=== PATIENT | female | born 1935 ===

== ENCOUNTER 2016-06-21 11:05 | Inpatient (IN) | payer OTHER ==
[2016-06-21 11:06] VITALS: BMI 23.0
--- NOTE | 2016-06-21 11:58 | RAD ---
HISTORY: SOB COMPARISON: Chest x-ray performed 05/11/16 TECHNIQUE: Chest, one view. FINDINGS: LUNGS: Mild left basilar atelectasis or infiltrate. Please note that chest x-ray has limited sensitivity for the detection of pulmonary masses. PLEURA: No significant pleural effusion identified. No definite pneumothorax . CARDIOVASCULAR: Cardiomegaly. OSSEOUS STRUCTURES: Degenerative changes. Acromioclavicular arthropathy. VISUALIZED UPPER ABDOMEN: Unremarkable. OTHER FINDINGS: Right vascular stent. IMPRESSION: Mild left basilar atelectasis or infiltrate. Cardiomegaly.
[2016-06-21 11:59] LABS: BASO % 1.2 % (0.0-2.0); EOS # 0.1 K/uL (0.0-0.7); EOS % 3.7 % (0.0-4.0); HEMATOCRIT 33.5 % (34.0-47.0); LYMPH # 0.6 K/uL (1.0-4.3); LYMPH % 20.5 % (20.0-40.0); MEAN CELL VOLUME 94.6 fL (81.0-99.0); MEAN CORPUSCULAR HEMOGLOBIN 30.7 pg (27.0-31.0); MEAN CORPUSCULAR HGB CONC 32.5 g/dL (33.0-37.0); MEAN PLATELET VOLUME 8.5 fL (7.2-11.7); MONO # 0.4 K/uL (0.0-0.8); MONO % 14.6 % (0.0-10.0); RED CELL DISTRIBUTION WIDTH 15.7 % (11.5-14.5)
[2016-06-21 12:05] LABS: WHITE BLOOD COUNT 2.9 K/uL (4.8-10.8)
[2016-06-21 12:08] LABS: POTASSIUM 4.8 mmol/L (3.6-5.2)
[2016-06-21 12:10] LABS: VENOUS BLOOD GAS BASE EXCESS 14.3 mmol/L (0.0-2.0); VENOUS BLOOD GAS PCO2 61 mmHg (40-60); VENOUS BLOOD PH 7.44 (7.32-7.43)
[2016-06-21 12:10] LABS: ALB/GLOB RATIO 1.1 (1.0-2.1); CALCIUM 9.2 mg/dl (8.6-10.4); TOTAL PROTEIN 7.5 g/dL (6.3-8.3)
[2016-06-21 12:22] LABS: TROPONIN I 0.033 ng/mL (0.00-0.120)
--- NOTE | 2016-06-21 12:27 | C.PDOC ---
Time Seen by Provider: 06/21/16 11:22 Chief Complaint (Nursing): Shortness Of Breath Past Medical History Vital Signs: Last Vital Signs Temp 99.6 F 06/21/16 11:15 Pulse 92 H 06/21/16 11:46 Resp 19 06/21/16 11:46 BP 146/52 L 06/21/16 11:46 Pulse Ox 96 06/21/16 11:46 - Medical History PMH: Anemia, CHF, COPD, HTN, Hypercholesterolemia, Hypothyroidism, End Stage Renal Disease, Chronic Kidney Disease (ESRF, HD T, TH, SA) Denies: HIV, Kidney Stones, Pulmonary Embolism, Sleep Apnea Surgical History: (x3) - [facility] Procedures ASSISTANCE WITH RESPIRATORY VENTILATION, 24-96 HRS, CPAP (03/19/15) ASSISTANCE WITH RESPIRATORY VENTILATION, <24 HRS, CPAP (05/31/15) CONTINUOUS INVASIVE MECHANICAL VENTILATION <96 CONSEC HRS (07/13/13) HEMODIALYSIS (08/25/14) INJECT/INFUSE NEC (04/03/14) NON-INVASIVE MECHANICAL VENTILATION (08/25/14) PERFORMANCE OF URINARY FILTRATION, MULTIPLE (05/31/15) VACCINATION NEC (01/01/14) VENOUS CATHETERIZATION NEC (07/13/13) Family History: States: Unknown Family Hx - Social History Hx Alcohol Use: No Hx Substance Use: No - Immunization History Hx Tetanus Toxoid Vaccination: No Hx Influenza Vaccination: No Hx Pneumococcal Vaccination: Yes ED Course And Treatment - Laboratory Results Result Diagrams: 06/21/16 11:49 06/21/16 11:49 O2 Sat by Pulse Oximetry: 96 - Other Rad cxr X-Ray: Viewed By Me, Read By Radiologist Interpretation: Accession No. : [id number]. Patient Name / ID : SONIA ROSS / [id number]. Exam Date : 06/21/2016 11:28:13 ( Approved ). Study Comment : Sex / Age : F / 80Y. Creator : Yaima Morgan MD. Dictator : Yaima Morgan MD. Expansion Joint Builder : Sheet Metal Shop Foreman : Yaima Morgan MD. Approver2 : Report Date : 06/21/2016 11:57:24. My Comment : . HISTORY: SOB. COMPARISON: Chest x-ray performed 05/11/16. TECHNIQUE: Chest, one view. FINDINGS: LUNGS: Mild left basilar atelectasis or infiltrate. Please note that chest x-ray has limited sensitivity for the detection of pulmonary masses. PLEURA: No significant pleural effusion identified. No definite pneumothorax . CARDIOVASCULAR: Cardiomegaly. OSSEOUS STRUCTURES: Degenerative changes. Acromioclavicular arthropathy. VISUALIZED UPPER ABDOMEN: Unremarkable. OTHER FINDINGS: Right vascular stent. IMPRESSION: Mild left basilar atelectasis or infiltrate. Cardiomegaly.
--- NOTE | 2016-06-21 12:29 | C.PDOC ---
History Of Present Illness 80 y/o female whose PMHx includes ESRD on HD, presents to the ED for evaluation of shortness of breath, cough productive of clear sputum, fatigue, and generalized weakness which began around 3 days ago. Patient states her last hemodialysis was yesterday, and reports it did not improve her symptoms. She denies fever/chills, chest pain, abdominal pain, nausea/vomiting, worsening lower extremity swelling. Time Seen by Provider: 06/21/16 11:22 Chief Complaint (Nursing): Shortness Of Breath History Per: Patient History/Exam Limitations: no limitations Onset/Duration Of Symptoms: Days (3) Current Symptoms Are (Timing): Still Present Quality: denies: "Pain" Exacerbating Factor(s): Coughing Current Respiratory Medications: See Home Med List Severity: Moderate Associated Symptoms: Productive Cough (clear sputum ). denies: Fever, Chills, Chest Pain, Ankle/Leg Swelling Additional History Per: Patient Past Medical History Reviewed: Historical Data, Nursing Documentation, Vital Signs Vital Signs: Last Vital Signs Temp 98 F 06/26/16 16:00 Pulse 87 06/26/16 16:00 Resp 20 06/26/16 16:00 BP 119/65 06/26/16 16:00 Pulse Ox 100 06/26/16 16:00 - Medical History PMH: Anemia, CHF, COPD, HTN, Hypercholesterolemia, Hypothyroidism, End Stage Renal Disease, Chronic Kidney Disease (ESRF, HD T, , SA) Surgical History: (x3) - [facility] Procedures ASSISTANCE WITH RESPIRATORY VENTILATION, 24-96 HRS, CPAP (03/19/15) ASSISTANCE WITH RESPIRATORY VENTILATION, <24 HRS, CPAP (05/31/15) CONTINUOUS INVASIVE MECHANICAL VENTILATION <96 CONSEC HRS (07/13/13) HEMODIALYSIS (08/25/14) INJECT/INFUSE NEC (04/03/14) NON-INVASIVE MECHANICAL VENTILATION (08/25/14) PERFORMANCE OF URINARY FILTRATION, MULTIPLE (05/31/15) VACCINATION NEC (01/01/14) VENOUS CATHETERIZATION NEC (07/13/13) Family History: States: No Known Family Hx - Social History Hx Alcohol Use: No Hx Substance Use: No - Immunization History Hx Tetanus Toxoid Vaccination: No Hx Influenza Vaccination: No Hx Pneumococcal Vaccination: Yes Review Of Systems Except As Marked, All Systems Reviewed And Found Negative. Constitutional: Positive for: Weakness (generalized ), Other (+fatigue ) Cardiovascular: Negative for: Chest Pain, Palpitations Respiratory: Positive for: Cough, Shortness of Breath, Sputum (clear ) Gastrointestinal: Negative for: Nausea, Vomiting, Abdominal Pain, Diarrhea Physical Exam - Physical Exam Appears: Non-toxic, No Acute Distress, Other (comfortable) Skin: Normal Color, Warm, Dry Head: Normacephalic Eye(s): bilateral: Normal Inspection Nose: Normal, No Discharge Oral Mucosa: Moist Throat: Normal, No Erythema, No Exudate Neck: Supple Cardiovascular: Rhythm Regular, Murmur (5/6 holosystolic murmur ) Respiratory: Normal Breath Sounds, No Rales, No Rhonchi, No Wheezing, Other ( patient speaking in full sentences ) Gastrointestinal/Abdominal: Normal Exam, Bowel Sounds, Soft, No Tenderness, No Guarding, No Rebound Extremity: Normal ROM, No Calf Tenderness, Capillary Refill (< 2 seconds), No Swelling (b/l lower extremities ), Other (Right Upper Extremity: AV Fistula present with palpable thrill ) Pulses: Left Dorsalis Pedis: Normal, Right Dorsalis Pedis: Normal Neurological/Psych: Oriented x3 Gait: Steady ED Course And Treatment - Laboratory Results Result Diagrams: 06/25/16 07:03 06/25/16 07:03 O2 Sat by Pulse Oximetry: 96 (RA) Pulse Ox Interpretation: Normal - Other Rad CXR X-Ray: Interpreted by Me, Viewed By Me, Read By Radiologist Interpretation: Accession No. : [id number]. Patient Name / ID : SONIA ROSS / [id number]. Exam Date : 06/21/2016 11:28:13 ( Approved ). Study Comment : Sex / Age : F / 80Y. Creator : Yaima Morgan MD. Dictator : Yaima Morgan MD. Criminal Justice Department Chair : [employer]fuels Plant Construction Worker : Yaima Morgan MD. Approver2 : Report Date : 06/21/2016 11:57:24. My Comment : . HISTORY: SOB. COMPARISON: Chest x-ray performed 05/11/16. TECHNIQUE: Chest, one view. FINDINGS: LUNGS: Mild left basilar atelectasis or infiltrate. Please note that chest x-ray has limited sensitivity for the detection of pulmonary masses. PLEURA: No significant pleural effusion identified. No definite pneumothorax . CARDIOVASCULAR: Cardiomegaly. OSSEOUS STRUCTURES: Degenerative changes. Acromioclavicular arthropathy. VISUALIZED UPPER ABDOMEN: Unremarkable. OTHER FINDINGS: Right vascular stent. IMPRESSION: Mild left basilar atelectasis or infiltrate. Cardiomegaly. Progress Note: Blood work, EKG, CXR ordered and reviewed. Patient given IV solumedrol, duoneb treatments. IV rocephin and IV azithromycin ordered due to infiltrate on CXR. Reevaluation Time: 13:50 Reassessment Condition: Unchanged (Patient reassessed, still c/o SOB. On exam, she now has more wheezing, no accessory muscle use. Will order nebulizer treatments, solumedrol. BNP also very elevated, patient still making UA - IV Lasix ordered. Patient will need admission for pneumonia, dyspnea, asthma, CHF. ) - Physician Consult Information Physician Contacted: Laith Falk Outcome Of Conversation: Discussed patient with Dr. Falk, he agrees with admission for asthma/copd, fluid overload, dyspnea, pneumonia. Disposition - Disposition Disposition: HOSPITALIZED Disposition Time: 14:21 Condition: STABLE - Clinical Impression Clinical Impression: Pneumonia, Dyspnea, Asthma exacerbation, ESRD (end stage renal disease) on dialysis - Scribe Statement The provider has reviewed the documentation as recorded by the Scribe (Vianney Ch) Provider Attestation: All medical record entries made by the Scribe were at my direction and personally dictated by me. I have reviewed the chart and agree that the record accurately reflects my personal performance of the history, physical exam, medical decision making, and the department course for this patient. I have also personally directed, reviewed, and agree with the discharge instructions and disposition. Decision To Admit - Pt Status Changed To: Hospital Disposition Of: Inpatient - Admit Certification Admit to Inpatient:: After my assessment, the patient will require hospitalization for at least two midnights. This is because of the severity of symptoms shown, intensity of services needed, and/or the medical risk in this patient being treated as an outpatient. - InPatient: Physician Admission Certification: I certify that this patient requires 2 or more midnights of care for the following reason:: see notes - . Bed Request Type: Telemetry Admitting Physician: Laith Falk Patient Diagnosis: Pneumonia, Dyspnea, Asthma exacerbation, ESRD (end stage renal disease) on dialysis
[2016-06-21] MEDS ORDERED: Albuterol-Ipratrop 3 mg / 0.5 (3 ml) UD INH STA ×2 (13:49)
[2016-06-21] MEDS ORDERED: Albuterol-Ipratrop 3 mg / 0.5 (3 ml) UD ONE (14:06)
[2016-06-21] MEDS ORDERED: cefTRIAXone IV 1 gm in Dextros 50 ML IV ONE (14:20)
[2016-06-21] MEDS ORDERED: Azithromycin 500 MG in Sodium Chloride 0.9% 250 ML IVPB STA (14:21)
[2016-06-21] MEDS ORDERED: cefTRIAXone IV 1 gm in Dextros 50 ML IVPB ONE (14:36)
[2016-06-21] MEDS ORDERED: Azithromycin 500mg/250ML NS 250 ML IVPB ONE (14:53)
--- NOTE | 2016-06-21 14:59 | CP.PCM.HP ---
Past Patient History - Infectious Disease Hx of Infectious Diseases: None - Tetanus Immunizations Tetanus Immunization: Unknown - Past Medical History & Family History Past Medical History?: Yes - Past Social History Smoking Status: Never Smoked - CARDIAC Hx Congestive Heart Failure: Yes Hx Hypercholesterolemia: Yes Hx Hypertension: Yes - PULMONARY Hx Chronic Obstructive Pulmonary Disease (COPD): Yes - NEUROLOGICAL Hx Neurological Disorder: No - HEENT Hx HEENT Problems: No - RENAL Hx Chronic Kidney Disease: Yes (ESRF, HD T, TH, SA) - ENDOCRINE/METABOLIC Hx Hypothyroidism: Yes - HEMATOLOGICAL/ONCOLOGICAL Hx Anemia: Yes - INTEGUMENTARY Hx Dermatological Problems: No - MUSCULOSKELETAL/RHEUMATOLOGICAL Hx Falls: No - GASTROINTESTINAL Hx Gastrointestinal Disorders: No - GENITOURINARY/GYNECOLOGICAL Hx Genitourinary Disorders: No - PSYCHIATRIC Hx Substance Use: No - SURGICAL HISTORY Hx Surgeries: Yes Hx Arteriovenous Shunt: Yes Hx Vascular Access Device: Yes (Right arm Av fistula) - ANESTHESIA Hx Anesthesia: Yes Hx Anesthesia Reactions: No Meds Allergies/Adverse Reactions: Allergies Allergy/AdvReac Type Severity Reaction Status Date / Time No Known Allergies Allergy Verified 06/21/16 11:37 Results - Vital Signs Recent Vital Signs: Last Vital Signs Temp 99.6 F 06/21/16 11:15 Pulse 74 06/21/16 13:47 Resp 19 06/21/16 13:47 BP 202/70 H 06/21/16 13:47 Pulse Ox 96 06/21/16 13:58 - Labs Result Diagrams: 06/21/16 11:49 06/21/16 11:49
--- NOTE | 2016-06-21 17:49 | CP.PCM.HP ---
<Syeda Yarbrough I - Last Filed: 06/21/16 19:02> History of Present Illness - History of Present Illness History of Present Illness: PGY3 on Medicine Service Patient is a 80 year old female with pmhx of HTN, ESRD on HD and Hypothyroidism who presents to the ED for productive cough with green phlegm since Wednesday. Patient's last HD was on Wednesday and she is usually compliant with dialysis Her daughter noticed that today she fatigued easily nad became dyspneic when she walked 3 blocks. Denies fevers, chills, chest pain, palpitations, dizziness , SOB, headache, nausea, vomiting or abdominal pain. Pmhx: as above Surg hx: Denies Fam hx: Cancer- both parents (unknown types) Social hx: denies smoking, drinking or drugs Allergies: NKDA PMD: Delicia Present on Admission - Present on Admission Any Indicators Present on Admission: No Review of Systems - Constitutional Constitutional: absent: Chills, Fever - EENT Eyes: absent: Change in Vision Nose/Mouth/Throat: absent: Sore Throat - Cardiovascular Cardiovascular: absent: Chest Pain, Palpitations - Respiratory Respiratory: Cough, Dyspnea, Change in Mucous Color. absent: Pain on Inspiration, Chest Congestion - Gastrointestinal Gastrointestinal: absent: Abdominal Pain, Diarrhea, Nausea, Vomiting - Genitourinary Genitourinary: absent: Dysuria - Musculoskeletal Musculoskeletal: absent: Numbness, Tingling - Integumentary Integumentary: absent: Rash - Neurological Neurological: absent: Dizziness, Headaches, Weakness - Psychiatric Psychiatric: absent: Confusion - Endocrine Endocrine: absent: Palpitations - Hematologic/Lymphatic Hematologic: absent: Easy Bleeding Past Patient History - Infectious Disease Hx of Infectious Diseases: None - Tetanus Immunizations Tetanus Immunization: Unknown - Past Medical History & Family History Past Medical History?: Yes - Past Social History Smoking Status: Never Smoked - CARDIAC Hx Congestive Heart Failure: Yes Hx Hypercholesterolemia: Yes Hx Hypertension: Yes - PULMONARY Hx Chronic Obstructive Pulmonary Disease (COPD): Yes - NEUROLOGICAL Hx Neurological Disorder: No - HEENT Hx HEENT Problems: No - RENAL Hx Chronic Kidney Disease: Yes (ESRF, HD T, , SA) - ENDOCRINE/METABOLIC Hx Hypothyroidism: Yes - HEMATOLOGICAL/ONCOLOGICAL Hx Anemia: Yes - INTEGUMENTARY Hx Dermatological Problems: No - MUSCULOSKELETAL/RHEUMATOLOGICAL Hx Falls: No - GASTROINTESTINAL Hx Gastrointestinal Disorders: No - GENITOURINARY/GYNECOLOGICAL Hx Genitourinary Disorders: No - PSYCHIATRIC Hx Substance Use: No - SURGICAL HISTORY Hx Surgeries: Yes Hx Arteriovenous Shunt: Yes Hx Vascular Access Device: Yes (Right arm Av fistula) - ANESTHESIA Hx Anesthesia: Yes Hx Anesthesia Reactions: No Meds Allergies/Adverse Reactions: Allergies Allergy/AdvReac Type Severity Reaction Status Date / Time No Known Allergies Allergy Verified 06/21/16 11:37 Physical Exam - Constitutional Appears: Non-toxic, No Acute Distress - Head Exam Head Exam: ATRAUMATIC, NORMAL INSPECTION, NORMOCEPHALIC - Eye Exam Eye Exam: Normal appearance - ENT Exam ENT Exam: Mucous Membranes Moist - Respiratory Exam Respiratory Exam: Decreased Breath Sounds (in LLL), Prolonged Expiratory Phase, Rhonchi - Cardiovascular Exam Cardiovascular Exam: REGULAR RHYTHM, RRR, +S1, +S2, Systolic Murmur (2/6 systolic murmur) - GI/Abdominal Exam GI & Abdominal Exam: Normal Bowel Sounds, Soft. absent: Tenderness - Extremities Exam Extremities exam: Positive for: normal inspection. Negative for: pedal edema - Neurological Exam Neurological exam: Alert, Oriented x3 - Psychiatric Exam Psychiatric exam: Normal Affect, Normal Mood - Skin Skin Exam: Dry, Normal Color, Warm Results - Vital Signs Recent Vital Signs: Last Vital Signs Temp 98.8 F 06/21/16 17:22 Pulse 96 H 06/21/16 17:22 Resp 20 06/21/16 17:22 BP 135/75 06/21/16 17:22 Pulse Ox 92 L 06/21/16 17:22 - Labs Result Diagrams: 06/21/16 11:49 06/21/16 11:49 Labs: Laboratory Results - last 24 hr 06/21/16 16:28 Lactic Acid 2.0 Assessment & Plan - Assessment and Plan (Free Text) Assessment: 1. Sepsis from Pneumonia Afebrile WBC count 2.9, HR >95 Infiltrate seen on CXR Lactic acid 1.7 Received Zithromax IVPB and Rocephin IVPB Gave 1 dose of Vancomyin 500 mg IVPB Follow up blood and urine cx Monitor CBC and vitals 2. Leukopenia 2.9 Check HIV Could be from sepsis, HIV or malignancy 3. Anemia Hgb 10.9 Order iron studies Monitor CBC 4. Pro BNP elevation 22,000 Order 2D echo 5. ESRD on HD Consent for HD obtained Continue HD on TTS Consult Nephro Dr. Culp 6. HTN Resume home med of Norvasc 5 mg po daily 7. Hypothyroidism Continue Levothyroxine 25 mcg po daily check TSH 8. Prophylaxis SCD's Protonix <Krysta Rojas V - Last Filed: 06/22/16 03:26> Results - Vital Signs Recent Vital Signs: Last Vital Signs Temp 97.9 F 06/21/16 23:45 Pulse 76 06/22/16 00:56 Resp 20 06/21/16 23:45 BP 136/70 06/21/16 23:45 Pulse Ox 98 06/21/16 23:45 - Labs Result Diagrams: 06/21/16 11:49 06/21/16 11:49 Labs: Laboratory Results - last 24 hr 06/21/16 16:28 Lactic Acid 2.0 Attending/Attestation - Attestation I have personally seen and examined this patient.: Yes I have fully participated in the care of the patient.: Yes I have reviewed all pertinent clinical information: Yes Notes (Text): This is late computer entry for 06/21/16. Patient seen at bedside with daughter and son-in law in [facility] [address] 14 in the Emergency Room. Patient is 80 year old Female comes in cough for about 3 days, productive, nonbloody, and does not take any medications nor antibiotics to treat the cough. Patient's daughter reports she is ESRD, about 9 years now, and reports her days are Wednesday//Wednesday and that patient tolerated her dialysis session on Wednesday without complaints. Patient is normally ambulatory, but has shortness of breathe while walking. Family is unaware if she has had her flu nor pneumonia vaccines this year. Family reports she took her blood pressure medication prior to coming. Patient noted to have uncontrolled blood pressure as high SBP: 200s, but remains asymptomatic except for productive cough. 1. Sepsis * High suspicion * Criteria: leukopenia, tachycardic and source of infection: pneumonia * Chest xray (06/21): mild left basilar atelectasis or infiltrate * Per pneumonia severity index, high risk, indicated for inpatient * VBG: lactic acid 1.7, per lactic acid in plasma; 2.0 * In the ED, Received Zithromax IVPB and Rocephin IVPB; ordered for additional dose of 1 dose of Vancomyin 500 mg IVPB X1 * Azithromycin 500mg IV daily and Rocephin 1 gram IV qdaily * F/u blood cultures and urine cultures * Monitor temperature and white count 2. Community Acquired pneumonia * High suspicion * Criteria: leukopenia, tachycardic and source of infection: pneumonia * Chest xray (06/21): mild left basilar atelectasis or infiltrate * Per pneumonia severity index, high risk, indicated for inpatient * VBG: lactic acid 1.7, per lactic acid in plasma; 2.0 * In the ED, Received Zithromax IVPB and Rocephin IVPB; ordered for additional dose of 1 dose of Vancomyin 500 mg IVPB X1 * Azithromycin 500mg IV daily and Rocephin 1 gram IV qdaily * F/u blood cultures and urine cultures * Monitor temperature and white count 3. Leukopenia * WBC 2.9; N: 1.7; in review of EMR, patient has not be leukopenic nor been on antibiotic recently * Check HIV * Note: patient's family hx strong for cancer * Possible related to sepsis * Continue to monitor 4. Anemia * Hgb 10.9 * Order iron studies, b12, ret count, folate, occult blood * Monitor CBC * strong suspicion for anemia of chronic disease 5. Pro BNP elevation * proBNP 22,000 * Patient is ESRD; likely requires dialysis * patient ordered for 2d echo, last echo was about one year per EMR 6. ESRD on HD * Consent for HD obtained by the resident * Continue HD on TTS * Consult Nephro (Dr. Culp) on board 6. Hypertensive urgency * Resume home med of Norvasc 5 mg po daily and given additional dose of Lasix ( patient makes urine) 7. Hypothyroidism * Continue Levothyroxine 25 mcg po daily * check TSH in AM 8. Prophylaxis * SCD's b/l * Protonix 40mg IV daily for GI ppx * Heparin 5000units subq 8hours * PT eval * Florastor 250mg PO bid
[2016-06-22] MEDS: Levothyroxine 25 MCG TAB PO SCH (06:08)
[2016-06-22 07:31] LABS: HEMATOCRIT 30.7 % (34.0-47.0); LYMPH # 0.5 K/uL (1.0-4.3); MEAN CORPUSCULAR HGB CONC 32.5 g/dL (33.0-37.0); MONO # 0.2 K/uL (0.0-0.8); RETIC% 0.4 % (0.5-1.5)
[2016-06-22 07:41] LABS: IRON 65 ug/dL (37-170)
[2016-06-22 07:45] LABS: BASO % 0.3 % (0.0-2.0); LYMPH % 15.2 % (20.0-40.0); MEAN CELL VOLUME 93.9 fL (81.0-99.0); MEAN CORPUSCULAR HEMOGLOBIN 30.5 pg (27.0-31.0); MEAN PLATELET VOLUME 8.7 fL (7.2-11.7); MONO % 6.7 % (0.0-10.0); NRBC % 0.3 % (0.0-2.0); RED CELL DISTRIBUTION WIDTH 15.6 % (11.5-14.5)
[2016-06-22 08:11] LABS: CHLORIDE 95 mmol/L (98-107)
[2016-06-22 08:12] LABS: POTASSIUM 5.3 mmol/L (3.6-5.2); SODIUM 141 mmol/L (132-148)
[2016-06-22 08:14] LABS: AST/SGOT 43 U/L (14-36); BILIRUBIN,TOTAL 0.7 mg/dL (0.2-1.3); CARBON DIOXIDE 32 mmol/L (22-30); GFR AFRICAN-AMERICAN 7
[2016-06-22 08:15] LABS: ALB/GLOB RATIO 1.2 (1.0-2.1); ALKALINE PHOSPHATASE 69 U/L (38-126); ALT/SGPT 45 U/L (9-52); BLOOD UREA NITROGEN 47 mg/dL (7-17); CALCIUM 9.1 mg/dl (8.6-10.4); GLUCOSE,RANDOM 137 mg/dL (65-105); TOTAL PROTEIN 7.3 g/dL (6.3-8.3)
[2016-06-22 08:23] LABS: THYROID STIMULATING HORMONE 0.77 mIU/L (0.46-4.68)
[2016-06-22 08:57] LABS: FOLATE > 20.0 ng/mL
[2016-06-22] MEDS: Saccharomyces Boulardi 250 mg Cap PO SCH ×2 (09:41→18:01)
[2016-06-22] MEDS: Multivitamin Vitamin B Complex (Nephro-Vite) Tab PO SCH (09:41)
[2016-06-22] MEDS: Pantoprazole 40 mg EC Tab PO SCH (09:41)
[2016-06-22] MEDS ORDERED: Azithromycin 500 MG in Sodium Chloride 0.9% 250 ML IVPB SCH (10:00)
--- NOTE | 2016-06-22 12:37 | CP.PCM.CON ---
History of Present Illness - History of Present Illness History of Present Illness: 80 y/o female with Hx/o ESRD on maintenance HD TTS, Paroxismal SVT, CHF, hypothyroidism. presented to ER yesterday for C/o SOB & generalized weakness Pts last dialysis was on Wednesday Past Patient History - Infectious Disease Hx of Infectious Diseases: None - Tetanus Immunizations Tetanus Immunization: Unknown - Past Medical History & Family History Past Medical History?: Yes - Past Social History Smoking Status: Never Smoked - CARDIAC Hx Congestive Heart Failure: Yes Hx Hypercholesterolemia: Yes Hx Hypertension: Yes - PULMONARY Hx Chronic Obstructive Pulmonary Disease (COPD): Yes - NEUROLOGICAL Hx Neurological Disorder: No - HEENT Hx HEENT Problems: No - RENAL Hx Chronic Kidney Disease: Yes Hx Dialysis: Yes (HD TT) Type of Dialysis Access: Right Arm AV fistula Date of Last Dialysis Treatment: 06/20/16 - ENDOCRINE/METABOLIC Hx Hypothyroidism: Yes - HEMATOLOGICAL/ONCOLOGICAL Hx Anemia: Yes - INTEGUMENTARY Hx Dermatological Problems: No - MUSCULOSKELETAL/RHEUMATOLOGICAL Hx Falls: No - GASTROINTESTINAL Hx Gastrointestinal Disorders: No - GENITOURINARY/GYNECOLOGICAL Hx Genitourinary Disorders: No - PSYCHIATRIC Hx Substance Use: No - SURGICAL HISTORY Hx Surgeries: Yes Hx Arteriovenous Shunt: Yes Hx Vascular Access Device: Yes (Right arm Av fistula) - ANESTHESIA Hx Anesthesia: Yes Hx Anesthesia Reactions: No Meds Allergies/Adverse Reactions: Allergies Allergy/AdvReac Type Severity Reaction Status Date / Time No Known Allergies Allergy Verified 06/21/16 11:37 - Medications Medications: Current Medications Amlodipine Besylate (Norvasc) 5 mg PO DAILY [facility] Last Admin: 06/22/16 09:41 Dose: 5 mg Epoetin Len (Procrit) 3,000 unit IV MWF [facility] Heparin Sodium (Porcine) (Heparin) 5,000 units SC Q12 [facility] Last Admin: 06/22/16 09:41 Dose: 5,000 units Azithromycin 500 mg/ Sodium (Chloride) 250 mls @ 250 mls/hr IVPB DAILY [facility] Last Admin: 06/22/16 11:24 Dose: 250 mls/hr Ceftriaxone Sodium 1 gm/ (Sodium Chloride) 100 mls @ 100 mls/hr IVPB DAILY [facility] Last Admin: 06/22/16 09:45 Dose: 100 mls/hr Levothyroxine Sodium (Synthroid) 25 mcg PO DAILY@0630 [facility] Last Admin: 06/22/16 06:08 Dose: 25 mcg Pantoprazole Sodium (Protonix Ec Tab) 40 mg PO DAILY [facility] Last Admin: 06/22/16 09:41 Dose: 40 mg Saccharomyces Boulardii (Florastor) 250 mg PO BID [facility] Last Admin: 06/22/16 09:41 Dose: 250 mg Sevelamer Carbonate (Renvela) 1,600 mg PO TIDCC [facility] Last Admin: 06/22/16 12:32 Dose: 1,600 mg Vitamin B Complex/Vit C/Folic Acid (Nephro-Dana) 1 tab PO DAILY [facility] Last Admin: 06/22/16 09:41 Dose: 1 tab Physical Exam - Constitutional Additional comments: Appears in moderate respiratory distress .Sitting up in bed - Head Exam Head Exam: ATRAUMATIC - Eye Exam Additional comments: No icterus - ENT Exam ENT Exam: Mucous Membranes Moist - Neck Exam Additional comments: JVD + @ 45 degrees - Respiratory Exam Additional comments: B/L generalized wheezes & cracles at bases - Cardiovascular Exam Cardiovascular Exam: REGULAR RHYTHM - GI/Abdominal Exam GI & Abdominal Exam: Soft Additional comments: Nontender - Extremities Exam Additional comments: No pedal edema Results - Vital Signs Recent Vital Signs: Last Vital Signs Temp 98.1 F 06/22/16 07:05 Pulse 83 06/22/16 07:05 Resp 18 06/22/16 07:05 BP 158/82 H 06/22/16 07:05 Pulse Ox 100 06/22/16 07:05 - Labs Result Diagrams: 06/22/16 07:08 06/22/16 07:08 Labs: Laboratory Results - last 24 hr 06/21/16 06/22/16 06/22/16 16:28 07:08 07:35 WBC 3.0 L RBC 3.27 L Hgb 10.0 L Hct 30.7 L MCV 93.9 MCH 30.5 MCHC 32.5 L RDW 15.6 H Plt Count 132 MPV 8.7 Neut % (Auto) 77.8 H Lymph % (Auto) 15.2 L [place] % (Auto) 6.7 Eos % (Auto) 0.0 Baso % (Auto) 0.3 Neut # 2.4 Lymph # 0.5 L [place] # 0.2 Eos # 0.0 Baso # 0.0 Retic Count 0.4 L Sodium 141 Potassium 5.3 H Chloride 95 L Carbon Dioxide 32 H Anion Gap 19 BUN 47 H Creatinine 6.9 H Est GFR ( Amer) 7 Est GFR (Non-Af Amer) 6 POC Glucose (mg/dL) 131 H Random Glucose 137 H Lactic Acid 2.0 Calcium 9.1 Iron 65 TIBC 195 L % Saturation 31 Ferritin 1680.0 Total Bilirubin 0.7 AST 43 H D ALT 45 Alkaline Phosphatase 69 Total Protein 7.3 Albumin 4.0 Globulin 3.3 Albumin/Globulin Ratio 1.2 Vitamin B12 662 Folate > 20.0 TSH 3rd Generation 0.77 HIV 1&2 Antibody Screen Negative Assessment & Plan - Assessment and Plan (Free Text) Assessment: ESRD Volume overload HTN CAD Hypothyroidism Plan: Stat dialysis is ordered. Labs reviewed Monitor BP Will revaluate for extra dialysis tomorrow
--- NOTE | 2016-06-22 14:08 | CARD ---
APPROVED REPORT EXAM: Two-dimensional and M-mode echocardiogram with Doppler and color Doppler. Other Information Quality : GoodRhythm : INDICATION Dyspnea Atrial Fibrillation Congestive Heart Failure RISK FACTORS Hypertension Hyperlipidemia Diabetes M-Mode DIMENSIONS RVDd1.39 (2.1-3.2cm)Left Atrium (MM)4.51 (2.5-4.0cm) IVSd0.97 (0.7-1.1cm)Aortic Root2.29 (2.2-3.7cm) LVDd4.93 (4.0-5.6cm)Aortic Cusp Exc.1.46 (1.5-2.0cm) PWd1.11 (0.7-1.1cm)FS (%) 20 % LVDs3.92 (2.0-3.8cm)LVEF (%)42 (>50%) Aortic Valve AoV Peak Tjbbtmti096.7cm/Janell Peak GR.9mmHgAI P 1/2 Alyf080ho Mitral Valve MV E Hojbeexl532.5cm/sMV A Vraicaiw35.6cm/sE/A ratio1.7 TDI E/Lateral E'0.0E/Medial E'0.0 Tricuspid Valve TR Peak Bzlgskzw543eo/sTR Peak Gr.67pvXkRDEU83wiDe LEFT VENTRICLE The left ventricle is normal size. There is normal left ventricular wall thickness. The Ejection Fraction is 40-45%. No regional wall motion abnormalities noted. The left ventricular diastolic function is normal. No left ventricle thrombus noted on this study. There is no ventricular septal defect visualized. There is no left ventricular aneurysm. There is no mass noted in the left ventricle. RIGHT VENTRICLE The right ventricle is normal size. There is normal right ventricular wall thickness. The right ventricular systolic function is normal. ATRIA The left atrium is moderately dilated. The right atrium size is normal. The interatrial septum is intact with no evidence for an atrial septal defect. AORTIC VALVE The aortic valve is normal in structure and function. There is moderate aortic regurgitation. There is no aortic valvular stenosis. There is no aortic valvular vegetation. MITRAL VALVE The mitral valve is normal in structure and function. There is no evidence of mitral valve prolapse. There is no mitral valve stenosis. Mitral regurgitation is moderate. TRICUSPID VALVE The tricuspid valve is normal in structure and function. There is moderate to severe tricuspid regurgitation. Right ventricular systolic pressure is estimated at 50-60 mmHg. There is moderate-severe pulmonary hypertension. There is no tricuspid valve prolapse or vegetation. There is no tricuspid valve stenosis. PULMONIC VALVE The pulmonary valve is normal in structure and function. There is no pulmonic valvular regurgitation. There is no pulmonic valvular stenosis. GREAT VESSELS The aortic root is normal in size. The ascending aorta is normal in size. The pulmonary artery is normal. The IVC is normal in size and collapses >50% with inspiration. PERICARDIAL EFFUSION There is a small loculated posterior pericardial effusion. There is no pleural effusion. <Conclusion> The Ejection Fraction is 40-45%. The left atrium is moderately dilated. There is moderate aortic regurgitation. Mitral regurgitation is moderate. There is moderate to severe tricuspid regurgitation. Right ventricular systolic pressure is estimated at 50-60 mmHg. There is moderate-severe pulmonary hypertension. There is a small loculated posterior pericardial effusion.
--- NOTE | 2016-06-22 14:49 | CP.PCM.PN ---
<Altagracia Loredo - Last Filed: 06/22/16 14:46> Subjective - Date & Time of Evaluation Date of Evaluation: 06/22/16 Time of Evaluation: 14:46 - Subjective Subjective: Patient seen and examined at bedside. Patient complaining of constant cough and shortness of breath. She is currently on 2L nasal cannula. She states she otherwise feels "regular." Patient denies fever, chills, chest pain, palpitations, abdominal pain, nausea, vomiting, diarrhea and constipation. She notes she produces a small amount of urine. Objective - Vital Signs/Intake and Output Vital Signs (last 24 hours): Temp Pulse Resp BP Pulse Ox 98.1 F 83 18 158/82 H 100 06/22/16 07:05 06/22/16 07:05 06/22/16 07:05 06/22/16 07:05 06/22/16 07:05 - Medications Medications: Current Medications Albuterol/Ipratropium (Duoneb 3 Mg/0.5 Mg (3 Ml) Ud) 3 ml INH RQ6 [facility] Amlodipine Besylate (Norvasc) 10 mg PO DAILY [facility] Epoetin Len (Procrit) 3,000 unit IV MWF [facility] Guaifenesin/Dextromethorphan (Robitussin Dm) 5 ml PO Q4H PRN PRN Reason: Cough Heparin Sodium (Porcine) (Heparin) 5,000 units SC Q12 [facility] Last Admin: 06/22/16 09:41 Dose: 5,000 units Moxifloxacin HCl (Avelox Iv 400mg/250ml Ns) 250 mls @ 167 mls/hr IVPB Q24H [facility] Levothyroxine Sodium (Synthroid) 25 mcg PO DAILY@0630 [facility] Last Admin: 06/22/16 06:08 Dose: 25 mcg Pantoprazole Sodium (Protonix Ec Tab) 40 mg PO DAILY [facility] Last Admin: 06/22/16 09:41 Dose: 40 mg Saccharomyces Boulardii (Florastor) 250 mg PO BID [facility] Last Admin: 06/22/16 09:41 Dose: 250 mg Sevelamer Carbonate (Renvela) 1,600 mg PO TIDCC [facility] Last Admin: 06/22/16 12:32 Dose: 1,600 mg Vitamin B Complex/Vit C/Folic Acid (Nephro-Dana) 1 tab PO DAILY [facility] Last Admin: 06/22/16 09:41 Dose: 1 tab - Labs Labs: 06/22/16 07:08 06/22/16 07:08 PT 11.0 SECONDS (9.7-12.2) 06/21/16 11:49 INR 1.0 06/21/16 11:49 APTT 31 SECONDS (21-34) 06/21/16 11:49 - Constitutional Appears: Non-toxic, No Acute Distress - Head Exam Head Exam: ATRAUMATIC, NORMAL INSPECTION, NORMOCEPHALIC - Eye Exam Eye Exam: EOMI, Normal appearance, PERRL - ENT Exam ENT Exam: Mucous Membranes Moist - Neck Exam Neck Exam: Full ROM, Normal Inspection - Respiratory Exam Respiratory Exam: Clear to Ausculation Bilateral, Wheezes, NORMAL BREATHING PATTERN. absent: Rales - Cardiovascular Exam Cardiovascular Exam: +S1, +S2, Murmur. absent: Tachycardia - GI/Abdominal Exam GI & Abdominal Exam: Soft, Normal Bowel Sounds. absent: Guarding, Tenderness - Extremities Exam Extremities Exam: Normal Inspection. absent: Pedal Edema, Tenderness - Neurological Exam Neurological Exam: Alert, Awake - Psychiatric Exam Psychiatric exam: Normal Affect, Normal Mood - Skin Skin Exam: Intact, Normal Color, Warm Assessment and Plan - Assessment and Plan (Free Text) Assessment: 1. Healthcare Acquired Pneumonia Afebrile WBC count 3.0, HR 83 CXR: Mild L basilar atelectasis or infiltrate. Discontinued Zithromax IVPB and Rocephin IVPB. Start Moxifloxacin 400 mg IVPB q24h. Start Vancomycin pending sputum culture result Start Robitussin DM and Duoneb RQ6H [facility] Follow-up Influenza A/B Follow up blood and urine cx Monitor CBC and vitals 2. Leukopenia likely secondary to ESRD on hemodialysis - immunocompromised WBC 3.0 HIV - negative 3. Anemia of Chronic Disease Hgb 10.0 Iron 65, TIBC 195, % Saturation 33, Ferritin 1680 Started on Procrit 3,000 U IV MWF Nephro-Dana po daily Monitor 4. ESRD on HD Hemodialysis today per measurement technician, Dr. Castro. Will be re-evaluated for extra dialysis tomorrow. Consent for HD obtained HD schedule on TTS Renvela 1600 mg po TIDCC Pro-BNP [id number]. Follow-up Echocardiogram Nephrology, Dr. Culp, consulted. 5. Hypertension Blood pressure 158/82 Increased Norvasc to 10 mg po daily Monitor pressure 6. Hypothyroidism Continue Levothyroxine 25 mcg po daily TSH 0.77 7. Prophylaxis Florastor 250 mg po BID Heparin 5000 U SC Q12 [facility] Protonix <Vimal Parsons - Last Filed: 07/27/16 12:03> Objective - Vital Signs/Intake and Output Vital Signs (last 24 hours): Temp Pulse Resp BP Pulse Ox 98 F 87 20 119/65 96 06/26/16 16:00 06/26/16 16:00 06/26/16 16:00 06/26/16 16:00 06/28/16 09:40 - Labs Labs: 06/25/16 07:03 06/25/16 07:03 PT 11.0 SECONDS (9.7-12.2) 06/21/16 11:49 INR 1.0 06/21/16 11:49 APTT 31 SECONDS (21-34) 06/21/16 11:49 Attending/Attestation - Attestation I have personally seen and examined this patient.: Yes I have fully participated in the care of the patient.: Yes I have reviewed all pertinent clinical information, including history, physical exam and plan: Yes Notes (Text): Patient seen and examined with the resident. Agree with the resident's evaluation, assessment and plan. Healthcare Acquired Pneumonia
[2016-06-22] MEDS: Epoetin Alfa Dialysis 3000 UNIT/ML Inj IV SCH (16:41)
[2016-06-22] MEDS: Moxifloxacin IV 400mg/250ml NS 250 ML IVPB SCH (18:01)
[2016-06-22] MEDS: Albuterol-Ipratrop 3 mg / 0.5 (3 ml) UD INH SCH (19:36)
[2016-06-23] MEDS: Albuterol-Ipratrop 3 mg / 0.5 (3 ml) UD INH SCH ×4 (01:10→21:02)
[2016-06-23] MEDS: Levothyroxine 25 MCG TAB PO SCH (05:58)
[2016-06-23 06:18] LABS: BASO % 0.6 % (0.0-2.0); EOS # 0.1 K/uL (0.0-0.7); EOS % 2.4 % (0.0-4.0); HEMATOCRIT 31.8 % (34.0-47.0); LYMPH # 1.3 K/uL (1.0-4.3); LYMPH % 23.3 % (20.0-40.0); MEAN CELL VOLUME 94.6 fL (81.0-99.0); MEAN CORPUSCULAR HEMOGLOBIN 30.4 pg (27.0-31.0); MEAN CORPUSCULAR HGB CONC 32.2 g/dL (33.0-37.0); MEAN PLATELET VOLUME 9.3 fL (7.2-11.7); MONO # 0.5 K/uL (0.0-0.8); MONO % 9.7 % (0.0-10.0); RED CELL DISTRIBUTION WIDTH 15.7 % (11.5-14.5); WHITE BLOOD COUNT 5.4 K/uL (4.8-10.8)
[2016-06-23 06:30] LABS: BILIRUBIN,TOTAL 0.8 mg/dL (0.2-1.3)
[2016-06-23 06:31] LABS: ALB/GLOB RATIO 1.2 (1.0-2.1); CALCIUM 8.3 mg/dl (8.6-10.4); MAGNESIUM 2.1 mg/dL (1.6-2.3); TOTAL PROTEIN 7.2 g/dL (6.3-8.3)
[2016-06-23] MEDS ORDERED: Pneumococcal 23-Valent Vaccine IM ONE (10:00)
[2016-06-23] MEDS: Multivitamin Vitamin B Complex (Nephro-Vite) Tab PO SCH (10:59)
[2016-06-23] MEDS: Pantoprazole 40 mg EC Tab PO SCH (10:59)
[2016-06-23] MEDS: Saccharomyces Boulardi 250 mg Cap PO SCH ×2 (10:59→18:14)
--- NOTE | 2016-06-23 11:21 | CP.PCM.CON ---
History of Present Illness - History of Present Illness History of Present Illness: 80 y/o female whose PMHx includes ESRD, presents to the ED for evaluation of shortness of breath, cough productive of clear sputum, fatigue, and generalized weakness which began around 3 days ago. Patient states her last hemodialysis was yesterday, and reports it did not improve her symptoms. Otherwise, she denies fever, chills, chest pain, and lower extremity swelling. - Medical History PMH: Anemia, CHF, COPD, HTN, Hypercholesterolemia, Hypothyroidism, End Stage Renal Disease, Chronic Kidney Disease (ESRF, HD T, TH, SA) Surgical History: (x3) - [facility] Procedures ASSISTANCE WITH RESPIRATORY VENTILATION, 24-96 HRS, CPAP (03/19/15) ASSISTANCE WITH RESPIRATORY VENTILATION, <24 HRS, CPAP (05/31/15) CONTINUOUS INVASIVE MECHANICAL VENTILATION <96 CONSEC HRS (07/13/13) HEMODIALYSIS (08/25/14) INJECT/INFUSE NEC (04/03/14) NON-INVASIVE MECHANICAL VENTILATION (08/25/14) PERFORMANCE OF URINARY FILTRATION, MULTIPLE (05/31/15) VACCINATION NEC (01/01/14) VENOUS CATHETERIZATION NEC (07/13/13) Past Patient History - Infectious Disease Hx of Infectious Diseases: None - Tetanus Immunizations Tetanus Immunization: Unknown - Past Medical History & Family History Past Medical History?: Yes - Past Social History Smoking Status: Never Smoked - CARDIAC Hx Congestive Heart Failure: Yes Hx Hypercholesterolemia: Yes Hx Hypertension: Yes - PULMONARY Hx Chronic Obstructive Pulmonary Disease (COPD): Yes - NEUROLOGICAL Hx Neurological Disorder: No - HEENT Hx HEENT Problems: No - RENAL Hx Chronic Kidney Disease: Yes Hx Dialysis: Yes (HD TT) Type of Dialysis Access: Right Arm AV fistula Date of Last Dialysis Treatment: 06/20/16 - ENDOCRINE/METABOLIC Hx Hypothyroidism: Yes - HEMATOLOGICAL/ONCOLOGICAL Hx Anemia: Yes - INTEGUMENTARY Hx Dermatological Problems: No - MUSCULOSKELETAL/RHEUMATOLOGICAL Hx Falls: No - GASTROINTESTINAL Hx Gastrointestinal Disorders: No - GENITOURINARY/GYNECOLOGICAL Hx Genitourinary Disorders: No - PSYCHIATRIC Hx Substance Use: No - SURGICAL HISTORY Hx Surgeries: Yes Hx Arteriovenous Shunt: Yes Hx Vascular Access Device: Yes (Right arm Av fistula) - ANESTHESIA Hx Anesthesia: Yes Hx Anesthesia Reactions: No Meds Allergies/Adverse Reactions: Allergies Allergy/AdvReac Type Severity Reaction Status Date / Time No Known Allergies Allergy Verified 06/21/16 11:37 - Medications Medications: Current Medications Albuterol/Ipratropium (Duoneb 3 Mg/0.5 Mg (3 Ml) Ud) 3 ml INH RQ6 [facility] Last Admin: 06/23/16 08:43 Dose: Not Given Amlodipine Besylate (Norvasc) 10 mg PO DAILY [facility] Last Admin: 06/23/16 10:59 Dose: 10 mg Epoetin Len (Procrit) 3,000 unit IV MWF [facility] Last Admin: 06/22/16 16:41 Dose: 3,000 unit Guaifenesin/Dextromethorphan (Robitussin Dm) 5 ml PO Q4H PRN PRN Reason: Cough Heparin Sodium (Porcine) (Heparin) 5,000 units SC Q12 [facility] Last Admin: 06/23/16 10:58 Dose: 5,000 units Moxifloxacin HCl (Avelox Iv 400mg/250ml Ns) 250 mls @ 167 mls/hr IVPB Q24H [facility] Last Admin: 06/22/16 18:01 Dose: 167 mls/hr Levothyroxine Sodium (Synthroid) 25 mcg PO DAILY@0630 [facility] Last Admin: 06/23/16 05:58 Dose: 25 mcg Pantoprazole Sodium (Protonix Ec Tab) 40 mg PO DAILY [facility] Last Admin: 06/23/16 10:59 Dose: 40 mg Saccharomyces Boulardii (Florastor) 250 mg PO BID [facility] Last Admin: 06/23/16 10:59 Dose: 250 mg Sevelamer Carbonate (Renvela) 1,600 mg PO TIDCC [facility] Last Admin: 06/23/16 08:54 Dose: 1,600 mg Vitamin B Complex/Vit C/Folic Acid (Nephro-Dana) 1 tab PO DAILY [facility] Last Admin: 06/23/16 10:59 Dose: 1 tab Results - Vital Signs Recent Vital Signs: Last Vital Signs Temp 98.7 F 06/23/16 08:49 Pulse 93 H 06/23/16 10:57 Resp 18 06/23/16 08:49 BP 167/53 H 06/23/16 10:57 Pulse Ox 97 06/23/16 08:49 - Labs Result Diagrams: 06/23/16 06:11 06/23/16 06:11 Labs: Laboratory Results - last 24 hr 06/22/16 06/22/16 06/22/16 07:35 17:17 21:16 WBC RBC Hgb Hct MCV MCH MCHC RDW Plt Count MPV Neut % (Auto) Lymph % (Auto) Gaston % (Auto) Eos % (Auto) Baso % (Auto) Neut # Lymph # Gaston # Eos # Baso # Sodium Potassium Chloride Carbon Dioxide Anion Gap BUN Creatinine Est GFR ( Amer) Est GFR (Non-Af Amer) POC Glucose (mg/dL) 131 H 93 148 H Random Glucose Calcium Magnesium Total Bilirubin AST ALT Alkaline Phosphatase Total Protein Albumin Globulin Albumin/Globulin Ratio 06/23/16 06/23/16 06:11 06:51 WBC 5.4 D RBC 3.37 L Hgb 10.2 L Hct 31.8 L MCV 94.6 MCH 30.4 MCHC 32.2 L RDW 15.7 H Plt Count 126 L MPV 9.3 Neut % (Auto) 64.0 Lymph % (Auto) 23.3 Gaston % (Auto) 9.7 Eos % (Auto) 2.4 Baso % (Auto) 0.6 Neut # 3.4 Lymph # 1.3 Gaston # 0.5 Eos # 0.1 Baso # 0.0 Sodium 139 Potassium 4.0 Chloride 96 L Carbon Dioxide 33 H Anion Gap 14 BUN 30 H Creatinine 4.7 H Est GFR ( Amer) 11 Est GFR (Non-Af Amer) 9 POC Glucose (mg/dL) 102 Random Glucose 108 H Calcium 8.3 L Magnesium 2.1 Total Bilirubin 0.8 AST 60 H D ALT 74 H D Alkaline Phosphatase 75 Total Protein 7.2 Albumin 4.0 Globulin 3.3 Albumin/Globulin Ratio 1.2
--- NOTE | 2016-06-23 11:52 | CP.PCM.PN ---
Subjective - Date & Time of Evaluation Date of Evaluation: 06/23/16 Time of Evaluation: 10:15 - Subjective Subjective: Pt states that she still feels SOB + orthopnea noted Objective - Vital Signs/Intake and Output Vital Signs (last 24 hours): Temp Pulse Resp BP Pulse Ox 98.7 F 93 H 18 167/53 H 97 06/23/16 08:49 06/23/16 10:57 06/23/16 08:49 06/23/16 10:57 06/23/16 08:49 - Medications Medications: Current Medications Albuterol/Ipratropium (Duoneb 3 Mg/0.5 Mg (3 Ml) Ud) 3 ml INH RQ6 [facility] Last Admin: 06/23/16 08:43 Dose: Not Given Amlodipine Besylate (Norvasc) 10 mg PO DAILY [facility] Last Admin: 06/23/16 10:59 Dose: 10 mg Epoetin Len (Procrit) 3,000 unit IV MWF [facility] Last Admin: 06/22/16 16:41 Dose: 3,000 unit Guaifenesin/Dextromethorphan (Robitussin Dm) 5 ml PO Q4H PRN PRN Reason: Cough Heparin Sodium (Porcine) (Heparin) 5,000 units SC Q12 [facility] Last Admin: 06/23/16 10:58 Dose: 5,000 units Moxifloxacin HCl (Avelox Iv 400mg/250ml Ns) 250 mls @ 167 mls/hr IVPB Q24H [facility] Last Admin: 06/22/16 18:01 Dose: 167 mls/hr Levothyroxine Sodium (Synthroid) 25 mcg PO DAILY@0630 [facility] Last Admin: 06/23/16 05:58 Dose: 25 mcg Pantoprazole Sodium (Protonix Ec Tab) 40 mg PO DAILY [facility] Last Admin: 06/23/16 10:59 Dose: 40 mg Saccharomyces Boulardii (Florastor) 250 mg PO BID [facility] Last Admin: 06/23/16 10:59 Dose: 250 mg Sevelamer Carbonate (Renvela) 1,600 mg PO TIDCC [facility] Last Admin: 06/23/16 08:54 Dose: 1,600 mg Vitamin B Complex/Vit C/Folic Acid (Nephro-Dana) 1 tab PO DAILY [facility] Last Admin: 06/23/16 10:59 Dose: 1 tab - Labs Labs: 06/23/16 06:11 06/23/16 06:11 PT 11.0 SECONDS (9.7-12.2) 06/21/16 11:49 INR 1.0 06/21/16 11:49 APTT 31 SECONDS (21-34) 06/21/16 11:49 - Respiratory Exam Additional comments: B/L rhonchi - Cardiovascular Exam Cardiovascular Exam: REGULAR RHYTHM - Extremities Exam Additional comments: No edema or cyanosis Assessment and Plan - Assessment and Plan (Free Text) Assessment: ESRD Volume overload improving HTN Plan: Pt is scheduled for extra dialysis today Willl continue dialysis TTS BP is improving
[2016-06-23] MEDS: Moxifloxacin IV 400mg/250ml NS 250 ML IVPB SCH (14:13)
--- NOTE | 2016-06-23 17:38 | CP.PCM.PN ---
<Altagracia Loredo - Last Filed: 06/23/16 17:44> Subjective - Date & Time of Evaluation Date of Evaluation: 06/23/16 Time of Evaluation: 17:36 - Subjective Subjective: Patient seen and examined at bedside. Patient is resting comfortably. She states she feels significantly improved. Patient denies chest pain, shortness of breath, wheezing, abdominal pain, nausea, vomiting, constipation, diarrhea, and dysuria. Per nursing, patient had positive fecal occult blood test of stool. Objective - Vital Signs/Intake and Output Vital Signs (last 24 hours): Temp Pulse Resp BP Pulse Ox 98.7 F 82 20 123/72 100 06/23/16 15:52 06/23/16 15:52 06/23/16 15:52 06/23/16 15:52 06/23/16 15:52 Intake and Output: 06/23/16 06/23/16 06:59 18:59 Intake Total 550 Balance 550 - Medications Medications: Current Medications Albuterol/Ipratropium (Duoneb 3 Mg/0.5 Mg (3 Ml) Ud) 3 ml INH RQ6 [facility] Last Admin: 06/23/16 14:03 Dose: 3 ml Amlodipine Besylate (Norvasc) 10 mg PO DAILY [facility] Last Admin: 06/23/16 10:59 Dose: 10 mg Epoetin Len (Procrit) 3,000 unit IV MWF [facility] Last Admin: 06/22/16 16:41 Dose: 3,000 unit Guaifenesin/Dextromethorphan (Robitussin Dm) 5 ml PO Q4H PRN PRN Reason: Cough Heparin Sodium (Porcine) (Heparin) 5,000 units SC Q12 [facility] Last Admin: 06/23/16 10:58 Dose: 5,000 units Moxifloxacin HCl (Avelox Iv 400mg/250ml Ns) 250 mls @ 167 mls/hr IVPB Q24H [facility] Last Admin: 06/23/16 14:13 Dose: 167 mls/hr Levothyroxine Sodium (Synthroid) 25 mcg PO DAILY@0630 [facility] Last Admin: 06/23/16 05:58 Dose: 25 mcg Pantoprazole Sodium (Protonix Ec Tab) 40 mg PO DAILY [facility] Last Admin: 06/23/16 10:59 Dose: 40 mg Saccharomyces Boulardii (Florastor) 250 mg PO BID [facility] Last Admin: 06/23/16 10:59 Dose: 250 mg Sevelamer Carbonate (Renvela) 1,600 mg PO TIDCC [facility] Last Admin: 06/23/16 12:58 Dose: 1,600 mg Vitamin B Complex/Vit C/Folic Acid (Nephro-Dana) 1 tab PO DAILY [facility] Last Admin: 06/23/16 10:59 Dose: 1 tab - Labs Labs: 06/23/16 06:11 06/23/16 06:11 PT 11.0 SECONDS (9.7-12.2) 06/21/16 11:49 INR 1.0 06/21/16 11:49 APTT 31 SECONDS (21-34) 06/21/16 11:49 - Constitutional Appears: Non-toxic, No Acute Distress - Head Exam Head Exam: ATRAUMATIC, NORMAL INSPECTION, NORMOCEPHALIC - Eye Exam Eye Exam: EOMI, Normal appearance, PERRL - ENT Exam ENT Exam: Mucous Membranes Moist, Normal Exam - Neck Exam Neck Exam: Full ROM, Normal Inspection - Respiratory Exam Respiratory Exam: Wheezes, NORMAL BREATHING PATTERN - Cardiovascular Exam Cardiovascular Exam: +S1, +S2, Murmur. absent: Tachycardia - GI/Abdominal Exam GI & Abdominal Exam: Soft, Normal Bowel Sounds. absent: Guarding, Rigid, Tenderness - Extremities Exam Extremities Exam: Normal Inspection. absent: Pedal Edema, Tenderness - Back Exam Back Exam: NORMAL INSPECTION - Neurological Exam Neurological Exam: Alert, Awake, Oriented x3 - Psychiatric Exam Psychiatric exam: Normal Affect, Normal Mood - Skin Skin Exam: Intact, Normal Color, Warm Assessment and Plan - Assessment and Plan (Free Text) Assessment: 1. Healthcare Acquired Pneumonia Afebrile WBC 5.4 Clinically improved CXR: Mild L basilar atelectasis or infiltrate. Discontinued Zithromax IVPB and Rocephin IVPB. Continue Moxifloxacin 400 mg IVPB q24h. Continue Robitussin DM and Duoneb RQ6H [facility] Influenza A/B - negative Blood culture - no growth (preliminary) Monitor CBC and vitals 2. Leukopenia likely secondary to ESRD on hemodialysis - immunocompromised WBC 5.4 HIV - negative 3. Anemia of Chronic Disease Hgb 10.2 Iron 65, TIBC 195, % Saturation 33, Ferritin 1680 Started on Procrit 3,000 U IV MWF Nephro-Dana po daily Fecal Occult Blood positive. Will refer patient to [facility] clinic once discharged. Monitor 4. ESRD on HD Extra Hemodialysis today per biodiesel technology manager, Dr. Castro. HD schedule on TTS Renvela 1600 mg po TIDCC Pro-BNP [id number]. Follow-up Echocardiogram Nephrology, Dr. Culp, consulted. 5. Hypertension Blood pressure 123/72 Increased Norvasc to 10 mg po daily Monitor pressure 6. Hypothyroidism Continue Levothyroxine 25 mcg po daily TSH 0.77 7. Prophylaxis Florastor 250 mg po BID Heparin 5000 U SC Q12 [facility] Protonix Dispo Patient likely to be discharged tomorrow. <Vimal Parsons - Last Filed: 07/27/16 12:42> Objective - Vital Signs/Intake and Output Vital Signs (last 24 hours): Temp Pulse Resp BP Pulse Ox 98 F 87 20 119/65 96 06/26/16 16:00 06/26/16 16:00 06/26/16 16:00 06/26/16 16:00 06/28/16 09:40 - Labs Labs: 06/25/16 07:03 06/25/16 07:03 PT 11.0 SECONDS (9.7-12.2) 06/21/16 11:49 INR 1.0 06/21/16 11:49 APTT 31 SECONDS (21-34) 06/21/16 11:49 Attending/Attestation - Attestation I have personally seen and examined this patient.: Yes I have fully participated in the care of the patient.: Yes I have reviewed all pertinent clinical information, including history, physical exam and plan: Yes Notes (Text): Patient seen and examined with the resident. Agree with the resident's evaluation, assessment and plan. 1. Healthcare Acquired Pneumonia Afebrile WBC 5.4 Clinically improved CXR: Mild L basilar atelectasis or infiltrate. Discontinued Zithromax IVPB and Rocephin IVPB. Continue Moxifloxacin 400 mg IVPB q24h. Continue Robitussin DM and Duoneb RQ6H [facility] Influenza A/B - negative Blood culture - no growth (preliminary) Monitor CBC and vitals 2. Leukopenia likely secondary to ESRD on hemodialysis - immunocompromised WBC 5.4 HIV - negative 3. Anemia of Chronic Disease Hgb 10.2 Iron 65, TIBC 195, % Saturation 33, Ferritin 1680 Started on Procrit 3,000 U IV MWF Nephro-Dana po daily Fecal Occult Blood positive. Will refer patient to [facility] once discharged. Monitor 4. ESRD on HD Extra Hemodialysis today per biodiesel technology manager, Dr. Castro. HD schedule on TTS Renvela 1600 mg po TIDCC Pro-BNP [id number]. Follow-up Echocardiogram Nephrology, Dr. Culp, consulted.
--- NOTE | 2016-06-23 17:44 | CP.PCM.PN ---
Objective - Vital Signs/Intake and Output Vital Signs (last 24 hours): Temp Pulse Resp BP Pulse Ox 98.7 F 82 20 123/72 100 06/23/16 15:52 06/23/16 15:52 06/23/16 15:52 06/23/16 15:52 06/23/16 15:52 Intake and Output: 06/23/16 06/23/16 06:59 18:59 Intake Total 550 Balance 550 - Medications Medications: Current Medications Albuterol/Ipratropium (Duoneb 3 Mg/0.5 Mg (3 Ml) Ud) 3 ml INH RQ6 [facility] Last Admin: 06/23/16 14:03 Dose: 3 ml Amlodipine Besylate (Norvasc) 10 mg PO DAILY [facility] Last Admin: 06/23/16 10:59 Dose: 10 mg Epoetin Len (Procrit) 3,000 unit IV MWF [facility] Last Admin: 06/22/16 16:41 Dose: 3,000 unit Guaifenesin/Dextromethorphan (Robitussin Dm) 5 ml PO Q4H PRN PRN Reason: Cough Heparin Sodium (Porcine) (Heparin) 5,000 units SC Q12 [facility] Last Admin: 06/23/16 10:58 Dose: 5,000 units Moxifloxacin HCl (Avelox Iv 400mg/250ml Ns) 250 mls @ 167 mls/hr IVPB Q24H [facility] Last Admin: 06/23/16 14:13 Dose: 167 mls/hr Levothyroxine Sodium (Synthroid) 25 mcg PO DAILY@0630 [facility] Last Admin: 06/23/16 05:58 Dose: 25 mcg Pantoprazole Sodium (Protonix Ec Tab) 40 mg PO DAILY [facility] Last Admin: 06/23/16 10:59 Dose: 40 mg Saccharomyces Boulardii (Florastor) 250 mg PO BID [facility] Last Admin: 06/23/16 10:59 Dose: 250 mg Sevelamer Carbonate (Renvela) 1,600 mg PO TIDCC [facility] Last Admin: 06/23/16 12:58 Dose: 1,600 mg Vitamin B Complex/Vit C/Folic Acid (Nephro-Dana) 1 tab PO DAILY [facility] Last Admin: 06/23/16 10:59 Dose: 1 tab - Labs Labs: 06/23/16 06:11 06/23/16 06:11 PT 11.0 SECONDS (9.7-12.2) 06/21/16 11:49 INR 1.0 06/21/16 11:49 APTT 31 SECONDS (21-34) 06/21/16 11:49
[2016-06-24] MEDS: guaiFENesin DM 100 mg-10 mg/5 ml UD PO PRN ×2 (00:49→23:31)
[2016-06-24] MEDS: Albuterol-Ipratrop 3 mg / 0.5 (3 ml) UD INH SCH ×4 (02:00→20:19)
--- NOTE | 2016-06-24 05:22 | CON ---
DATE: 06/23/2016 REASON FOR CONSULTATION: This is a 80-year-old female referred for infectious disease evaluation for antibiotic management. HISTORY OF PRESENT ILLNESS: The patient is a 80-year-old female with a complex medical history, who was admitted to [facility] with a chief complaint of fever, chills, cough, mike rtness of breath, weakness. In the Emergency Room, she was found to have elevated systolic blood pre ssure of . She was treated successfully and eventually stabilized and transferred [facility]. Septic workup was done. She did not meet sepsis criteria, and chest x-ray found in filtrates on chest x-ray, consistent with community-acquired pneumonia; however, this is a special ci rcumstance since the patient is on hemodialysis. 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 SOCIAL HISTORY: Does not drink, smoke, or use intravenous drugs. No recent travel. No pets. No ex posure to toxins or chemicals. FAMILY HISTORY: Noncontributory. Positive high blood pressure. ALLERGIES: No known allergies to medications. CURRENT MEDICATIONS: Reviewed and include: Levofloxacin 500 mg IV every 48 hours. She also given s tat doses of vancomycin. PHYSICAL EXAMINATION: GENERAL: Reveals a well-nourished, well-developed female, appears to be her stated age, awake, alert , oriented. VITAL SIGNS: T-max 101, blood pressure 110/70, heart rate 106, respiratory rate is 16. HEENT: Normocephalic, atraumatic. Eyes: Pupils reactive to light. Extraocular motions intact. Sc lerae nonicteric. Conjunctivae are pink. Ears: Cerumen bilaterally. Nose: Septum midline. Mouth : Pharynx not injected. Tongue midline. No thrush. NECK: No rigidity. No thyromegaly. No bruits. No tracheal deviation. CHEST: Symmetrical bilaterally. Few scattered rhonchi, and rales right base. HEART: S1, S2. LUNGS: Distant and regular. No murmurs, rubs, or gallops. ABDOMEN: Soft, nontender. No masses. No guarding. No rebound. EXTREMITIES: Osteoarthritic changes. Pulses palpable. Joints: Decreased range of motion, but no g ross deformities. No ankle edema present. NEUROLOGIC: Cranial nerves II-XII intact. Motor strength is fairly well preserved. SENSORY: Appears to be within normal limits. Chest x-ray reviewed. Labs reviewed. Mild leukocytosis noted. BUN and creatinine elevated. IMPRESSION: 1. Community-acquired pneumonia in a 80-year-old female from the community. However, the patient do es attend dialysis clinic and the possibility of methicillin-resistant Staphylococcus aureus is consi dered. Her rapid influenza test was negative and possibilities include pneumococcus, Haemophilus, an d strep as well as staph including methicillin-resistant Staphylococcus aureus. A stat dose of vanco mycin was given after the blood cultures were sent. Sputum cultures have been ordered, but are not r esulted yet. The patient has been started on a quinolone for broad-spectrum coverage of pneumococcus , Haemophilus, Gram negatives. The patient will be reevaluated on a regular basis and if necessary, can be expanded to include pseudomonas should the patient fail to respond; however, the patient has no underlying or preexisting lung disease, and has not been hospitalized within the last 30 days , making the likelihood of Gram negatives much less. Will need careful, close monitoring and observa tion. We will follow along with you and add further recommendations. Thank you very much for allowing me to participate in the care of your patients. Justice Zambrano MD cc: [id number] TT: 06/24/2016 05:22:03 Confirmation # [id number] Dictation # [id number] tn
[2016-06-24] MEDS: Levothyroxine 25 MCG TAB PO SCH (06:30)
[2016-06-24] MEDS: Epoetin Alfa Dialysis 3000 UNIT/ML Inj IV SCH (09:30)
[2016-06-24] MEDS: Saccharomyces Boulardi 250 mg Cap PO SCH ×2 (10:15→17:29)
[2016-06-24] MEDS: Multivitamin Vitamin B Complex (Nephro-Vite) Tab PO SCH (10:15)
[2016-06-24] MEDS: Pantoprazole 40 mg EC Tab PO SCH (10:15)
--- NOTE | 2016-06-24 11:11 | CP.PCM.PN ---
<Altagracia Loredo - Last Filed: 06/24/16 14:09> Subjective - Date & Time of Evaluation Date of Evaluation: 06/24/16 Time of Evaluation: 11:10 - Subjective Subjective: Patient seen and examined at bedside. Patient states she feels worse. She received extra hemodialysis yesterday. She continues to have cough. Patient denies chest pain, shortness of breath, abdominal pain, nausea, vomiting, constipation, diarrhea, and dysuria. Objective - Vital Signs/Intake and Output Vital Signs (last 24 hours): Temp Pulse Resp BP Pulse Ox 98.0 F 89 18 140/58 L 100 06/24/16 09:13 06/24/16 09:13 06/24/16 09:13 06/24/16 09:13 06/24/16 09:13 Intake and Output: 06/24/16 06/24/16 06:59 18:59 Intake Total 300 Balance 300 - Medications Medications: Current Medications Albuterol/Ipratropium (Duoneb 3 Mg/0.5 Mg (3 Ml) Ud) 3 ml INH RQ6 [facility] Last Admin: 06/24/16 07:40 Dose: 3 ml Amlodipine Besylate (Norvasc) 10 mg PO DAILY [facility] Last Admin: 06/24/16 10:16 Dose: 10 mg Epoetin Len (Procrit) 3,000 unit IV MWF [facility] Last Admin: 06/22/16 16:41 Dose: 3,000 unit Guaifenesin/Dextromethorphan (Robitussin Dm) 5 ml PO Q4H PRN PRN Reason: Cough Last Admin: 06/24/16 00:49 Dose: 5 ml Heparin Sodium (Porcine) (Heparin) 5,000 units SC Q12 [facility] Last Admin: 06/24/16 10:16 Dose: 5,000 units Moxifloxacin HCl (Avelox Iv 400mg/250ml Ns) 250 mls @ 167 mls/hr IVPB Q24H [facility] Last Admin: 06/23/16 14:13 Dose: 167 mls/hr Levothyroxine Sodium (Synthroid) 25 mcg PO DAILY@0630 [facility] Last Admin: 06/24/16 06:30 Dose: 25 mcg Pantoprazole Sodium (Protonix Ec Tab) 40 mg PO DAILY [facility] Last Admin: 06/24/16 10:15 Dose: 40 mg Saccharomyces Boulardii (Florastor) 250 mg PO BID [facility] Last Admin: 06/24/16 10:15 Dose: 250 mg Sevelamer Carbonate (Renvela) 1,600 mg PO TIDCC [facility] Last Admin: 06/24/16 08:16 Dose: 1,600 mg Vitamin B Complex/Vit C/Folic Acid (Nephro-Dana) 1 tab PO DAILY [facility] Last Admin: 06/24/16 10:15 Dose: 1 tab - Labs Labs: 06/23/16 06:11 06/23/16 06:11 PT 11.0 SECONDS (9.7-12.2) 06/21/16 11:49 INR 1.0 06/21/16 11:49 APTT 31 SECONDS (21-34) 06/21/16 11:49 - Constitutional Appears: Non-toxic, No Acute Distress - Head Exam Head Exam: ATRAUMATIC, NORMAL INSPECTION, NORMOCEPHALIC - Eye Exam Eye Exam: EOMI, Normal appearance, PERRL - ENT Exam ENT Exam: Mucous Membranes Moist - Neck Exam Neck Exam: Full ROM, Normal Inspection - Respiratory Exam Respiratory Exam: Wheezes - Cardiovascular Exam Cardiovascular Exam: +S1, +S2, Murmur Additional comments: blowing murmur - GI/Abdominal Exam GI & Abdominal Exam: Soft, Normal Bowel Sounds. absent: Firm, Tenderness - Extremities Exam Extremities Exam: Normal Inspection. absent: Pedal Edema, Tenderness - Neurological Exam Neurological Exam: Alert, Awake, Oriented x3 - Psychiatric Exam Psychiatric exam: Normal Affect, Normal Mood - Skin Skin Exam: Intact, Normal Color, Warm Assessment and Plan - Assessment and Plan (Free Text) Assessment: 1. Healthcare Acquired Pneumonia Afebrile WBC 4.4 Clinically improved CXR: Mild L basilar atelectasis or infiltrate. Discontinued Zithromax IVPB and Rocephin IVPB. Continue Moxifloxacin 400 mg IVPB q24h. Continue Robitussin DM and Duoneb RQ6H [facility] Influenza A/B - negative Blood culture - no growth (preliminary) Monitor CBC and vitals 2. Leukopenia likely secondary to ESRD on hemodialysis - immunocompromised WBC 4.4 HIV - negative 3. Anemia of Chronic Disease Hgb 11.1 Iron 65, TIBC 195, % Saturation 33, Ferritin 1680 Started on Procrit 3,000 U IV MWF Nephro-Dana po daily Fecal Occult Blood positive. Will refer patient to [facility] clinic once discharged. Monitor 4. 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 HD schedule on TTS Renvela 1600 mg po TIDCC Pro-BNP 57341. Follow-up Echocardiogram Nephrology, Dr. Culp, consulted. 5. Hypertension Blood pressure 140/58 Increased Norvasc to 10 mg po daily Monitor pressure 6. Hypothyroidism Continue Levothyroxine 25 mcg po daily TSH 0.77 7. Prophylaxis Florastor 250 mg po BID Heparin 5000 U SC Q12 [facility] Protonix Dispo Patient had increased wheezing today. Possibly will discharge tomorrow. <Vimal Parsons - Last Filed: 07/27/16 12:51> Objective - Vital Signs/Intake and Output Vital Signs (last 24 hours): Temp Pulse Resp BP Pulse Ox 98 F 87 20 119/65 96 06/26/16 16:00 06/26/16 16:00 06/26/16 16:00 06/26/16 16:00 06/28/16 09:40 - Labs Labs: 06/25/16 07:03 06/25/16 07:03 PT 11.0 SECONDS (9.7-12.2) 06/21/16 11:49 INR 1.0 06/21/16 11:49 APTT 31 SECONDS (21-34) 06/21/16 11:49 Attending/Attestation - Attestation I have personally seen and examined this patient.: Yes I have fully participated in the care of the patient.: Yes I have reviewed all pertinent clinical information, including history, physical exam and plan: Yes Notes (Text): Patient seen and examined with the resident. Agree with the resident's evaluation, assessment and plan. 1. Healthcare Acquired Pneumonia Afebrile WBC 4.4 Clinically improved CXR: Mild L basilar atelectasis or infiltrate. Discontinued Zithromax IVPB and Rocephin IVPB. Continue Moxifloxacin 400 mg IVPB q24h. Continue Robitussin DM and Duoneb RQ6H [facility] Influenza A/B - negative Blood culture - no growth (preliminary) Monitor CBC and vitals 2. Leukopenia likely secondary to ESRD on hemodialysis - immunocompromised WBC 4.4 HIV - negative 3. Anemia of Chronic Disease Hgb 11.1 Iron 65, TIBC 195, % Saturation 33, Ferritin 1680 Started on Procrit 3,000 U IV MWF Nephro-Dana po daily Fecal Occult Blood positive. Will refer patient to [facility] once discharged. Monitor
[2016-06-24 11:22] LABS: EOS # 0.2 K/uL (0.0-0.7); EOS % 3.8 % (0.0-4.0); HEMATOCRIT 34.7 % (34.0-47.0); LYMPH % 22.3 % (20.0-40.0); MEAN CELL VOLUME 94.4 fL (81.0-99.0); MEAN CORPUSCULAR HEMOGLOBIN 30.1 pg (27.0-31.0); MEAN CORPUSCULAR HGB CONC 31.9 g/dL (33.0-37.0); MEAN PLATELET VOLUME 9.3 fL (7.2-11.7); MONO # 0.5 K/uL (0.0-0.8); MONO % 10.6 % (0.0-10.0); RED CELL DISTRIBUTION WIDTH 15.7 % (11.5-14.5); WHITE BLOOD COUNT 4.4 K/uL (4.8-10.8)
[2016-06-24 11:33] LABS: POTASSIUM 3.8 mmol/L (3.6-5.2)
[2016-06-24 11:35] LABS: ALB/GLOB RATIO 1.1 (1.0-2.1); BILIRUBIN,TOTAL 0.7 mg/dL (0.2-1.3); TOTAL PROTEIN 7.9 g/dL (6.3-8.3)
[2016-06-24 11:36] LABS: CALCIUM 8.7 mg/dl (8.6-10.4); MAGNESIUM 1.9 mg/dL (1.6-2.3)
[2016-06-24] MEDS: Moxifloxacin IV 400mg/250ml NS 250 ML IVPB SCH (14:05)
--- NOTE | 2016-06-24 16:18 | CP.PCM.PN ---
Subjective - Date & Time of Evaluation Date of Evaluation: 06/24/16 Time of Evaluation: 03:20 - Subjective Subjective: Pt feels better today Appears more comfortable.Less facial swelling Objective - Vital Signs/Intake and Output Vital Signs (last 24 hours): Temp Pulse Resp BP Pulse Ox 98.0 F 89 18 140/58 L 100 06/24/16 09:13 06/24/16 09:13 06/24/16 09:13 06/24/16 09:13 06/24/16 09:13 Intake and Output: 06/24/16 06/24/16 06:59 18:59 Intake Total 300 400 Balance 300 400 - Medications Medications: Current Medications Albuterol/Ipratropium (Duoneb 3 Mg/0.5 Mg (3 Ml) Ud) 3 ml INH RQ6 [facility] Last Admin: 06/24/16 13:25 Dose: 3 ml Amlodipine Besylate (Norvasc) 10 mg PO DAILY [facility] Last Admin: 06/24/16 10:16 Dose: 10 mg Epoetin Len (Procrit) 3,000 unit IV MWF [facility] Last Admin: 06/24/16 09:30 Dose: Not Given Guaifenesin/Dextromethorphan (Robitussin Dm) 5 ml PO Q4H PRN PRN Reason: Cough Last Admin: 06/24/16 00:49 Dose: 5 ml Heparin Sodium (Porcine) (Heparin) 5,000 units SC Q12 [facility] Last Admin: 06/24/16 10:16 Dose: 5,000 units Moxifloxacin HCl (Avelox Iv 400mg/250ml Ns) 250 mls @ 167 mls/hr IVPB Q24H [facility] Last Admin: 06/24/16 14:05 Dose: 167 mls/hr Levothyroxine Sodium (Synthroid) 25 mcg PO DAILY@0630 [facility] Last Admin: 06/24/16 06:30 Dose: 25 mcg Pantoprazole Sodium (Protonix Ec Tab) 40 mg PO DAILY [facility] Last Admin: 06/24/16 10:15 Dose: 40 mg Saccharomyces Boulardii (Florastor) 250 mg PO BID [facility] Last Admin: 06/24/16 10:15 Dose: 250 mg Sevelamer Carbonate (Renvela) 1,600 mg PO TIDCC [facility] Last Admin: 06/24/16 12:59 Dose: 1,600 mg Vitamin B Complex/Vit C/Folic Acid (Nephro-Dana) 1 tab PO DAILY [facility] Last Admin: 06/24/16 10:15 Dose: 1 tab - Labs Labs: 06/24/16 11:16 06/24/16 11:16 PT 11.0 SECONDS (9.7-12.2) 06/21/16 11:49 INR 1.0 06/21/16 11:49 APTT 31 SECONDS (21-34) 06/21/16 11:49 - Respiratory Exam Additional comments: Bibasilar crackles. No wheezes - Cardiovascular Exam Cardiovascular Exam: REGULAR RHYTHM - GI/Abdominal Exam GI & Abdominal Exam: Soft - Extremities Exam Additional comments: No pedal edema Assessment and Plan - Assessment and Plan (Free Text) Assessment: ESRD Volume overload Pneumonia Plan: Volume overload is improving HD per scedule Abx per ID
--- NOTE | 2016-06-24 17:44 | CP.PCM.PN ---
Subjective - Date & Time of Evaluation Date of Evaluation: 06/24/16 Time of Evaluation: 07:00 - Subjective Subjective: improved extra HD appears to be helping Objective - Vital Signs/Intake and Output Vital Signs (last 24 hours): Temp Pulse Resp BP Pulse Ox 98 F 78 20 127/61 100 06/24/16 16:00 06/24/16 16:00 06/24/16 16:00 06/24/16 16:00 06/24/16 16:00 Intake and Output: 06/24/16 06/24/16 06:59 18:59 Intake Total 300 400 Balance 300 400 - Medications Medications: Current Medications Albuterol/Ipratropium (Duoneb 3 Mg/0.5 Mg (3 Ml) Ud) 3 ml INH RQ6 [facility] Last Admin: 06/24/16 13:25 Dose: 3 ml Amlodipine Besylate (Norvasc) 10 mg PO DAILY [facility] Last Admin: 06/24/16 10:16 Dose: 10 mg Epoetin Len (Procrit) 3,000 unit IV MWF [facility] Last Admin: 06/24/16 09:30 Dose: Not Given Guaifenesin/Dextromethorphan (Robitussin Dm) 5 ml PO Q4H PRN PRN Reason: Cough Last Admin: 06/24/16 00:49 Dose: 5 ml Heparin Sodium (Porcine) (Heparin) 5,000 units SC Q12 [facility] Last Admin: 06/24/16 10:16 Dose: 5,000 units Moxifloxacin HCl (Avelox Iv 400mg/250ml Ns) 250 mls @ 167 mls/hr IVPB Q24H [facility] Last Admin: 06/24/16 14:05 Dose: 167 mls/hr Levothyroxine Sodium (Synthroid) 25 mcg PO DAILY@0630 [facility] Last Admin: 06/24/16 06:30 Dose: 25 mcg Pantoprazole Sodium (Protonix Ec Tab) 40 mg PO DAILY [facility] Last Admin: 06/24/16 10:15 Dose: 40 mg Saccharomyces Boulardii (Florastor) 250 mg PO BID [facility] Last Admin: 06/24/16 17:29 Dose: 250 mg Sevelamer Carbonate (Renvela) 1,600 mg PO TIDCC [facility] Last Admin: 06/24/16 17:29 Dose: 1,600 mg Vitamin B Complex/Vit C/Folic Acid (Nephro-Dana) 1 tab PO DAILY [facility] Last Admin: 06/24/16 10:15 Dose: 1 tab - Labs Labs: 06/24/16 11:16 06/24/16 11:16 PT 11.0 SECONDS (9.7-12.2) 06/21/16 11:49 INR 1.0 06/21/16 11:49 APTT 31 SECONDS (21-34) 06/21/16 11:49 - Constitutional Appears: Non-toxic, Cachectic, Chronically Ill - Head Exam Head Exam: NORMOCEPHALIC - Eye Exam Eye Exam: PERRL. absent: Scleral icterus - ENT Exam ENT Exam: Mucous Membranes Dry - Neck Exam Neck Exam: absent: Lymphadenopathy - Respiratory Exam Respiratory Exam: Decreased Breath Sounds, Rhonchi - Cardiovascular Exam Cardiovascular Exam: REGULAR RHYTHM, +S1, +S2 - GI/Abdominal Exam GI & Abdominal Exam: Distended, Soft. absent: Tenderness - Rectal Exam Rectal Exam: Deferred Assessment and Plan (1) Atrial fibrillation Status: Acute (2) Fever Status: Acute (3) Pneumonia Status: Acute (4) Productive cough Status: Acute (5) End stage kidney disease Status: Chronic - Assessment and Plan (Free Text) Assessment: blood c/s neg- hold vanco cont levofloxacin
[2016-06-25] MEDS: Albuterol-Ipratrop 3 mg / 0.5 (3 ml) UD INH SCH ×4 (01:27→20:09)
[2016-06-25] MEDS: Levothyroxine 25 MCG TAB PO SCH (06:08)
[2016-06-25 07:26] LABS: BASO % 0.7 % (0.0-2.0); EOS # 0.3 K/uL (0.0-0.7); EOS % 5.7 % (0.0-4.0); HEMATOCRIT 35.6 % (34.0-47.0); LYMPH % 38.5 % (20.0-40.0); MEAN CELL VOLUME 95.2 fL (81.0-99.0); MEAN CORPUSCULAR HEMOGLOBIN 30.6 pg (27.0-31.0); MEAN CORPUSCULAR HGB CONC 32.1 g/dL (33.0-37.0); MEAN PLATELET VOLUME 9.4 fL (7.2-11.7); MONO # 0.5 K/uL (0.0-0.8); MONO % 10.4 % (0.0-10.0); RED CELL DISTRIBUTION WIDTH 15.5 % (11.5-14.5); WHITE BLOOD COUNT 5.1 K/uL (4.8-10.8)
[2016-06-25 07:39] LABS: POTASSIUM 3.9 mmol/L (3.6-5.2)
[2016-06-25 07:41] LABS: ALB/GLOB RATIO 1.2 (1.0-2.1); BILIRUBIN,TOTAL 0.9 mg/dL (0.2-1.3); TOTAL PROTEIN 8.1 g/dL (6.3-8.3)
[2016-06-25 08:04] LABS: MAGNESIUM 2.1 mg/dL (1.6-2.3)
[2016-06-25] MEDS: Saccharomyces Boulardi 250 mg Cap PO SCH ×2 (09:19→18:20)
[2016-06-25] MEDS: Multivitamin Vitamin B Complex (Nephro-Vite) Tab PO SCH (09:19)
[2016-06-25] MEDS: Pantoprazole 40 mg EC Tab PO SCH (09:19)
--- NOTE | 2016-06-25 12:21 | CP.PCM.PN ---
Subjective - Date & Time of Evaluation Date of Evaluation: 06/25/16 Time of Evaluation: 11:30 - Subjective Subjective: Feels much better today Objective - Vital Signs/Intake and Output Vital Signs (last 24 hours): Temp Pulse Resp BP Pulse Ox 98.3 F 78 20 134/64 100 06/24/16 23:05 06/25/16 07:30 06/24/16 23:05 06/24/16 23:05 06/24/16 23:05 - Medications Medications: Current Medications Albuterol/Ipratropium (Duoneb 3 Mg/0.5 Mg (3 Ml) Ud) 3 ml INH RQ6 [facility] Last Admin: 06/25/16 07:40 Dose: 3 ml Amlodipine Besylate (Norvasc) 10 mg PO DAILY [facility] Last Admin: 06/25/16 09:19 Dose: 10 mg Epoetin Len (Procrit) 3,000 unit IV MWF [facility] Last Admin: 06/24/16 09:30 Dose: Not Given Guaifenesin/Dextromethorphan (Robitussin Dm) 5 ml PO Q4H PRN PRN Reason: Cough Last Admin: 06/24/16 23:31 Dose: 5 ml Moxifloxacin HCl (Avelox Iv 400mg/250ml Ns) 250 mls @ 167 mls/hr IVPB Q24H [facility] Last Admin: 06/24/16 14:05 Dose: 167 mls/hr Levothyroxine Sodium (Synthroid) 25 mcg PO DAILY@0630 [facility] Last Admin: 06/25/16 06:08 Dose: 25 mcg Pantoprazole Sodium (Protonix Ec Tab) 40 mg PO DAILY [facility] Last Admin: 06/25/16 09:19 Dose: 40 mg Saccharomyces Boulardii (Florastor) 250 mg PO BID [facility] Last Admin: 06/25/16 09:19 Dose: 250 mg Sevelamer Carbonate (Renvela) 1,600 mg PO TIDCC [facility] Last Admin: 06/25/16 09:19 Dose: 1,600 mg Vitamin B Complex/Vit C/Folic Acid (Nephro-Dana) 1 tab PO DAILY [facility] Last Admin: 06/25/16 09:19 Dose: 1 tab - Labs Labs: 06/25/16 07:03 06/25/16 07:03 PT 11.0 SECONDS (9.7-12.2) 06/21/16 11:49 INR 1.0 06/21/16 11:49 APTT 31 SECONDS (21-34) 06/21/16 11:49 - Respiratory Exam Additional comments: Lungs clear - Cardiovascular Exam Cardiovascular Exam: REGULAR RHYTHM - Extremities Exam Additional comments: No edema Assessment and Plan - Assessment and Plan (Free Text) Assessment: ESRD, volume overload is improving Bronchitis/Pneumonia Plan: Continue HD per schedule Labs stable
[2016-06-25] MEDS ORDERED: Epoetin Alfa Dialysis 3000 UNIT/ML Inj IV SCH (16:00)
[2016-06-25] MEDS: Moxifloxacin IV 400mg/250ml NS 250 ML IVPB SCH (18:25)
--- NOTE | 2016-06-25 19:51 | CP.PCM.DIS ---
Addendum entered and electronically signed by Altagracia Loredo DO 06/26/16 10: 58: Patient was not discharged to [facility] due to confusion regarding length of antibiotics prescribed. Patient will require 6 more days of Avelox IVPB. Waiting for pre-authorization. Original Note: <Altagracia Loredo - Last Filed: 06/25/16 19:49> Provider - Provider Date of Admission: 06/21/16 14:21 Attending physician: Vimal Parsons MD Primary care physician: Dr. Nesbitt - primary care physician Consults: Pathology Technician: Dr. Culp Infectious Disease: Dr. Zambrano Time Spent in preparation of Discharge (in minutes): 31 Hospital Course - Lab Results Lab Results: Most Recent Lab Values WBC 5.1 K/uL (4.8-10.8) 06/25/16 07:03 RBC 3.74 Mil/uL (3.80-5.20) L 06/25/16 07:03 Hgb 11.4 g/dL (11.0-16.0) 06/25/16 07:03 Hct 35.6 % (34.0-47.0) 06/25/16 07:03 MCV 95.2 fL (81.0-99.0) 06/25/16 07:03 MCH 30.6 pg (27.0-31.0) 06/25/16 07:03 MCHC 32.1 g/dL (33.0-37.0) L 06/25/16 07:03 RDW 15.5 % (11.5-14.5) H 06/25/16 07:03 Plt Count 144 K/uL (130-400) 06/25/16 07:03 MPV 9.4 fL (7.2-11.7) 06/25/16 07:03 Neut % (Auto) 44.7 % (50.0-75.0) L 06/25/16 07:03 Lymph % (Auto) 38.5 % (20.0-40.0) 06/25/16 07:03 Haskell % (Auto) 10.4 % (0.0-10.0) H 06/25/16 07:03 Eos % (Auto) 5.7 % (0.0-4.0) H 06/25/16 07:03 Baso % (Auto) 0.7 % (0.0-2.0) 06/25/16 07:03 Neut # 2.3 K/uL (1.8-7.0) 06/25/16 07:03 Lymph # 2.0 K/uL (1.0-4.3) 06/25/16 07:03 Haskell # 0.5 K/uL (0.0-0.8) 06/25/16 07:03 Eos # 0.3 K/uL (0.0-0.7) 06/25/16 07:03 Baso # 0.0 K/uL (0.0-0.2) 06/25/16 07:03 Retic Count 0.4 % (0.5-1.5) L 06/22/16 07:08 PT 11.0 SECONDS (9.7-12.2) 06/21/16 11:49 INR 1.0 06/21/16 11:49 APTT 31 SECONDS (21-34) 06/21/16 11:49 VBG pH 7.44 (7.32-7.43) H 06/21/16 12:00 VBG pCO2 61 mmHg (40-60) H 06/21/16 12:00 VBG Total CO2 43.3 mmol/L (22-28) H 06/21/16 12:00 VBG O2 Sat (Calc) 57.3 % (40-65) 06/21/16 12:00 VBG Base Excess 14.3 mmol/L (0.0-2.0) H 06/21/16 12:00 VBG Potassium 4.8 mmol/L (3.6-5.2) 06/21/16 12:00 Sodium 143.0 mmol/l (132-148) 06/21/16 12:00 Chloride 104.0 mmol/L (98-107) 06/21/16 12:00 Glucose 158 mg/dl (65-105) H 06/21/16 12:00 Lactate 1.7 mmol/L (0.7-2.1) 06/21/16 12:00 Sodium 140 mmol/L (132-148) 06/25/16 07:03 Potassium 3.9 mmol/L (3.6-5.2) 06/25/16 07:03 Chloride 93 mmol/L (98-107) L 06/25/16 07:03 Carbon Dioxide 30 mmol/L (22-30) 06/25/16 07:03 Anion Gap 21 (10-20) H 06/25/16 07:03 BUN 26 mg/dL (7-17) H 06/25/16 07:03 Creatinine 5.8 MG/DL (0.7-1.2) H 06/25/16 07:03 Est GFR ( Amer) 9 06/25/16 07:03 Est GFR (Non-Af Amer) 7 06/25/16 07:03 POC Glucose (mg/dL) 146 mg/dL (65-110) H 06/25/16 12:02 Random Glucose 120 mg/dL (65-105) H 06/25/16 07:03 Lactic Acid 2.0 mmol/L (0.7-2.1) 06/21/16 16:28 Calcium 9.0 mg/dl (8.6-10.4) 06/25/16 07:03 Magnesium 2.1 mg/dL (1.6-2.3) 06/25/16 07:03 Iron 65 ug/dL (37-170) 06/22/16 07:08 TIBC 195 ug/dL (250-450) L 06/22/16 07:08 % Saturation 31 (20-55) 06/22/16 07:08 Ferritin 1680.0 ng/mL 06/22/16 07:08 Total Bilirubin 0.9 mg/dL (0.2-1.3) 06/25/16 07:03 AST 44 U/L (14-36) H 06/25/16 07:03 ALT 56 U/L (9-52) H 06/25/16 07:03 Alkaline Phosphatase 76 U/L (38-126) 06/25/16 07:03 Total Creatine Kinase 29 U/L (30-135) L 06/21/16 11:49 CK-MB (Mass) 0.33 ng/mL (0.0-3.38) 06/21/16 11:49 Troponin I 0.0330 ng/mL (0.00-0.120) 06/21/16 11:49 NT-Pro-B Natriuret Pep 72346 pg/mL (0-900) H 06/21/16 11:49 Total Protein 8.1 g/dL (6.3-8.3) 06/25/16 07:03 Albumin 4.5 g/dL (3.5-5.0) 06/25/16 07:03 Globulin 3.7 gm/dL (2.2-3.9) 06/25/16 07:03 Albumin/Globulin Ratio 1.2 (1.0-2.1) 06/25/16 07:03 Vitamin B12 662 pg/mL (239-931) 06/22/16 07:08 Folate > 20.0 ng/mL 06/22/16 07:08 Procalcitonin 0.97 NG/ML (0.19-0.49) H 06/22/16 11:22 TSH 3rd Generation 0.77 mIU/L (0.46-4.68) 06/22/16 07:08 Venous Blood Potassium 4.8 mmol/L (3.6-5.2) 06/21/16 12:00 Stool Occult Blood Positive (NEGATIVE) H 06/22/16 14:02 Hepatitis C Antibody Negative (NEGATIVE) 06/25/16 07:03 HIV 1&2 Antibody Screen Negative (NEGATIVE) 06/22/16 07:08 Influenza Typ A,B (EIA) Negative for flu a/b (NEGATIVE) 06/22/16 Unknown - Hospital Course Hospital Course: On hospital admission: HPI: Patient is a 80 year old female with PMHx of HTN, ESRD on HD, and hypothyroidsm who presents to the ED for productive cough with green phlegm since Wednesday. Patient's last HD was on Wednesday and she is usually compliant with dialysis. Her daughter noticed that today she fatigued easily and became dyspneic when she walked 3 blocks. Denies fever, chills, chest pain, palpitations, dizziness, SOB, headache, nausea, vomiting, or abdominal pain. PMHx: as above Surg hx: denies Fam hx: Cancer - both parents (unknown types) Social hx: denies smoking, drinking, or drugs Allergies: NKDA PMD: Delicia On hospital course: During hospital course, the following procedures/imaging were done:Chest X-ray ( 06/21/16): Mild left basilar atelectasis or infiltrate. CardiomegalyEchocardiogram (06/21/16): Ejection fraction 40-45%. Left atrium moderately dilated. Moderate aortic regurgitation. Moderate mitral regurgitation. Moderate to severe tricuspid regurgitation. Right ventricular systolic pressure estimated 50-60 mmHg. Moderate-severe pulmonary hypertension. Small loculated posterior pericardial effusion. (1) Healthcare acquired pneumonia Mild left basilar atelectasis or infiltrate was seen on xray. Lactate was 1.7, likely ruling out sepsis. Patient was given one dose of Vancomycin 500mg IVPB and was put on Zithromax IVPB and Rocephin IVPB. Patient complained her cough and sputum production was worsening after one day. Duonebs and Robitussin were prescribed to relieve her wheezing and cough. Zithromax and Rocephin were discontinued, and Moxifloxacin 400mg IVPB was started. Blood cultures showed no growth after 4 days. Patient significantly improved by 06/25/16. (2) Leukopenia Patient's initial white blood cell count was 2.9 and likely secondary to ESRD on HD. HIV test was negative. (3) Anemia of chronic disease On arrival, hemoglobin was 10.0, iron 65, TIBC 195. % saturation 33, ferritin 1680. Patient was started on Procrit 3,000 U IV MWF, and given nephro-vipul po daily. Patient was found to have fecal occult blood test on 06/23/16 and was referred to [facility] clinic as outpatient. Hemoglobin increased to 11.4 by 06/25/16. (4) ESRD on HD Hemodialysis scheduled for Wednesday, , Wednesday, however it was determined that patient needed extra dialysis on Thursday 06/22, as potassium was 5.3 and BUN/creatinine was 47/6.9. Patient also given Renvela 1600mg [place] [address] was noted on first day of admission. Echocardiogram showed ejection fraction of 40-45% (5) Hypertension Patient resumed home medication Norvasc 5mg po daily. Blood pressure was found to still be elevated so dose was increased to 10mg. (6) Hypothyroidism Patient resumed home medicatoin Levothyroxine 25mcg po daily. TSH was stable at 0.77. (7) Prophylactic measures Florastor 250mg po BID, Heparin 500 U SC Q12H, SCDs, ProtonixDuring the hospital course, the following specialists were consulted: Dr. Castro, Nephrology (06/22/16): Start dialysis, monitor BP, reevaluate labs for extra dialysisDr. [place], Infectious Disease (06/23/16): Suspect community- acquired pneumonia. Started Avelox. Will monitor. Discharge instructions were given as follows: Patient medically stable for transfer to subacute rehab. Patient to continue receiving hemodialysis TTS Patient to continue taking Avelox IV 100mg/250ml NS IVPB Q24H for 6 more days. Patient to continue Florastor 250 mg po BID for 6 days. Patient instructed to return to emergency room if symptoms recur. Patient understands and agrees. - Date & Time of H&P Date of H&P: 06/21/16 Time of H&P: 14:59 Discharge Exam - Head Exam Head Exam: ATRAUMATIC, NORMAL INSPECTION, NORMOCEPHALIC - Eye Exam Eye Exam: EOMI, Normal appearance Pupil Exam: PERRL - Respiratory Exam Respiratory Exam: Clear to PA & Lateral, NORMAL BREATHING PATTERN, UNREMARKABLE - Cardiovascular Exam Cardiovascular Exam: +S1, +S2. absent: Tachycardia - GI/Abdominal Exam GI & Abdominal Exam: Normal Bowel Sounds, Unremarkable. absent: Distended, Firm - Extremities Exam Extremities exam: full ROM - Neurological Exam Neurological exam: Alert, Oriented x3 - Psychiatric Exam Psychiatric exam: Normal Affect, Normal Mood - Skin Skin Exam: Dry, Intact, Warm Discharge Plan - Discharge Medications Prescriptions: amLODIPine [Norvasc] 10 mg PO DAILY #30 tab Pantoprazole [Protonix EC Tab] 40 mg PO DAILY #30 ect Sevelamer Carbonate [Renvela] 1,600 mg PO TIDCC #1 tab - Follow Up Plan Condition: GOOD Disposition: REHAB FACILITY/REHAB UNIT Instructions: Heart Failure (DC), Renal Failure Diet (DC), Dialysis Diet (DC), Sepsis (GEN), Hypertension (DC), Pneumonia (DC), End Stage Kidney Disease (DC) Additional Instructions: Patient medically stable for transfer to subacute rehab. Patient to continue receiving hemodialysis TTS Patient to continue taking Avelox IV 100mg/250ml NS IVPB Q24H for 6 more days. Patient to continue Florastor 250 mg po BID for 6 days. Patient instructed to return to emergency room if symptoms recur. Patient understands and agrees. Referrals: Flavio Nesbitt MD [Staff Provider] - <Laith Falk - Last Filed: 06/27/16 12:14> Provider - Provider Date of Admission: 06/21/16 14:21 Attending physician: Vimal Parsons MD Hospital Course - Lab Results Lab Results: Micro Results 06/25/16 16:06 Sputum Gram Stain - Final Most Recent Lab Values WBC 5.1 K/uL (4.8-10.8) 06/25/16 07:03 RBC 3.74 Mil/uL (3.80-5.20) L 06/25/16 07:03 Hgb 11.4 g/dL (11.0-16.0) 06/25/16 07:03 Hct 35.6 % (34.0-47.0) 06/25/16 07:03 MCV 95.2 fL (81.0-99.0) 06/25/16 07:03 MCH 30.6 pg (27.0-31.0) 06/25/16 07:03 MCHC 32.1 g/dL (33.0-37.0) L 06/25/16 07:03 RDW 15.5 % (11.5-14.5) H 06/25/16 07:03 Plt Count 144 K/uL (130-400) 06/25/16 07:03 MPV 9.4 fL (7.2-11.7) 06/25/16 07:03 Neut % (Auto) 44.7 % (50.0-75.0) L 06/25/16 07:03 Lymph % (Auto) 38.5 % (20.0-40.0) 06/25/16 07:03 Haskell % (Auto) 10.4 % (0.0-10.0) H 06/25/16 07:03 Eos % (Auto) 5.7 % (0.0-4.0) H 06/25/16 07:03 Baso % (Auto) 0.7 % (0.0-2.0) 06/25/16 07:03 Neut # 2.3 K/uL (1.8-7.0) 06/25/16 07:03 Lymph # 2.0 K/uL (1.0-4.3) 06/25/16 07:03 Haskell # 0.5 K/uL (0.0-0.8) 06/25/16 07:03 Eos # 0.3 K/uL (0.0-0.7) 06/25/16 07:03 Baso # 0.0 K/uL (0.0-0.2) 06/25/16 07:03 Retic Count 0.4 % (0.5-1.5) L 06/22/16 07:08 PT 11.0 SECONDS (9.7-12.2) 06/21/16 11:49 INR 1.0 06/21/16 11:49 APTT 31 SECONDS (21-34) 06/21/16 11:49 VBG pH 7.44 (7.32-7.43) H 06/21/16 12:00 VBG pCO2 61 mmHg (40-60) H 06/21/16 12:00 VBG Total CO2 43.3 mmol/L (22-28) H 06/21/16 12:00 VBG O2 Sat (Calc) 57.3 % (40-65) 06/21/16 12:00 VBG Base Excess 14.3 mmol/L (0.0-2.0) H 06/21/16 12:00 VBG Potassium 4.8 mmol/L (3.6-5.2) 06/21/16 12:00 Sodium 143.0 mmol/l (132-148) 06/21/16 12:00 Chloride 104.0 mmol/L (98-107) 06/21/16 12:00 Glucose 158 mg/dl (65-105) H 06/21/16 12:00 Lactate 1.7 mmol/L (0.7-2.1) 06/21/16 12:00 Sodium 140 mmol/L (132-148) 06/25/16 07:03 Potassium 3.9 mmol/L (3.6-5.2) 06/25/16 07:03 Chloride 93 mmol/L (98-107) L 06/25/16 07:03 Carbon Dioxide 30 mmol/L (22-30) 06/25/16 07:03 Anion Gap 21 (10-20) H 06/25/16 07:03 BUN 26 mg/dL (7-17) H 06/25/16 07:03 Creatinine 5.8 MG/DL (0.7-1.2) H 06/25/16 07:03 Est GFR ( Amer) 9 06/25/16 07:03 Est GFR (Non-Af Amer) 7 06/25/16 07:03 POC Glucose (mg/dL) 180 mg/dL (65-110) H 06/26/16 11:18 Random Glucose 120 mg/dL (65-105) H 06/25/16 07:03 Lactic Acid 2.0 mmol/L (0.7-2.1) 06/21/16 16:28 Calcium 9.0 mg/dl (8.6-10.4) 06/25/16 07:03 Magnesium 2.1 mg/dL (1.6-2.3) 06/25/16 07:03 Iron 65 ug/dL (37-170) 06/22/16 07:08 TIBC 195 ug/dL (250-450) L 06/22/16 07:08 % Saturation 31 (20-55) 06/22/16 07:08 Ferritin 1680.0 ng/mL 06/22/16 07:08 Total Bilirubin 0.9 mg/dL (0.2-1.3) 06/25/16 07:03 AST 44 U/L (14-36) H 06/25/16 07:03 ALT 56 U/L (9-52) H 06/25/16 07:03 Alkaline Phosphatase 76 U/L (38-126) 06/25/16 07:03 Total Creatine Kinase 29 U/L (30-135) L 06/21/16 11:49 CK-MB (Mass) 0.33 ng/mL (0.0-3.38) 06/21/16 11:49 Troponin I 0.0330 ng/mL (0.00-0.120) 06/21/16 11:49 NT-Pro-B Natriuret Pep 43024 pg/mL (0-900) H 06/21/16 11:49 Total Protein 8.1 g/dL (6.3-8.3) 06/25/16 07:03 Albumin 4.5 g/dL (3.5-5.0) 06/25/16 07:03 Globulin 3.7 gm/dL (2.2-3.9) 06/25/16 07:03 Albumin/Globulin Ratio 1.2 (1.0-2.1) 06/25/16 07:03 Vitamin B12 662 pg/mL (239-931) 06/22/16 07:08 Folate > 20.0 ng/mL 06/22/16 07:08 Procalcitonin 0.97 NG/ML (0.19-0.49) H 06/22/16 11:22 TSH 3rd Generation 0.77 mIU/L (0.46-4.68) 06/22/16 07:08 Venous Blood Potassium 4.8 mmol/L (3.6-5.2) 06/21/16 12:00 Stool Occult Blood Positive (NEGATIVE) H 06/22/16 14:02 Hepatitis C Antibody Negative (NEGATIVE) 06/25/16 07:03 HIV 1&2 Antibody Screen Negative (NEGATIVE) 06/22/16 07:08 Influenza Typ A,B (EIA) Negative for flu a/b (NEGATIVE) 06/22/16 Unknown Attending/Attestation - Attestation I have personally seen and examined this patient.: Yes I have fully participated in the care of the patient.: Yes I have reviewed all pertinent clinical information, including history, physical exam and plan: Yes Notes (Text): 06/27/16 12:14 patient was seen and examined at bedside with the resident Patient appears comfortable. The cough is improving. Patient is cleared for discharge to subacute rehabilitation center. I agree with the above discharge note by the resident <Vimal Parsons - Last Filed: 07/29/16 15:04> Provider - Provider Date of Admission: 06/21/16 14:21 Attending physician: Vimal Parsons MD Hospital Course - Lab Results Lab Results: Micro Results 06/25/16 16:06 Sputum Gram Stain - Final 06/25/16 16:06 Sputum Sputum Culture - Final Staphylococcus Aureus 06/25/16 15:49 Urine Urine Culture - Final No Growth (<1,000 CFU/ML) Most Recent Lab Values WBC 5.1 K/uL (4.8-10.8) 06/25/16 07:03 RBC 3.74 Mil/uL (3.80-5.20) L 06/25/16 07:03 Hgb 11.4 g/dL (11.0-16.0) 06/25/16 07:03 Hct 35.6 % (34.0-47.0) 06/25/16 07:03 MCV 95.2 fL (81.0-99.0) 06/25/16 07:03 MCH 30.6 pg (27.0-31.0) 06/25/16 07:03 MCHC 32.1 g/dL (33.0-37.0) L 06/25/16 07:03 RDW 15.5 % (11.5-14.5) H 06/25/16 07:03 Plt Count 144 K/uL (130-400) 06/25/16 07:03 MPV 9.4 fL (7.2-11.7) 06/25/16 07:03 Neut % (Auto) 44.7 % (50.0-75.0) L 06/25/16 07:03 Lymph % (Auto) 38.5 % (20.0-40.0) 06/25/16 07:03 Haskell % (Auto) 10.4 % (0.0-10.0) H 06/25/16 07:03 Eos % (Auto) 5.7 % (0.0-4.0) H 06/25/16 07:03 Baso % (Auto) 0.7 % (0.0-2.0) 06/25/16 07:03 Neut # 2.3 K/uL (1.8-7.0) 06/25/16 07:03 Lymph # 2.0 K/uL (1.0-4.3) 06/25/16 07:03 Haskell # 0.5 K/uL (0.0-0.8) 06/25/16 07:03 Eos # 0.3 K/uL (0.0-0.7) 06/25/16 07:03 Baso # 0.0 K/uL (0.0-0.2) 06/25/16 07:03 Retic Count 0.4 % (0.5-1.5) L 06/22/16 07:08 PT 11.0 SECONDS (9.7-12.2) 06/21/16 11:49 INR 1.0 06/21/16 11:49 APTT 31 SECONDS (21-34) 06/21/16 11:49 VBG pH 7.44 (7.32-7.43) H 06/21/16 12:00 VBG pCO2 61 mmHg (40-60) H 06/21/16 12:00 VBG Total CO2 43.3 mmol/L (22-28) H 06/21/16 12:00 VBG O2 Sat (Calc) 57.3 % (40-65) 06/21/16 12:00 VBG Base Excess 14.3 mmol/L (0.0-2.0) H 06/21/16 12:00 VBG Potassium 4.8 mmol/L (3.6-5.2) 06/21/16 12:00 Sodium 143.0 mmol/l (132-148) 06/21/16 12:00 Chloride 104.0 mmol/L (98-107) 06/21/16 12:00 Glucose 158 mg/dl (65-105) H 06/21/16 12:00 Lactate 1.7 mmol/L (0.7-2.1) 06/21/16 12:00 Sodium 140 mmol/L (132-148) 06/25/16 07:03 Potassium 3.9 mmol/L (3.6-5.2) 06/25/16 07:03 Chloride 93 mmol/L (98-107) L 06/25/16 07:03 Carbon Dioxide 30 mmol/L (22-30) 06/25/16 07:03 Anion Gap 21 (10-20) H 06/25/16 07:03 BUN 26 mg/dL (7-17) H 06/25/16 07:03 Creatinine 5.8 MG/DL (0.7-1.2) H 06/25/16 07:03 Est GFR ( Amer) 9 06/25/16 07:03 Est GFR (Non-Af Amer) 7 06/25/16 07:03 POC Glucose (mg/dL) 180 mg/dL (65-110) H 06/26/16 11:18 Random Glucose 120 mg/dL (65-105) H 06/25/16 07:03 Lactic Acid 2.0 mmol/L (0.7-2.1) 06/21/16 16:28 Calcium 9.0 mg/dl (8.6-10.4) 06/25/16 07:03 Magnesium 2.1 mg/dL (1.6-2.3) 06/25/16 07:03 Iron 65 ug/dL (37-170) 06/22/16 07:08 TIBC 195 ug/dL (250-450) L 06/22/16 07:08 % Saturation 31 (20-55) 06/22/16 07:08 Ferritin 1680.0 ng/mL 06/22/16 07:08 Total Bilirubin 0.9 mg/dL (0.2-1.3) 06/25/16 07:03 AST 44 U/L (14-36) H 06/25/16 07:03 ALT 56 U/L (9-52) H 06/25/16 07:03 Alkaline Phosphatase 76 U/L (38-126) 06/25/16 07:03 Total Creatine Kinase 29 U/L (30-135) L 06/21/16 11:49 CK-MB (Mass) 0.33 ng/mL (0.0-3.38) 06/21/16 11:49 Troponin I 0.0330 ng/mL (0.00-0.120) 06/21/16 11:49 NT-Pro-B Natriuret Pep 47183 pg/mL (0-900) H 06/21/16 11:49 Total Protein 8.1 g/dL (6.3-8.3) 06/25/16 07:03 Albumin 4.5 g/dL (3.5-5.0) 06/25/16 07:03 Globulin 3.7 gm/dL (2.2-3.9) 06/25/16 07:03 Albumin/Globulin Ratio 1.2 (1.0-2.1) 06/25/16 07:03 Vitamin B12 662 pg/mL (239-931) 06/22/16 07:08 Folate > 20.0 ng/mL 06/22/16 07:08 Procalcitonin 0.97 NG/ML (0.19-0.49) H 06/22/16 11:22 TSH 3rd Generation 0.77 mIU/L (0.46-4.68) 06/22/16 07:08 Venous Blood Potassium 4.8 mmol/L (3.6-5.2) 06/21/16 12:00 Stool Occult Blood Positive (NEGATIVE) H 06/22/16 14:02 Hepatitis C Antibody Negative (NEGATIVE) 06/25/16 07:03 HIV 1&2 Antibody Screen Negative (NEGATIVE) 06/22/16 07:08 Influenza Typ A,B (EIA) Negative for flu a/b (NEGATIVE) 06/22/16 Unknown Attending/Attestation - Attestation I have personally seen and examined this patient.: Yes I have fully participated in the care of the patient.: Yes I have reviewed all pertinent clinical information, including history, physical exam and plan: Yes Notes (Text): Patient was not discharged to [facility] due to confusion regarding length of antibiotics prescribed. Patient will require 6 more days of Avelox IVPB. Waiting for pre-authorization.
[2016-06-26] MEDS: Albuterol-Ipratrop 3 mg / 0.5 (3 ml) UD INH SCH ×3 (01:12→13:41)
[2016-06-26] MEDS: Levothyroxine 25 MCG TAB PO SCH (06:04)
[2016-06-26] MEDS: Saccharomyces Boulardi 250 mg Cap PO SCH (09:26)
[2016-06-26] MEDS: Multivitamin Vitamin B Complex (Nephro-Vite) Tab PO SCH (09:27)
[2016-06-26] MEDS: Pantoprazole 40 mg EC Tab PO SCH (09:27)
[2016-06-26] MEDS ORDERED: Moxifloxacin IV 400mg/250ml NS 250 ML IVPB SCH (14:00)
--- NOTE | 2016-06-26 14:09 | CP.PCM.PN ---
Subjective - Date & Time of Evaluation Date of Evaluation: 06/26/16 Time of Evaluation: 14:06 - Subjective Subjective: she is OOB feels good no SOB Objective - Vital Signs/Intake and Output Vital Signs (last 24 hours): Temp Pulse Resp BP Pulse Ox 98.2 F 77 18 129/84 100 06/26/16 08:00 06/26/16 08:00 06/26/16 08:00 06/26/16 08:00 06/26/16 08:00 - Medications Medications: Current Medications Albuterol/Ipratropium (Duoneb 3 Mg/0.5 Mg (3 Ml) Ud) 3 ml INH RQ6 [facility] Last Admin: 06/26/16 13:41 Dose: 3 ml Amlodipine Besylate (Norvasc) 10 mg PO DAILY [facility] Last Admin: 06/26/16 09:26 Dose: 10 mg Epoetin Len (Procrit) 3,000 unit IV MWF [facility] Last Admin: 06/25/16 16:15 Dose: 3,000 unit Guaifenesin/Dextromethorphan (Robitussin Dm) 5 ml PO Q4H PRN PRN Reason: Cough Last Admin: 06/24/16 23:31 Dose: 5 ml Moxifloxacin HCl (Avelox Iv 400mg/250ml Ns) 250 mls @ 167 mls/hr IVPB Q24H [facility] Levothyroxine Sodium (Synthroid) 25 mcg PO DAILY@0630 [facility] Last Admin: 06/26/16 06:04 Dose: 25 mcg Pantoprazole Sodium (Protonix Ec Tab) 40 mg PO DAILY [facility] Last Admin: 06/26/16 09:27 Dose: 40 mg Saccharomyces Boulardii (Florastor) 250 mg PO BID [facility] Last Admin: 06/26/16 09:26 Dose: 250 mg Sevelamer Carbonate (Renvela) 1,600 mg PO TIDCC [facility] Last Admin: 06/26/16 12:00 Dose: 1,600 mg Vitamin B Complex/Vit C/Folic Acid (Nephro-Dana) 1 tab PO DAILY [facility] Last Admin: 06/26/16 09:27 Dose: 1 tab - Labs Labs: 06/25/16 07:03 06/25/16 07:03 PT 11.0 SECONDS (9.7-12.2) 04/16/17 11:49 INR 1.0 06/21/16 11:49 APTT 31 SECONDS (21-34) 06/21/16 11:49 - Constitutional Appears: No Acute Distress - ENT Exam ENT Exam: Mucous Membranes Moist - Neck Exam Neck Exam: absent: Lymphadenopathy - Respiratory Exam Respiratory Exam: NORMAL BREATHING PATTERN. absent: Chest Wall Tenderness, Rales - Cardiovascular Exam Cardiovascular Exam: REGULAR RHYTHM. absent: Rubs - GI/Abdominal Exam GI & Abdominal Exam: Normal Bowel Sounds - Extremities Exam Extremities Exam: absent: Calf Tenderness - Back Exam Back Exam: absent: CVA tenderness (L), CVA tenderness (R) - Neurological Exam Neurological Exam: Alert Assessment and Plan - Assessment and Plan (Free Text) Assessment: ESRD leaving today to sub acute unit HD tomorrow at [facility]
--- NOTE | 2016-06-26 16:13 | PCM.HF ---
Heart Failure Core Measure - Heart Failure Ejection Fraction: 40 % or Greater (lvef 42%) PEPE Inhibitor Prescribed: No Contraindication/Reason for not providing: ESRD Beta-Lluvia Prescribed: None Contraindication/Reason for not providing: NOT RX BY MD Angiotensin II Receptor Lluvia Prescribed: No Contraindication/Reason for not providing: ESRD AnticoagulationTherapy for Atrial Fibrillation/Atrialflutter: No Contraindication/Reason for not providing: NO AFIB Aldosterone Antagonist Prescribed: No Contraindication/Reason for not providing: LVEF >40% Hydralazine Nitrate Prescribed: No Contraindication/Reason for not providing: LVEF >40% Implantable Cardioverter Defibrillator Therapy: No Contraindication/Reason for not providing: LVEF >40% Cardiac Resynchronization Therapy Prescribed: No Contraindication/Reason for not providing: LVEF >40% - Follow up Will be discharged to: [facility] Facility Follow Up Date (must be within 7 days from discharge): 06/29/16 Follow Up Time: 09:00
[2016-06-26 16:37] VITALS: BP 119/65; PULSE 87; RESP 20; TEMP 98
[2016-06-28 09:35] VITALS: O2SAT 96
== END 2016-06-26 16:30 | DRG 89 ==
LOC: C.ER 11:05 → C.9E 14:21 → C.6T 16:05
PROVIDERS: ADMIT Internal Medicine; ATTEND Internal Medicine
PROC: 5A1D60Z (ICD-10-PCS; principal; 2016-06-22)
DX: J18.9 Pneumonia, unspecified organism (principal); I13.2 Hypertensive heart and chronic kidney disease with heart failure and with stage 5 chronic kidney disease, or end stage renal disease; N18.6 End stage renal disease; D89.9 Disorder involving the immune mechanism, unspecified; J44.0 Chronic obstructive pulmonary disease with (acute) lower respiratory infection; I27.2 Other secondary pulmonary hypertension; J45.901 Unspecified asthma with (acute) exacerbation; I48.91 Unspecified atrial fibrillation; I50.9 Heart failure, unspecified; D63.1 Anemia in chronic kidney disease; I16.0 Hypertensive urgency; E03.9 Hypothyroidism, unspecified; E78.00 Pure hypercholesterolemia, unspecified; I25.10 Atherosclerotic heart disease of native coronary artery without angina pectoris; Y95 Nosocomial condition; J40 Bronchitis, not specified as acute or chronic; M12.9 Arthropathy, unspecified; Z99.2 Dependence on renal dialysis

== ENCOUNTER 2016-07-18 14:20 | Emergency (ER) | payer OTHER ==
[2016-07-18 14:20] VITALS: BMI 23.0
[2016-07-18 14:26] VITALS: O2SAT 100
--- NOTE | 2016-07-18 15:14 | C.PDOC ---
History Of Present Illness 80-year-old female, presents to the emergency department with complaints of erythema to the left eye for the past two weeks. Patient states she saw her PMD , and was given lubricant eye drops, and advised to f/u with optho. Patient denies trauma. No blurred vision or photophobia. No other complaints at this time. Time Seen by Provider: 07/18/16 14:59 Chief Complaint (Nursing): Eye Problem History Per: Patient History/Exam Limitations: no limitations Onset/Duration Of Symptoms: Days Current Symptoms Are (Timing): Still Present Past Medical History Reviewed: Historical Data, Nursing Documentation, Vital Signs Vital Signs: Last Vital Signs Temp 98.8 F 07/18/16 15:42 Pulse 82 07/18/16 15:42 Resp 16 07/18/16 15:42 BP 172/68 H 07/18/16 15:42 Pulse Ox 100 07/18/16 16:58 - Medical History PMH: Anemia, CHF, COPD, HTN, Hypercholesterolemia, Hypothyroidism, End Stage Renal Disease, Chronic Kidney Disease (ESRF, HD T, TH, SA) Denies: HIV, Kidney Stones, Pulmonary Embolism, Sleep Apnea Surgical History: (x3) - [facility] Procedures ASSISTANCE WITH RESPIRATORY VENTILATION, 24-96 HRS, CPAP (03/19/15) ASSISTANCE WITH RESPIRATORY VENTILATION, <24 HRS, CPAP (05/31/15) CONTINUOUS INVASIVE MECHANICAL VENTILATION <96 CONSEC HRS (07/13/13) HEMODIALYSIS (08/25/14) INJECT/INFUSE NEC (04/03/14) NON-INVASIVE MECHANICAL VENTILATION (08/25/14) PERFORMANCE OF URINARY FILTRATION, MULTIPLE (06/21/16) VACCINATION NEC (01/01/14) VENOUS CATHETERIZATION NEC (07/13/13) Family History: States: Unknown Family Hx - Social History Hx Alcohol Use: No Hx Substance Use: No - Immunization History Hx Tetanus Toxoid Vaccination: No Hx Influenza Vaccination: No Hx Pneumococcal Vaccination: Yes Review Of Systems Except As Marked, All Systems Reviewed And Found Negative. Constitutional: Negative for: Fever Eyes: Positive for: Redness. Negative for: Pain, Vision Change, Conjunctivae Inflammation, Eyelid Inflammation Physical Exam - Physical Exam Appears: Non-toxic, No Acute Distress Head: Atraumatic, Normacephalic Eye(s): left: Other (LEFT EYE: INJECTED, limbic sparing) ED Course And Treatment O2 Sat by Pulse Oximetry: 100 Disposition - Disposition Referrals: Sammy Nieves MD [Staff Provider] - Disposition: HOME/ ROUTINE Disposition Time: 02:00 Condition: GOOD Additional Instructions: please see specialist. return to er with worsening symptoms or concerns. Instructions: Subconjunctival Hemorrhage (ED) Print Language: MALAGASY - Clinical Impression Clinical Impression: Subconjunctival hematoma - Scribe Statement The provider has reviewed the documentation as recorded by the Daibjim Saul All medical record entries made by the Daibjim were at my direction and personally dictated by me. I have reviewed the chart and agree that the record accurately reflects my personal performance of the history, physical exam, medical decision making, and the department course for this patient. I have also personally directed, reviewed, and agree with the discharge instructions and disposition.
[2016-07-18 15:43] VITALS: BP 172/68; PULSE 82; RESP 16; TEMP 98.8
== END 2016-07-18 15:42 | disposition home or self-care (01) ==
LOC: C.ER 14:20
DX: H11.32 Conjunctival hemorrhage, left eye (principal)

== ENCOUNTER 2016-07-22 17:30 | Observation (INO) | payer OTHER ==
[2016-07-22 17:31] VITALS: BMI 23.0
--- NOTE | 2016-07-22 18:10 | C.PDOC ---
History Of Present Illness 80 y/o female, with history of end stage renal failure, dialysis yesterday, presents to emergency department with c/o not feeling well yesterday. Notes she completed dialysis with no issues. Daughter reports that today the patient was c /o chest pain and shortness of breath on exertion, which relieves at rest. Denies fever, chills, URI, nausea, vomiting, or other associated symptoms. Time Seen by Provider: 07/22/16 18:00 Chief Complaint (Nursing): Shortness Of Breath History Per: Patient, Family (daughter) History/Exam Limitations: no limitations Onset/Duration Of Symptoms: Days Current Symptoms Are (Timing): Still Present Exacerbating Factor(s): Exertion Associated Symptoms: denies: Fever, Bloody Cough, Productive Cough, Ankle/Leg Swelling, Dizziness Reports Recently: Seen In ED (4 days ago) Recent travel outside of the [place]: No Past Medical History Reviewed: Historical Data, Nursing Documentation, Vital Signs Vital Signs: Last Vital Signs Temp 98.8 F 07/22/16 17:51 Pulse 90 07/22/16 17:51 Resp 16 07/22/16 18:51 BP 181/69 H 07/22/16 17:51 Pulse Ox 98 07/22/16 20:46 - Medical History PMH: Anemia, CHF, COPD, HTN, Hypercholesterolemia, Hypothyroidism, End Stage Renal Disease, Chronic Kidney Disease (ESRF; HD T, TH, SA) Surgical History: (x3) - [facility] Procedures ASSISTANCE WITH RESPIRATORY VENTILATION, 24-96 HRS, CPAP (03/19/15) ASSISTANCE WITH RESPIRATORY VENTILATION, <24 HRS, CPAP (05/31/15) CONTINUOUS INVASIVE MECHANICAL VENTILATION <96 CONSEC HRS (07/13/13) HEMODIALYSIS (08/25/14) INJECT/INFUSE NEC (04/03/14) NON-INVASIVE MECHANICAL VENTILATION (08/25/14) PERFORMANCE OF URINARY FILTRATION, MULTIPLE (06/21/16) VACCINATION NEC (01/01/14) VENOUS CATHETERIZATION NEC (07/13/13) Family History: States: Unknown Family Hx - Social History Hx Alcohol Use: No Hx Substance Use: No - Immunization History Hx Tetanus Toxoid Vaccination: No Hx Influenza Vaccination: No Hx Pneumococcal Vaccination: Yes Review Of Systems Except As Marked, All Systems Reviewed And Found Negative. Constitutional: Negative for: Fever, Chills Cardiovascular: Positive for: Chest Pain. Negative for: Palpitations Respiratory: Positive for: SOB with Excertion. Negative for: Cough, Wheezing Gastrointestinal: Negative for: Nausea, Vomiting, Abdominal Pain Skin: Negative for: Rash Neurological: Negative for: Dizziness Physical Exam - Physical Exam Appears: Non-toxic, No Acute Distress Skin: Warm, Dry Head: Atraumatic, Normacephalic Eye(s): bilateral: PERRL, EOMI, Other (bilateral conjunctiva) Chest: Symmetrical Cardiovascular: Rhythm Regular, No Murmur Respiratory: No Accessory Muscle Use, Rales (fine, bilateral), No Wheezing Gastrointestinal/Abdominal: Soft, No Tenderness, No Guarding, No Rebound Back: Normal Inspection Extremity: Normal ROM, Capillary Refill (< 2 sec. ) Neurological/Psych: Oriented x3, Normal Speech, Normal Cognition ED Course And Treatment - Laboratory Results Result Diagrams: 07/22/16 18:18 07/22/16 18:18 Lab Interpretation: Abnormal (Mild anemia, Elevated BUN and Cr with K+ 5.2, BNP [id number]) ECG: Interpreted By Me ECG Rhythm: Sinus Rhythm (with occasional supraventricular complexes.) O2 Sat by Pulse Oximetry: 98 (RA) Pulse Ox Interpretation: Normal - Radiology CXR: Interpreted by Me CXR Interpretation: Yes: Cardiomegaly, Other (vascular prominence, CHF) Progress Note: 324mg aspirin PO given. EKG, CxR, bloodwork ordered. Reevaluation Time: 20:42 Reassessment Condition: Unchanged (Patient remains comfortable in ED.) - Physician Consult Information Outcome Of Conversation: Case discussed with Dr Tony covering for Dr Crane. Patient to be admitted for dialysis and cardiac evaluation. Disposition - Disposition Disposition: HOSPITALIZED Disposition Time: 20:43 Condition: STABLE - POA Present On Arrival: None - Clinical Impression Clinical Impression: ESRD (end stage renal disease) on dialysis, CHF (congestive heart failure) - Scribe Statement The provider has reviewed the documentation as recorded by the Scribjim Garcia All medical record entries made by the Scribe were at my direction and personally dictated by me. I have reviewed the chart and agree that the record accurately reflects my personal performance of the history, physical exam, medical decision making, and the department course for this patient. I have also personally directed, reviewed, and agree with the discharge instructions and disposition.
[2016-07-22 18:24] LABS: BASO # 0.1 K/uL (0.0-0.2); BASO % 1.2 % (0.0-2.0); EOS # 0.2 K/uL (0.0-0.7); EOS % 3.3 % (0.0-4.0); HEMATOCRIT 32.1 % (34.0-47.0); LYMPH # 1.2 K/uL (1.0-4.3); LYMPH % 25.1 % (20.0-40.0); MEAN CELL VOLUME 94.3 fL (81.0-99.0); MEAN CORPUSCULAR HEMOGLOBIN 30.8 pg (27.0-31.0); MEAN CORPUSCULAR HGB CONC 32.7 g/dL (33.0-37.0); MEAN PLATELET VOLUME 9.3 fL (7.2-11.7); MONO # 0.4 K/uL (0.0-0.8); MONO % 8.8 % (0.0-10.0); WHITE BLOOD COUNT 4.7 K/uL (4.8-10.8)
[2016-07-22 18:30] LABS: POTASSIUM 5.2 mmol/L (3.6-5.2)
[2016-07-22 18:32] LABS: ALB/GLOB RATIO 1.2 (1.0-2.1); BILIRUBIN,TOTAL 1.4 mg/dL (0.2-1.3); TOTAL PROTEIN 8.2 g/dL (6.3-8.3)
[2016-07-22 18:33] LABS: CALCIUM 9.4 mg/dl (8.6-10.4)
[2016-07-22 18:45] LABS: TROPONIN I 0.016 ng/mL (0.00-0.120)
--- NOTE | 2016-07-22 21:21 | CP.PCM.HP ---
<Nii Lockhart - Last Filed: 07/24/16 07:24> History of Present Illness - History of Present Illness History of Present Illness: CC: "Short of breath" 80 F with PMH HTN, ESRD on HD, Valvular heart disease, Hypothyroidism presents to [facility] ED for complaint of SOB. Patients daughter was bedside during interview. Patient states the SOB started yesterday after dialysis. Patient receives dialysis Wednesday, , and Wednesday. Patient believes that they did not remove enough fluid. Patient has experienced this in the past. She was admitted 3 weeks ago for a similar complaint. She was then sent to [facility] for subacute rehab where she was discharged last Wednesday according to daughter. Patient currently denies any pain. Exertion exacerbates her shortness of breath while nothing alleviates it. Admits to fatigue. Denies fever/chills, cp, abd pain, n/v/d, incontinence, urinary symptoms. PMD: Dr. Nesbitt Nephro: Dr. Culp PMH: HTN, ESRD on HD, Valvular heart disease, Hypothyroidism Meds: As per EMR Allergy: NKDA PSH: FLET[facility]ERE AVF Hosp: 3 weeks ago for ESRD and SOB FH: [place] Social: denies tobacco/etoh/illicit drug use Present on Admission - Present on Admission Any Indicators Present on Admission: No History of DVT/PE: No History of Uncontrolled Diabetes: No Urinary Catheter: No Decubitus Ulcer Present: No Review of Systems - Review of Systems All systems: reviewed and no additional remarkable complaints except (as per HPI ) Past Patient History - Infectious Disease Hx of Infectious Diseases: None - Tetanus Immunizations Tetanus Immunization: Unknown - Past Medical History & Family History Past Medical History?: Yes - Past Social History Smoking Status: Never Smoked - CARDIAC Hx Congestive Heart Failure: Yes Hx Hypercholesterolemia: Yes Hx Hypertension: Yes - PULMONARY Hx Chronic Obstructive Pulmonary Disease (COPD): Yes - NEUROLOGICAL Hx Neurological Disorder: No - HEENT Hx HEENT Problems: No - RENAL Hx Chronic Kidney Disease: Yes (ESRF; HD , , ) - ENDOCRINE/METABOLIC Hx Hypothyroidism: Yes - HEMATOLOGICAL/ONCOLOGICAL Hx Anemia: Yes - INTEGUMENTARY Hx Dermatological Problems: No - MUSCULOSKELETAL/RHEUMATOLOGICAL Hx Falls: No - GASTROINTESTINAL Hx Gastrointestinal Disorders: No - GENITOURINARY/GYNECOLOGICAL Hx Genitourinary Disorders: No - PSYCHIATRIC Hx Substance Use: No - SURGICAL HISTORY Hx Surgeries: Yes Hx Arteriovenous Shunt: Yes Hx Vascular Access Device: Yes (Right arm Av fistula) - ANESTHESIA Hx Anesthesia: Yes Hx Anesthesia Reactions: No Meds Allergies/Adverse Reactions: Allergies Allergy/AdvReac Type Severity Reaction Status Date / Time No Known Allergies Allergy Verified 07/18/16 14:26 Physical Exam - Constitutional Appears: No Acute Distress - Head Exam Head Exam: ATRAUMATIC, NORMOCEPHALIC - Eye Exam Eye Exam: EOMI, Normal appearance Pupil Exam: PERRL - ENT Exam ENT Exam: Mucous Membranes Moist - Neck Exam Neck exam: Positive for: Normal Inspection - Respiratory Exam Respiratory Exam: Rales, Rhonchi, NORMAL BREATHING PATTERN - Cardiovascular Exam Cardiovascular Exam: REGULAR RHYTHM, +S1, +S2 - GI/Abdominal Exam GI & Abdominal Exam: Normal Bowel Sounds, Soft. absent: Distended, Firm, Guarding, Rebound, Tenderness - Extremities Exam Extremities exam: Positive for: normal capillary refill, pedal pulses present. Negative for: calf tenderness, pedal edema - Back Exam Back exam: absent: CVA tenderness (L), CVA tenderness (R), paraspinal tenderness - Neurological Exam Neurological exam: Alert, CN II-XII Intact, Oriented x3 - Psychiatric Exam Psychiatric exam: Normal Affect, Normal Mood - Skin Skin Exam: Dry, Intact, Normal Color, Warm Results - Vital Signs Recent Vital Signs: Last Vital Signs Temp 98.8 F 07/22/16 17:51 Pulse 90 07/22/16 17:51 Resp 16 07/22/16 18:51 BP 181/69 H 07/22/16 17:51 Pulse Ox 98 07/22/16 21:06 - Labs Result Diagrams: 07/24/16 06:19 07/24/16 06:19 Labs: Laboratory Results - last 24 hr 07/22/16 07/22/16 18:18 18:18 WBC 4.7 L RBC 3.40 L Hgb 10.5 L Hct 32.1 L MCV 94.3 MCH 30.8 MCHC 32.7 L RDW 17.0 H Plt Count 175 MPV 9.3 Neut % (Auto) 61.6 Lymph % (Auto) 25.1 [place] % (Auto) 8.8 Eos % (Auto) 3.3 Baso % (Auto) 1.2 Neut # 2.9 Lymph # 1.2 [place] # 0.4 Eos # 0.2 Baso # 0.1 Sodium 137 Potassium 5.2 Chloride 98 Carbon Dioxide 27 Anion Gap 18 BUN 35 H Creatinine 5.1 H Est GFR ( Amer) 10 Est GFR (Non-Af Amer) 8 Random Glucose 117 H Calcium 9.4 Total Bilirubin 1.4 H AST 65 H D ALT 34 Alkaline Phosphatase 79 Troponin I 0.0160 NT-Pro-B Natriuret Pep 51461 H Total Protein 8.2 Albumin 4.5 Globulin 3.7 Albumin/Globulin Ratio 1.2 Assessment & Plan - Assessment and Plan (Free Text) Plan: 1. Dyspnea/ESRD HD Nephro consult, Dr. Culp, help appreciated Renal Caps Renvela Bobby 2. HTN Amlodipine 10 mg PO daily 3. Hypothyroidism Synthroid 25 mcg PO daily 4. Prophylactic Measures Protonix 40 mg PO daily <Keanu Crane P - Last Filed: 07/26/16 19:45> Results - Vital Signs Recent Vital Signs: Last Vital Signs Temp 98.7 F 07/26/16 15:05 Pulse 89 07/26/16 15:05 Resp 20 07/26/16 15:05 BP 130/65 07/26/16 15:05 Pulse Ox 100 07/26/16 15:05 - Labs Result Diagrams: 07/26/16 08:12 07/26/16 08:12 Labs: Laboratory Results - last 24 hr 07/26/16 07/26/16 08:12 08:12 WBC 6.2 RBC 3.79 L Hgb 11.6 Hct 36.3 MCV 95.7 MCH 30.6 MCHC 32.0 L RDW 17.2 H Plt Count 183 MPV 8.6 Neut % (Auto) 62.1 Lymph % (Auto) 23.6 [place] % (Auto) 9.4 Eos % (Auto) 4.0 Baso % (Auto) 0.9 Neut # 3.9 Lymph # 1.5 [place] # 0.6 Eos # 0.2 Baso # 0.1 Sodium 137 Potassium 4.2 Chloride 94 L Carbon Dioxide 32 H Anion Gap 15 BUN 15 Creatinine 3.9 H Est GFR ( Amer) 13 Est GFR (Non-Af Amer) 11 Random Glucose 93 Calcium 9.0 Total Bilirubin 0.8 AST 32 ALT 32 Alkaline Phosphatase 78 Total Protein 7.5 Albumin 4.0 Globulin 3.4 Albumin/Globulin Ratio 1.2 Attending/Attestation - Attestation I have personally seen and examined this patient.: Yes I have fully participated in the care of the patient.: Yes I have reviewed all pertinent clinical information: Yes
[2016-07-22 22:39] LABS: CHOLESTEROL 186 mg/dL (0-199)
[2016-07-22 22:42] LABS: T4 6.33 ug/dL (5.5-11.0)
[2016-07-22 22:56] LABS: THYROID STIMULATING HORMONE 1.52 mIU/L (0.46-4.68)
--- NOTE | 2016-07-23 08:40 | RAD ---
PROCEDURE: CHEST RADIOGRAPH, 1 VIEW HISTORY: chest pain COMPARISON: 06/21/2016 FINDINGS: LUNGS: No consolidation appreciated. Biapical pleural thickening right greater than left with possible upper lobe traction bronchiectatic changes. Some mild cystic emphysematous type changes the central lungs bilaterally are suspect. Probable summation of soft tissues over the left costophrenic angle PLEURA: As above. No pneumothorax CARDIOVASCULAR: Mild cardiomegalyThe bronchovascular markings appear slightly increased possibly chronic . Right subclavian stent in place as before OSSEOUS STRUCTURES: Generalized osteopenia. Bilateral shoulder osteoarthrosis VISUALIZED UPPER ABDOMEN: Normal. OTHER FINDINGS: None. IMPRESSION: Cardiomegaly and mild pulmonary venous congestion -possibly chronic. Right subclavian stent in place as before Stable appearing biapical pleural thickening and possible concomitant mild traction bronchiectasis upper lobes. Possible cystic central emphysematous changes .
[2016-07-23] MEDS ORDERED: Albuterol-Ipratrop 3 mg / 0.5 (3 ml) UD ONE (09:58)
[2016-07-23] MEDS ORDERED: MethylPREDNISolone 40 mg Vial ONE (09:59)
[2016-07-23] MEDS ORDERED: Tears Naturale Forte (15ml) OU SCH (10:00)
[2016-07-23] MEDS ORDERED: Albuterol-Ipratrop 3 mg / 0.5 (3 ml) UD INH PRN (18:55)
[2016-07-23] MEDS: Pantoprazole 40 mg EC Tab PO SCH (19:25)
[2016-07-23] MEDS: Multivitamin Vitamin B Complex (Nephro-Vite) Tab PO SCH (19:25)
[2016-07-23] MEDS: Levothyroxine 25 MCG TAB PO SCH (19:26)
--- NOTE | 2016-07-23 20:03 | CP.PCM.PCO ---
Physician Communication Note - Physician Communication Note Physician Communication Note: written note in chart secondary to [employer] outage
[2016-07-23 20:49] LABS: ALB/GLOB RATIO 1.2 (1.0-2.1); BILIRUBIN,TOTAL 1.1 mg/dL (0.2-1.3); CALCIUM 9.5 mg/dl (8.6-10.4); POTASSIUM 4.7 mmol/L (3.6-5.2); TOTAL PROTEIN 8.2 g/dL (6.3-8.3)
[2016-07-23 22:05] LABS: BASO # 0.1 K/uL (0.0-0.2); BASO % 0.8 % (0.0-2.0); EOS # 0.2 K/uL (0.0-0.7); EOS % 2.7 % (0.0-4.0); HEMATOCRIT 36.7 % (34.0-47.0); LYMPH % 46.1 % (20.0-40.0); MEAN CELL VOLUME 95.6 fL (81.0-99.0); MEAN CORPUSCULAR HEMOGLOBIN 30.6 pg (27.0-31.0); MEAN PLATELET VOLUME 8.9 fL (7.2-11.7); MONO # 0.5 K/uL (0.0-0.8); MONO % 5.8 % (0.0-10.0); RED CELL DISTRIBUTION WIDTH 17.6 % (11.5-14.5); WHITE BLOOD COUNT 8.7 K/uL (4.8-10.8)
[2016-07-24] MEDS: Levothyroxine 25 MCG TAB PO SCH (05:58)
[2016-07-24 06:42] LABS: POTASSIUM 4.3 mmol/L (3.6-5.2)
[2016-07-24 06:45] LABS: ALB/GLOB RATIO 1.3 (1.0-2.1); BILIRUBIN,TOTAL 0.8 mg/dL (0.2-1.3); CALCIUM 8.6 mg/dl (8.6-10.4); TOTAL PROTEIN 6.8 g/dL (6.3-8.3)
[2016-07-24 06:55] LABS: BASO % 0.6 % (0.0-2.0); EOS # 0.1 K/uL (0.0-0.7); EOS % 1.5 % (0.0-4.0); HEMATOCRIT 30.4 % (34.0-47.0); LYMPH # 1.5 K/uL (1.0-4.3); LYMPH % 22.5 % (20.0-40.0); MEAN CELL VOLUME 94.8 fL (81.0-99.0); MEAN CORPUSCULAR HEMOGLOBIN 31.1 pg (27.0-31.0); MEAN CORPUSCULAR HGB CONC 32.8 g/dL (33.0-37.0); MEAN PLATELET VOLUME 8.9 fL (7.2-11.7); MONO # 0.5 K/uL (0.0-0.8); MONO % 7.4 % (0.0-10.0); NRBC % 0.2 % (0.0-2.0); RED CELL DISTRIBUTION WIDTH 16.7 % (11.5-14.5); WHITE BLOOD COUNT 6.6 K/uL (4.8-10.8)
[2016-07-24 08:01] LABS: THYROID STIMULATING HORMONE 0.86 mIU/L (0.46-4.68)
[2016-07-24] MEDS: Pantoprazole 40 mg EC Tab PO SCH (09:21)
[2016-07-24] MEDS: Multivitamin Vitamin B Complex (Nephro-Vite) Tab PO SCH (09:21)
--- NOTE | 2016-07-24 09:56 | RAD ---
HISTORY: sob COMPARISON: 07/22/2016 FINDINGS: LUNGS: No pulmonary infiltrate. PLEURA: Small right pleural effusion. Minimal bilateral apical pleural thickening, unchanged. CARDIOVASCULAR: Normal heart size. Right brachiocephalic venous stent. Grossly unchanged. OSSEOUS STRUCTURES: No significant abnormalities. VISUALIZED UPPER ABDOMEN: Normal. OTHER FINDINGS: None. IMPRESSION: Small right pleural effusion. No acute infiltrate.
--- NOTE | 2016-07-24 11:08 | CP.PCM.PN ---
Subjective - Date & Time of Evaluation Date of Evaluation: 07/24/16 Time of Evaluation: 10:00 - Subjective Subjective: Feels much better today Objective - Vital Signs/Intake and Output Vital Signs (last 24 hours): Temp Pulse Resp BP Pulse Ox 98.9 F 86 20 154/63 H 95 07/24/16 07:00 07/24/16 07:00 07/24/16 07:00 07/24/16 07:00 07/24/16 07:00 - Medications Medications: Current Medications Albuterol/Ipratropium (Duoneb 3 Mg/0.5 Mg (3 Ml) Ud) 3 ml INH RQ6 PRN PRN Reason: SOB Amlodipine Besylate (Norvasc) 10 mg PO DAILY [facility] Last Admin: 07/24/16 09:21 Dose: 10 mg Heparin Sodium (Porcine) (Heparin) 5,000 units SC Q8 [facility] Last Admin: 07/24/16 05:58 Dose: 5,000 units Hypromellose (Tears Naturale Forte) 0 ml OU DAILY [facility] Last Admin: 07/23/16 19:26 Dose: Not Given Levothyroxine Sodium (Synthroid) 25 mcg PO DAILY@0630 [facility] Last Admin: 07/24/16 05:58 Dose: 25 mcg Pantoprazole Sodium (Protonix Ec Tab) 40 mg PO DAILY [facility] Last Admin: 07/24/16 09:21 Dose: 40 mg Sevelamer Carbonate (Renvela) 1,600 mg PO TIDCC [facility] Last Admin: 07/24/16 07:59 Dose: 1,600 mg Vitamin B Complex/Vit C/Folic Acid (Nephro-Dana) 1 tab PO DAILY [facility] Last Admin: 07/24/16 09:21 Dose: 1 tab - Labs Labs: 07/24/16 06:19 07/24/16 06:19 PT 10.6 SECONDS (9.7-12.2) 07/24/16 06:19 INR 1.0 07/24/16 06:19 APTT 44 SECONDS (21-34) H 07/24/16 06:19 - Respiratory Exam Additional comments: No rhales or whwwzes - Cardiovascular Exam Cardiovascular Exam: REGULAR RHYTHM - Extremities Exam Additional comments: No edema Assessment and Plan - Assessment and Plan (Free Text) Assessment: ESRd Fluid overload HTN improved Plan: Will schedule extra dialysis today Labs stable
--- NOTE | 2016-07-24 15:08 | RAD ---
HISTORY: CH PAIN COMPARISON: 07/22/2016 FINDINGS: LUNGS: New infiltrate at right base. Possible pneumonia. PLEURA: Silhouetting of left hemidiaphragm suggests possible left pleural effusion. No evidence of right pleural effusion. No pneumothorax. CARDIOVASCULAR: Normal heart size. Right brachiocephalic vascular stent. OSSEOUS STRUCTURES: No significant abnormalities. VISUALIZED UPPER ABDOMEN: Normal. OTHER FINDINGS: None. IMPRESSION: New right basilar infiltrate. Possible left pleural effusion.
--- NOTE | 2016-07-24 16:42 | CP.PCM.PN ---
<Wei Walker - Last Filed: 07/24/16 16:42> Subjective - Date & Time of Evaluation Date of Evaluation: 07/24/16 Time of Evaluation: 16:40 - Subjective Subjective: Med progress note. Attending: Dr. Parsons Pt seen and examined at bedside. No acute distress. No events overnight. pt getting extra dialysis today. Pt still has some sob, and some tiredness. No fevers, chills, vomiting, diarrhea. Objective - Vital Signs/Intake and Output Vital Signs (last 24 hours): Temp Pulse Resp BP Pulse Ox 98.2 F 75 16 130/58 L 100 07/24/16 15:40 07/24/16 15:40 07/24/16 15:40 07/24/16 15:40 07/24/16 15:40 Intake and Output: 07/24/16 07/24/16 06:59 18:59 Intake Total 240 Balance 240 - Medications Medications: Current Medications Albuterol/Ipratropium (Duoneb 3 Mg/0.5 Mg (3 Ml) Ud) 3 ml INH RQ6 PRN PRN Reason: SOB Last Admin: 07/23/16 10:00 Dose: 3 ml Amlodipine Besylate (Norvasc) 10 mg PO DAILY [facility] Last Admin: 07/24/16 09:21 Dose: 10 mg Artificial Tears (Artificial Tears) 0 ml OU DAILY [facility] Heparin Sodium (Porcine) (Heparin) 5,000 units SC Q8 [facility] Last Admin: 07/24/16 13:38 Dose: Not Given Levothyroxine Sodium (Synthroid) 25 mcg PO DAILY@0630 [facility] Last Admin: 07/24/16 05:58 Dose: 25 mcg Pantoprazole Sodium (Protonix Ec Tab) 40 mg PO DAILY [facility] Last Admin: 07/24/16 09:21 Dose: 40 mg Sevelamer Carbonate (Renvela) 1,600 mg PO TIDCC [facility] Last Admin: 07/24/16 12:22 Dose: 1,600 mg Vitamin B Complex/Vit C/Folic Acid (Nephro-Dana) 1 tab PO DAILY [facility] Last Admin: 07/24/16 09:21 Dose: 1 tab - Labs Labs: 07/24/16 06:19 07/24/16 06:19 PT 10.6 SECONDS (9.7-12.2) 07/24/16 06:19 INR 1.0 07/24/16 06:19 APTT 44 SECONDS (21-34) H 07/24/16 06:19 - Constitutional Appears: Non-toxic, No Acute Distress - Head Exam Head Exam: ATRAUMATIC, NORMAL INSPECTION, NORMOCEPHALIC - Eye Exam Eye Exam: EOMI - ENT Exam ENT Exam: Mucous Membranes Moist - Neck Exam Neck Exam: Full ROM, Normal Inspection - Respiratory Exam Respiratory Exam: NORMAL BREATHING PATTERN. absent: Respiratory Distress - Cardiovascular Exam Cardiovascular Exam: +S1, +S2 - GI/Abdominal Exam GI & Abdominal Exam: Soft, Normal Bowel Sounds. absent: Tenderness - Extremities Exam Extremities Exam: Full ROM, Normal Inspection - Neurological Exam Neurological Exam: Alert, Awake, Oriented x3 - Psychiatric Exam Psychiatric exam: Normal Affect, Normal Mood - Skin Skin Exam: Dry, Intact, Normal Color, Warm Assessment and Plan - Assessment and Plan (Free Text) Assessment: This is a 80 year old female with past medical hx of HTN,ESRD on HD, valvular heart disease, hypothyroidism presenting for SOB 1. Dyspnea/ESRD HD Today Nephro consult, Dr. Culp, help appreciated Renal Caps Loria Bobby q 6 previous echo shows EF 40-45 with moderate AR and MR cxr today shows small right pleural effusion 2. HTN Amlodipine 10 mg PO daily 3. Hypothyroidism Synthroid 25 mcg PO daily 4. Prophylactic Measures Protonix 40 mg PO daily [facility] Dispo: likely to be discharged tomorrow discussed with Dr. Parsons. <Vimal Parsons - Last Filed: 08/30/16 11:28> Objective - Vital Signs/Intake and Output Vital Signs (last 24 hours): Temp Pulse Resp BP Pulse Ox 98.7 F 89 20 130/65 100 07/26/16 15:05 07/26/16 15:05 07/26/16 15:05 07/26/16 15:05 07/26/16 15:05 - Labs Labs: 07/26/16 08:12 07/26/16 08:12 PT 10.6 SECONDS (9.7-12.2) 07/24/16 06:19 INR 1.0 07/24/16 06:19 APTT 44 SECONDS (21-34) H 07/24/16 06:19 Attending/Attestation - Attestation I have personally seen and examined this patient.: Yes I have fully participated in the care of the patient.: Yes I have reviewed all pertinent clinical information, including history, physical exam and plan: Yes Notes (Text): Patient seen and examined. Agree with the resident's evaluation, assessment and plan. This is a 80 year old female with past medical hx of HTN,ESRD on HD, valvular heart disease, hypothyroidism presenting for SOB Dyspnea/ESRD
[2016-07-25] MEDS: Levothyroxine 25 MCG TAB PO SCH (05:35)
[2016-07-25 07:29] LABS: BASO # 0.1 K/uL (0.0-0.2); EOS # 0.3 K/uL (0.0-0.7); EOS % 4.2 % (0.0-4.0); HEMATOCRIT 32.1 % (34.0-47.0); LYMPH # 1.6 K/uL (1.0-4.3); MEAN CELL VOLUME 94.5 fL (81.0-99.0); MEAN CORPUSCULAR HEMOGLOBIN 31.4 pg (27.0-31.0); MEAN CORPUSCULAR HGB CONC 33.3 g/dL (33.0-37.0); MEAN PLATELET VOLUME 8.7 fL (7.2-11.7); MONO # 0.5 K/uL (0.0-0.8); MONO % 7.5 % (0.0-10.0); NRBC % 0.1 % (0.0-2.0); RED CELL DISTRIBUTION WIDTH 16.7 % (11.5-14.5); WHITE BLOOD COUNT 6.6 K/uL (4.8-10.8)
[2016-07-25 07:47] LABS: POTASSIUM 4.3 mmol/L (3.6-5.2)
[2016-07-25 07:49] LABS: BILIRUBIN,TOTAL 0.8 mg/dL (0.2-1.3)
[2016-07-25 07:50] LABS: ALB/GLOB RATIO 1.2 (1.0-2.1); CALCIUM 8.7 mg/dl (8.6-10.4); MAGNESIUM 2.1 mg/dL (1.6-2.3); PHOSPHOROUS 2.1 mg/dL (2.5-4.5); TOTAL PROTEIN 7.5 g/dL (6.3-8.3)
[2016-07-25] MEDS: Pantoprazole 40 mg EC Tab PO SCH (12:58)
[2016-07-25] MEDS: Multivitamin Vitamin B Complex (Nephro-Vite) Tab PO SCH (12:58)
[2016-07-25] MEDS: Aritificial Tears (15ml) OU SCH (12:58)
--- NOTE | 2016-07-25 15:40 | CP.PCM.PN ---
<Gerardo Ruiz - Last Filed: 07/25/16 15:35> Subjective - Date & Time of Evaluation Date of Evaluation: 07/25/16 Time of Evaluation: 09:00 - Subjective Subjective: PGY2 on medicine Dr. Parsons service: Pt seen and examined in dialysis in the morning. No acute events overnight per RN. Pt reports feeling weaker than before and wants to rest. Objective - Vital Signs/Intake and Output Vital Signs (last 24 hours): Temp Pulse Resp BP Pulse Ox 98.7 F 90 18 121/61 99 07/25/16 12:56 07/25/16 12:56 07/25/16 12:56 07/25/16 12:56 07/25/16 12:56 - Medications Medications: Current Medications Albuterol/Ipratropium (Duoneb 3 Mg/0.5 Mg (3 Ml) Ud) 3 ml INH RQ6 PRN PRN Reason: SOB Last Admin: 07/23/16 10:00 Dose: 3 ml Amlodipine Besylate (Norvasc) 10 mg PO DAILY [facility] Last Admin: 07/25/16 12:57 Dose: 10 mg Artificial Tears (Artificial Tears) 0 ml OU DAILY [facility] Last Admin: 07/25/16 12:58 Dose: 1 drop Heparin Sodium (Porcine) (Heparin) 5,000 units SC Q8 [facility] Last Admin: 07/25/16 13:01 Dose: 5,000 units Levothyroxine Sodium (Synthroid) 25 mcg PO DAILY@0630 [facility] Last Admin: 07/25/16 05:35 Dose: 25 mcg Pantoprazole Sodium (Protonix Ec Tab) 40 mg PO DAILY [facility] Last Admin: 07/25/16 12:58 Dose: 40 mg Sevelamer Carbonate (Renvela) 1,600 mg PO TIDCC [facility] Last Admin: 07/25/16 12:57 Dose: 1,600 mg Vitamin B Complex/Vit C/Folic Acid (Nephro-Dana) 1 tab PO DAILY [facility] Last Admin: 07/25/16 12:58 Dose: 1 tab - Labs Labs: PT 10.6 SECONDS (9.7-12.2) 07/24/16 06:19 INR 1.0 07/24/16 06:19 APTT 44 SECONDS (21-34) H 07/24/16 06:19 - Constitutional Appears: Non-toxic, No Acute Distress - Head Exam Head Exam: NORMAL INSPECTION, NORMOCEPHALIC - Eye Exam Eye Exam: Normal appearance Pupil Exam: NORMAL ACCOMODATION - Respiratory Exam Respiratory Exam: Clear to Ausculation Bilateral, NORMAL BREATHING PATTERN. absent: Rhonchi, Wheezes - Cardiovascular Exam Cardiovascular Exam: REGULAR RHYTHM, +S1, +S2. absent: Gallop, Rubs - GI/Abdominal Exam GI & Abdominal Exam: Soft, Normal Bowel Sounds. absent: Tenderness - Neurological Exam Neurological Exam: Alert, Awake, Oriented x3 - Psychiatric Exam Psychiatric exam: Normal Mood - Skin Skin Exam: Intact Assessment and Plan - Assessment and Plan (Free Text) Assessment: This is a 80 year old female with past medical hx of HTN,ESRD on HD, valvular heart disease, hypothyroidism presenting for SOB 1. Dyspnea/ESRD HD Today, s/p extra HD session yesterday and scheduled HD session on Nephro consult, Dr. Culp, help appreciated Renal Caps Renjyothia Sherialexandra q 6 previous echo shows EF 40-45 with moderate AR and MR cxr today shows small right pleural effusion 2. HTN Amlodipine 10 mg PO daily 3. Hypothyroidism Synthroid 25 mcg PO daily 4. Prophylactic Measures Protonix 40 mg PO daily [facility] F/U PT/OT evaluation <Vimal Parsons - Last Filed: 08/30/16 11:29> Objective - Vital Signs/Intake and Output Vital Signs (last 24 hours): Temp Pulse Resp BP Pulse Ox 98.7 F 89 20 130/65 100 07/26/16 15:05 07/26/16 15:05 07/26/16 15:05 07/26/16 15:05 07/26/16 15:05 - Labs Labs: 07/26/16 08:12 07/26/16 08:12 PT 10.6 SECONDS (9.7-12.2) 07/24/16 06:19 INR 1.0 07/24/16 06:19 APTT 44 SECONDS (21-34) H 07/24/16 06:19 Attending/Attestation - Attestation I have personally seen and examined this patient.: Yes I have fully participated in the care of the patient.: Yes I have reviewed all pertinent clinical information, including history, physical exam and plan: Yes Notes (Text): Patient seen and examined. Agree with the resident's evaluation, assessment and plan. This is a 80 year old female with past medical hx of HTN,ESRD on HD, valvular heart disease, hypothyroidism presenting for SOB Dyspnea/ESRD
--- NOTE | 2016-07-25 15:54 | CP.PCM.PN ---
Subjective - Date & Time of Evaluation Date of Evaluation: 07/25/16 Time of Evaluation: 02:00 - Subjective Subjective: No c/o SOB or CP Feels tired Objective - Vital Signs/Intake and Output Vital Signs (last 24 hours): Temp Pulse Resp BP Pulse Ox 98.7 F 90 18 121/61 99 07/25/16 12:56 07/25/16 12:56 07/25/16 12:56 07/25/16 12:56 07/25/16 12:56 - Medications Medications: Current Medications Albuterol/Ipratropium (Duoneb 3 Mg/0.5 Mg (3 Ml) Ud) 3 ml INH RQ6 PRN PRN Reason: SOB Last Admin: 07/23/16 10:00 Dose: 3 ml Amlodipine Besylate (Norvasc) 10 mg PO DAILY [facility] Last Admin: 07/25/16 12:57 Dose: 10 mg Artificial Tears (Artificial Tears) 0 ml OU DAILY [facility] Last Admin: 07/25/16 12:58 Dose: 1 drop Heparin Sodium (Porcine) (Heparin) 5,000 units SC Q8 [facility] Last Admin: 07/25/16 13:01 Dose: 5,000 units Levothyroxine Sodium (Synthroid) 25 mcg PO DAILY@0630 [facility] Last Admin: 07/25/16 05:35 Dose: 25 mcg Pantoprazole Sodium (Protonix Ec Tab) 40 mg PO DAILY [facility] Last Admin: 07/25/16 12:58 Dose: 40 mg Sevelamer Carbonate (Renvela) 1,600 mg PO TIDCC [facility] Last Admin: 07/25/16 12:57 Dose: 1,600 mg Vitamin B Complex/Vit C/Folic Acid (Nephro-Dana) 1 tab PO DAILY [facility] Last Admin: 07/25/16 12:58 Dose: 1 tab - Labs Labs: PT 10.6 SECONDS (9.7-12.2) 07/24/16 06:19 INR 1.0 07/24/16 06:19 APTT 44 SECONDS (21-34) H 07/24/16 06:19 - Respiratory Exam Additional comments: Lungs clear - Cardiovascular Exam Cardiovascular Exam: REGULAR RHYTHM - Extremities Exam Additional comments: No edema or cyanosis Assessment and Plan - Assessment and Plan (Free Text) Assessment: ESRD Pulm. hypertension CAD Plan: Continue HD TTS BMP in am
[2016-07-26 08:26] LABS: BASO # 0.1 K/uL (0.0-0.2); BASO % 0.9 % (0.0-2.0); EOS # 0.2 K/uL (0.0-0.7); HEMATOCRIT 36.3 % (34.0-47.0); LYMPH # 1.5 K/uL (1.0-4.3); LYMPH % 23.6 % (20.0-40.0); MEAN CELL VOLUME 95.7 fL (81.0-99.0); MEAN CORPUSCULAR HEMOGLOBIN 30.6 pg (27.0-31.0); MEAN PLATELET VOLUME 8.6 fL (7.2-11.7); MONO # 0.6 K/uL (0.0-0.8); MONO % 9.4 % (0.0-10.0); RED CELL DISTRIBUTION WIDTH 17.2 % (11.5-14.5); WHITE BLOOD COUNT 6.2 K/uL (4.8-10.8)
[2016-07-26] MEDS: Levothyroxine 25 MCG TAB PO SCH (08:28)
[2016-07-26 08:38] LABS: POTASSIUM 4.2 mmol/L (3.6-5.2)
[2016-07-26 08:40] LABS: ALB/GLOB RATIO 1.2 (1.0-2.1); BILIRUBIN,TOTAL 0.8 mg/dL (0.2-1.3); TOTAL PROTEIN 7.5 g/dL (6.3-8.3)
[2016-07-26] MEDS: Multivitamin Vitamin B Complex (Nephro-Vite) Tab PO SCH (10:17)
[2016-07-26] MEDS: Pantoprazole 40 mg EC Tab PO SCH (10:17)
[2016-07-26] MEDS: Aritificial Tears (15ml) OU SCH (10:17)
--- NOTE | 2016-07-26 14:15 | CP.PCM.PN ---
Subjective - Date & Time of Evaluation Date of Evaluation: 07/26/16 Time of Evaluation: 01:40 - Subjective Subjective: Feels better today. No c/o weakness Objective - Vital Signs/Intake and Output Vital Signs (last 24 hours): Temp Pulse Resp BP Pulse Ox 99.2 F 79 17 126/60 98 07/26/16 07:20 07/26/16 12:00 07/26/16 07:20 07/26/16 10:16 07/26/16 07:20 - Medications Medications: Current Medications Albuterol/Ipratropium (Duoneb 3 Mg/0.5 Mg (3 Ml) Ud) 3 ml INH RQ6 PRN PRN Reason: SOB Last Admin: 07/23/16 10:00 Dose: 3 ml Amlodipine Besylate (Norvasc) 10 mg PO DAILY [facility] Last Admin: 07/26/16 10:17 Dose: 10 mg Artificial Tears (Artificial Tears) 0 ml OU DAILY [facility] Last Admin: 07/26/16 10:17 Dose: 1 drop Levothyroxine Sodium (Synthroid) 25 mcg PO DAILY@0630 [facility] Last Admin: 07/26/16 08:28 Dose: 25 mcg Pantoprazole Sodium (Protonix Ec Tab) 40 mg PO DAILY [facility] Last Admin: 07/26/16 10:17 Dose: 40 mg Sevelamer Carbonate (Renvela) 1,600 mg PO TIDCC [facility] Last Admin: 07/26/16 12:42 Dose: 1,600 mg Vitamin B Complex/Vit C/Folic Acid (Nephro-Dana) 1 tab PO DAILY [facility] Last Admin: 07/26/16 10:17 Dose: 1 tab - Labs Labs: 07/26/16 08:12 07/26/16 08:12 PT 10.6 SECONDS (9.7-12.2) 07/24/16 06:19 INR 1.0 07/24/16 06:19 APTT 44 SECONDS (21-34) H 07/24/16 06:19 - Respiratory Exam Additional comments: Lungs clear - Cardiovascular Exam Cardiovascular Exam: REGULAR RHYTHM - Extremities Exam Additional comments: No edema Assessment and Plan - Assessment and Plan (Free Text) Assessment: ESRD HTN CAD,pulm hypertension Plan: Continue HD per schedule Stable on dialysis
--- NOTE | 2016-07-26 15:31 | CARD ---
APPROVED REPORT EKG Measurement Heart [id number] <Conclusion> Sinus rhythm with premature supraventricular complexes Otherwise normal ECG
[2016-07-26 15:51] VITALS: BP 130/65; PULSE 89; RESP 20; TEMP 98.7; O2SAT 100
--- NOTE | 2016-07-26 17:12 | CP.PCM.DIS ---
<Gerardo Ruiz - Last Filed: 07/26/16 17:06> Provider - Provider Date of Admission: 07/25/16 15:23 Attending physician: Keanu Crane MD Primary care physician: Dr. Nesbitt Consults: Dr. Culp Time Spent in preparation of Discharge (in minutes): 30 Hospital Course - Lab Results Lab Results: Most Recent Lab Values WBC 6.2 K/uL (4.8-10.8) 07/26/16 08:12 RBC 3.79 Mil/uL (3.80-5.20) L 07/26/16 08:12 Hgb 11.6 g/dL (11.0-16.0) 07/26/16 08:12 Hct 36.3 % (34.0-47.0) 07/26/16 08:12 MCV 95.7 fL (81.0-99.0) 07/26/16 08:12 MCH 30.6 pg (27.0-31.0) 07/26/16 08:12 MCHC 32.0 g/dL (33.0-37.0) L 07/26/16 08:12 RDW 17.2 % (11.5-14.5) H 07/26/16 08:12 Plt Count 183 K/uL (130-400) 07/26/16 08:12 MPV 8.6 fL (7.2-11.7) 07/26/16 08:12 Neut % (Auto) 62.1 % (50.0-75.0) 07/26/16 08:12 Lymph % (Auto) 23.6 % (20.0-40.0) 07/26/16 08:12 [place] % (Auto) 9.4 % (0.0-10.0) 07/26/16 08:12 Eos % (Auto) 4.0 % (0.0-4.0) 07/26/16 08:12 Baso % (Auto) 0.9 % (0.0-2.0) 07/26/16 08:12 Neut # 3.9 K/uL (1.8-7.0) 07/26/16 08:12 Lymph # 1.5 K/uL (1.0-4.3) 07/26/16 08:12 [place] # 0.6 K/uL (0.0-0.8) 07/26/16 08:12 Eos # 0.2 K/uL (0.0-0.7) 07/26/16 08:12 Baso # 0.1 K/uL (0.0-0.2) 07/26/16 08:12 PT 10.6 SECONDS (9.7-12.2) 07/24/16 06:19 INR 1.0 07/24/16 06:19 APTT 44 SECONDS (21-34) H 07/24/16 06:19 Sodium 137 mmol/L (132-148) 07/26/16 08:12 Potassium 4.2 mmol/L (3.6-5.2) 07/26/16 08:12 Chloride 94 mmol/L (98-107) L 07/26/16 08:12 Carbon Dioxide 32 mmol/L (22-30) H 07/26/16 08:12 Anion Gap 15 (10-20) 07/26/16 08:12 BUN 15 mg/dL (7-17) 07/26/16 08:12 Creatinine 3.9 MG/DL (0.7-1.2) H 07/26/16 08:12 Est GFR ( Amer) 13 07/26/16 08:12 Est GFR (Non-Af Amer) 11 07/26/16 08:12 Random Glucose 93 mg/dL (65-105) 07/26/16 08:12 Hemoglobin A1c 5.2 % (4.2-6.5) 07/22/16 21:49 Calcium 9.0 mg/dl (8.6-10.4) 07/26/16 08:12 Phosphorus 2.1 mg/dL (2.5-4.5) L 07/25/16 07:09 Magnesium 2.1 mg/dL (1.6-2.3) 07/25/16 07:09 Total Bilirubin 0.8 mg/dL (0.2-1.3) 07/26/16 08:12 AST 32 U/L (14-36) 07/26/16 08:12 ALT 32 U/L (9-52) 07/26/16 08:12 Alkaline Phosphatase 78 U/L (38-126) 07/26/16 08:12 Troponin I 0.0160 ng/mL (0.00-0.120) 07/22/16 18:18 NT-Pro-B Natriuret Pep 47193 pg/mL (0-900) H 07/22/16 22:05 Total Protein 7.5 g/dL (6.3-8.3) 07/26/16 08:12 Albumin 4.0 g/dL (3.5-5.0) 07/26/16 08:12 Globulin 3.4 gm/dL (2.2-3.9) 07/26/16 08:12 Albumin/Globulin Ratio 1.2 (1.0-2.1) 07/26/16 08:12 Triglycerides 45 mg/dL (0-149) 07/22/16 22:05 Cholesterol 186 mg/dL (0-199) 07/22/16 22:05 LDL Cholesterol Direct < 30 mg/dL (0-129) 07/22/16 22:05 HDL Cholesterol 139 mg/dL (30-70) H 07/22/16 22:05 Thyroxine (T4) 6.33 ug/dL (5.5-11.0) 07/22/16 22:05 TSH 3rd Generation 0.86 mIU/L (0.46-4.68) 07/24/16 06:19 - Hospital Course Hospital Course: 80 F with PMH HTN, ESRD on HD, Valvular heart disease, Hypothyroidism presents to [facility] ED for complaint of SOB. Patients daughter was bedside during interview. Patient states the SOB started yesterday after dialysis. Patient receives dialysis Wednesday, , and Wednesday. Patient believes that they did not remove enough fluid. Patient has experienced this in the past. She was admitted 3 weeks ago for a similar complaint. She was then sent to [facility] for subacute rehab where she was discharged last Wednesday according to daughter. Patient currently denies any pain. Exertion exacerbates her shortness of breath while nothing alleviates it. Admits to fatigue. Denies fever/chills, cp, abd pain, n/v/d, incontinence, urinary symptoms. Dr. Castro, covering Dr. Culp was consulted. Patient received dialysis on , Wednesday and a short course on Wednesday. Pt energy was low and was observed for an additional day. Pt discharged after she was able to walk without distress after PT evaluation. 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 Discharge Exam - Head Exam Head Exam: NORMAL INSPECTION, NORMOCEPHALIC - Eye Exam Eye Exam: Normal appearance - Respiratory Exam Respiratory Exam: NORMAL BREATHING PATTERN. absent: Rales, Rhonchi - Cardiovascular Exam Cardiovascular Exam: REGULAR RHYTHM, +S1, +S2 - GI/Abdominal Exam GI & Abdominal Exam: Normal Bowel Sounds, Soft. absent: Tenderness - Neurological Exam Neurological exam: Alert, Oriented x3 - Skin Skin Exam: Dry Discharge Plan - Follow Up Plan Condition: IMPROVED Disposition: HOME/ ROUTINE Instructions: Renal Failure Diet (DC), Dialysis Diet (DC), Hypothyroidism (DC) , Chronic Hypertension (DC), Dyspnea (GEN), End Stage Kidney Disease (DC) Additional Instructions: Discharged per Dr. Parsons. Please resume all your home medications. Please follow up with your business administration teacher Dr. Anne within 1-2 weeks after discharge. Also make appointment for eye doctor Dr. Nieves. Come to ED if symptoms reoccurred. Referrals: Yash Culp MD [Staff Provider] - Sammy Nieves MD [Staff Provider] - <Vimal Parsons - Last Filed: 08/30/16 11:30> Provider - Provider Date of Admission: 07/25/16 15:23 Attending physician: Keanu Crane MD Time Spent in preparation of Discharge (in minutes): 32 Hospital Course - Lab Results Lab Results: Most Recent Lab Values WBC 6.2 K/uL (4.8-10.8) 07/26/16 08:12 RBC 3.79 Mil/uL (3.80-5.20) L 07/26/16 08:12 Hgb 11.6 g/dL (11.0-16.0) 07/26/16 08:12 Hct 36.3 % (34.0-47.0) 07/26/16 08:12 MCV 95.7 fL (81.0-99.0) 07/26/16 08:12 MCH 30.6 pg (27.0-31.0) 07/26/16 08:12 MCHC 32.0 g/dL (33.0-37.0) L 07/26/16 08:12 RDW 17.2 % (11.5-14.5) H 07/26/16 08:12 Plt Count 183 K/uL (130-400) 07/26/16 08:12 MPV 8.6 fL (7.2-11.7) 07/26/16 08:12 Neut % (Auto) 62.1 % (50.0-75.0) 07/26/16 08:12 Lymph % (Auto) 23.6 % (20.0-40.0) 07/26/16 08:12 [place] % (Auto) 9.4 % (0.0-10.0) 07/26/16 08:12 Eos % (Auto) 4.0 % (0.0-4.0) 07/26/16 08:12 Baso % (Auto) 0.9 % (0.0-2.0) 07/26/16 08:12 Neut # 3.9 K/uL (1.8-7.0) 07/26/16 08:12 Lymph # 1.5 K/uL (1.0-4.3) 07/26/16 08:12 [place] # 0.6 K/uL (0.0-0.8) 07/26/16 08:12 Eos # 0.2 K/uL (0.0-0.7) 07/26/16 08:12 Baso # 0.1 K/uL (0.0-0.2) 07/26/16 08:12 PT 10.6 SECONDS (9.7-12.2) 07/24/16 06:19 INR 1.0 07/24/16 06:19 APTT 44 SECONDS (21-34) H 07/24/16 06:19 Sodium 137 mmol/L (132-148) 07/26/16 08:12 Potassium 4.2 mmol/L (3.6-5.2) 07/26/16 08:12 Chloride 94 mmol/L (98-107) L 07/26/16 08:12 Carbon Dioxide 32 mmol/L (22-30) H 07/26/16 08:12 Anion Gap 15 (10-20) 07/26/16 08:12 BUN 15 mg/dL (7-17) 07/26/16 08:12 Creatinine 3.9 MG/DL (0.7-1.2) H 07/26/16 08:12 Est GFR ( Amer) 13 07/26/16 08:12 Est GFR (Non-Af Amer) 11 07/26/16 08:12 POC Glucose (mg/dL) 96 mg/dL (65-110) 07/26/16 12:03 Random Glucose 93 mg/dL (65-105) 07/26/16 08:12 Hemoglobin A1c 5.2 % (4.2-6.5) 07/22/16 21:49 Calcium 9.0 mg/dl (8.6-10.4) 07/26/16 08:12 Phosphorus 2.1 mg/dL (2.5-4.5) L 07/25/16 07:09 Magnesium 2.1 mg/dL (1.6-2.3) 07/25/16 07:09 Total Bilirubin 0.8 mg/dL (0.2-1.3) 07/26/16 08:12 AST 32 U/L (14-36) 07/26/16 08:12 ALT 32 U/L (9-52) 07/26/16 08:12 Alkaline Phosphatase 78 U/L (38-126) 07/26/16 08:12 Troponin I 0.0160 ng/mL (0.00-0.120) 07/22/16 18:18 NT-Pro-B Natriuret Pep 64609 pg/mL (0-900) H 07/22/16 22:05 Total Protein 7.5 g/dL (6.3-8.3) 07/26/16 08:12 Albumin 4.0 g/dL (3.5-5.0) 07/26/16 08:12 Globulin 3.4 gm/dL (2.2-3.9) 07/26/16 08:12 Albumin/Globulin Ratio 1.2 (1.0-2.1) 07/26/16 08:12 Triglycerides 45 mg/dL (0-149) 07/22/16 22:05 Cholesterol 186 mg/dL (0-199) 07/22/16 22:05 LDL Cholesterol Direct < 30 mg/dL (0-129) 07/22/16 22:05 HDL Cholesterol 139 mg/dL (30-70) H 07/22/16 22:05 Thyroxine (T4) 6.33 ug/dL (5.5-11.0) 07/22/16 22:05 TSH 3rd Generation 0.86 mIU/L (0.46-4.68) 07/24/16 06:19 Attending/Attestation - Attestation I have personally seen and examined this patient.: Yes I have fully participated in the care of the patient.: Yes I have reviewed all pertinent clinical information, including history, physical exam and plan: Yes Notes (Text): Patient seen and examined. Agree with the resident's evaluation, assessment and plan. This is a 80 year old female with past medical hx of HTN,ESRD on HD, valvular heart disease, hypothyroidism presenting for SOB Dyspnea/ESRD was due to fluid overload due to esrd improved.
== END 2016-07-26 15:15 | disposition home or self-care (01) ==
LOC: C.ER 17:30 → C.9E 21:06 → C.6T 21:40 → INTOOBSV 07-25 15:23 → OBSVTOIN 07-25 15:23
PROVIDERS: ADMIT Internal Medicine; ATTEND Internal Medicine
PROC: 5A1D00Z (ICD-10-PCS; principal; 2016-07-25)
DX: I13.2 Hypertensive heart and chronic kidney disease with heart failure and with stage 5 chronic kidney disease, or end stage renal disease (principal); N18.6 End stage renal disease; I27.2 Other secondary pulmonary hypertension; I50.9 Heart failure, unspecified; J44.9 Chronic obstructive pulmonary disease, unspecified; I25.10 Atherosclerotic heart disease of native coronary artery without angina pectoris; E03.9 Hypothyroidism, unspecified; D64.9 Anemia, unspecified; E78.00 Pure hypercholesterolemia, unspecified; R06.02 Shortness of breath; Z99.2 Dependence on renal dialysis
CPT/HCPCS: 36415; 71010; 80053; 80061; 82948; 83036; 83735; 83880; 84100; 84436; 84443; 84484; 85025; 85027; 85610; 85730; 93005; 94640; 96372; 96374; 97162; 99285; G0257; G0378; G8978; G8979; G8980; J1644; J1940

== ENCOUNTER 2017-10-03 22:34 | Emergency (ER) | payer OTHER ==
[2017-10-03 22:34] VITALS: BMI 23.3
--- NOTE | 2017-10-04 00:21 | C.PDOC ---
History Of Present Illness 81yo female, comes to ER for evaluation after she fell and injured the right side of head and right wrist/hand area. She denies any loss of consciounsess and offers no other complaints. - HPI Time Seen by Provider: 10/04/17 00:10 Chief Complaint (Nursing): Trauma History Per: Patient History/Exam Limitations: no limitations Location Of Injury: Right: Hand, Head, Wrist, Anterior: Head Additional History Per: Patient Past Medical History Reviewed: Historical Data, Nursing Documentation, Vital Signs Vital Signs: Last Vital Signs Temp 98.4 F 10/03/17 22:48 Pulse 76 10/03/17 22:48 Resp 16 10/03/17 22:48 BP 161/68 H 10/03/17 22:48 Pulse Ox 100 10/04/17 02:18 - Medical History PMH: Anemia, CHF, COPD, HTN, Hypercholesterolemia, Hypothyroidism, End Stage Renal Disease, Chronic Kidney Disease (ESRF; HD T, TH, SA) Denies: HIV, Kidney Stones, Pulmonary Embolism, Sleep Apnea Surgical History: (x3) - [facility] Procedures ASSISTANCE WITH RESPIRATORY VENTILATION, 24-96 HRS, CPAP (03/19/15) ASSISTANCE WITH RESPIRATORY VENTILATION, <24 HRS, CPAP (05/31/15) CONTINUOUS INVASIVE MECHANICAL VENTILATION <96 CONSEC HRS (07/13/13) HEMODIALYSIS (08/25/14) INJECT/INFUSE NEC (04/03/14) NON-INVASIVE MECHANICAL VENTILATION (08/25/14) PERFORMANCE OF URINARY FILTRATION, MULTIPLE (06/21/16) PERFORMANCE OF URINARY FILTRATION, SINGLE (07/25/16) VACCINATION NEC (01/01/14) VENOUS CATHETERIZATION NEC (07/13/13) Family History: States: No Known Family Hx - Social History Hx Alcohol Use: No Hx Substance Use: No - Immunization History Hx Tetanus Toxoid Vaccination: No Hx Influenza Vaccination: Yes Hx Pneumococcal Vaccination: Yes Review Of Systems Except As Marked, All Systems Reviewed And Found Negative. Eyes: Negative for: Vision Change Gastrointestinal: Negative for: Vomiting Musculoskeletal: Positive for: Hand Pain (right hand and wrist injury) Neurological: Positive for: Other (head injury) Physical Exam - Physical Exam Appears: Non-toxic Skin: Warm, Dry, Ecchymosis (small ecchymosis noted to right forehead) Head: Normacephalic Eye(s): bilateral: Normal Inspection, PERRL, EOMI Neck: Normal ROM, Supple Chest: Symmetrical Cardiovascular: Rhythm Regular Respiratory: Normal Breath Sounds Extremity: Normal ROM, Swelling (mild swelling and tenderness to right wrist) Neurological/Psych: Oriented x3, Normal Speech, Normal Cognition, Normal Motor, Normal Sensation ED Course And Treatment O2 Sat by Pulse Oximetry: 100 (RA) Pulse Ox Interpretation: Normal - CT Scan/US CT Head Other Rad Studies (CT/US): Read By Radiologist, Radiology Report Reviewed CT/US Interpretation: FINDINGS: Brain: There is mild diffuse cerebral atrophy present, consistent with this patient's age. There is mild. diffuse heterogeneity of the white matter attenuation, consistent with chronic white matter ischemic. changes. No hemorrhage. Ventricles: The ventricular system demonstrates mild diffuse compensatory enlargement. Bones/joints: Unremarkable. No acute fracture. Soft tissues: Unremarkable. Sinuses: There is diffuse mucoperiosteal thickening in the ethmoid and right maxillary sinuses, . consistent with chronic sinusitis. Mastoid air cells: Unremarkable as visualized. No mastoid effusion. IMPRESSION: Age-related atrophy and chronic white matter ischemic changes, with no evidence of an acute. intracranial abnormality. Chronic sinusitis Medical Decision Making Medical Decision Making: Plan: -- CT Head -- XR Right wrist -- XR Right hand Disposition Counseled Patient/Family Regarding: Diagnosis - Disposition Referrals: [facility] [Outside] Jaleel Mandujano III, MD [Staff Provider] - Disposition: HOME/ ROUTINE Disposition Time: 02:12 Condition: STABLE Prescriptions: traMADol/Acetaminophen [Ultracet 325 MG-37.5 MG] 1 tab PO Q4 #20 tab Instructions: Wrist Fracture (DC), Minor Head Injury (DC) Forms: [facility] (Icelandic), Gen Discharge Inst Romanian Print Language: ETHIOPIAN - POA Present On Arrival: None - Clinical Impression Clinical Impression: Wrist fracture, Head injury - Scribe Statement The provider has reviewed the documentation as recorded by the Alex Duong Provider Attestation: All medical record entries made by the Daibjim were at my direction and personally dictated by me. I have reviewed the chart and agree that the record accurately reflects my personal performance of the history, physical exam, medical decision making, and the department course for this patient. I have also personally directed, reviewed, and agree with the discharge instructions and disposition.
[2017-10-04] MEDS ORDERED: Tramadol 25 mg PO ONE (02:34)
[2017-10-04] MEDS ORDERED: Tramadol 25 mg ONE (02:42)
[2017-10-04 02:45] VITALS: BP 158/69; PULSE 80; RESP 20; TEMP 99.1; O2SAT 99
--- NOTE | 2017-10-04 09:00 | CT ---
Date of service: 10/04/2017 PROCEDURE: CT HEAD WITHOUT CONTRAST. HISTORY: injury COMPARISON: None available. TECHNIQUE: Axial computed tomography images were obtained through the head/brain without intravenous contrast. Radiation dose: Total exam DLP = 751.29 mGy-cm. This CT exam was performed using one or more of the following dose reduction techniques: Automated exposure control, adjustment of the mA and/or kV according to patient size, and/or use of iterative reconstruction technique. FINDINGS: HEMORRHAGE: No intracranial hemorrhage. BRAIN: No mass effect or edema. Mild age-appropriate atrophy. Moderate chronic periventricular and patchy deep white matter lucency consistent with age-related microvascular ischemic change. No evidence of acute infarct. VENTRICLES: Unremarkable. No hydrocephalus. CALVARIUM: Unremarkable. PARANASAL SINUSES: Chronic ethmoid, right frontal and right maxillary sinusitis. MASTOID AIR CELLS: Unremarkable as visualized. No inflammatory changes. OTHER FINDINGS: None. IMPRESSION: No no intracranial mass, hemorrhage or evidence of acute infarct. Age related involutional change. Chronic paranasal sinusitis. The preliminary findings for this examination were reported by [facility] at 1:49 a.m. on 10/04/2017. There is concurrence of this report with the preliminary findings.
--- NOTE | 2017-10-04 09:27 | RAD ---
PROCEDURE: Radiographs of the Right Forearm HISTORY: injury COMPARISON: None available. TECHNIQUE: Frontal and lateral views obtained. FINDINGS: BONES: Comminuted distal radial fracture. Minimally displaced ulnar styloid process fracture. JOINT SPACES: Unremarkable. OTHER FINDINGS: None. IMPRESSION: Comminuted distal radial fracture and ulnar styloid process fracture noted.
--- NOTE | 2017-10-04 09:27 | RAD ---
Date of service: 10/04/2017 PROCEDURE: Right Wrist Radiographs. HISTORY: injury COMPARISON: None. FINDINGS: BONES: Comminuted intra-articular impacted fracture distal radius. Intra-articular extension. Nondisplaced ulnar styloid process fracture. No other fracture identified. JOINTS: Radiocarpal and intercarpal articulations are preserved. SOFT TISSUES: Normal. OTHER FINDINGS: None. IMPRESSION: Impacted comminuted intra-articular distal radial fracture. Nondisplaced ulnar styloid process fracture.
== END 2017-10-04 02:47 | disposition home or self-care (01) ==
LOC: C.ER 22:34
DX: S00.83XA Contusion of other part of head, initial encounter (principal); S52.591A Other fractures of lower end of right radius, initial encounter for closed fracture; W19.XXXA Unspecified fall, initial encounter
CPT/HCPCS: 70450; 73090; 73110; 96372; 99285; J1885

== ENCOUNTER 2018-02-14 17:58 | Inpatient (IN) | payer OTHER ==
[2018-02-14 17:58] VITALS: BMI 23.3
[2018-02-14 19:01] LABS: BASO % 0.5 % (0.0-2.0); EOS # 0.2 K/uL (0.0-0.7); EOS % 4.1 % (0.0-4.0); HEMOGLOBIN 10.9 g/dL (11.0-16.0); LYMPH % 17.8 % (20.0-40.0); MEAN CELL VOLUME 95.7 fL (81.0-99.0); MEAN CORPUSCULAR HEMOGLOBIN 30.8 pg (27.0-31.0); MEAN CORPUSCULAR HGB CONC 32.2 g/dL (33.0-37.0); MEAN PLATELET VOLUME 8.7 fL (7.2-11.7); MONO # 0.5 K/uL (0.0-0.8); NEUT % 68.6 % (50.0-75.0); NRBC % 0.1 % (0.0-2.0); RBC 3.54 Mil/uL (3.80-5.20); RED CELL DISTRIBUTION WIDTH 17.4 % (11.5-14.5); WHITE BLOOD COUNT 5.8 K/uL (4.8-10.8)
--- NOTE | 2018-02-14 19:15 | C.PDOC ---
History Of Present Illness 82 year old female who is a dialysis patient presents to the ER with a complaint of SOB and chest pain that began this morning. Patient is due for dialysis tomorrow morning. Denies fever or chills. Chief Complaint (Nursing): Shortness Of Breath History Per: Patient History/Exam Limitations: no limitations Onset/Duration Of Symptoms: Hrs Current Symptoms Are (Timing): Still Present Current Respiratory Medications: See Home Med List Associated Symptoms: Chest Pain, Other (SOB). denies: Fever, Chills Recent travel outside of the [place]: No Past Medical History Reviewed: Historical Data, Nursing Documentation, Vital Signs Vital Signs: Last Vital Signs Temp 98.3 F 02/14/18 18:07 Pulse 87 02/14/18 18:07 Resp 21 02/14/18 18:57 BP 218/80 H 02/14/18 18:07 Pulse Ox 99 02/14/18 18:07 - Medical History PMH: Anemia, CHF, COPD, HTN, Hypercholesterolemia, Hypothyroidism, End Stage Renal Disease, Chronic Kidney Disease (ESRF; HD T, TH, SA) Denies: HIV, Kidney Stones, Pulmonary Embolism, Sleep Apnea Surgical History: (x3) - [facility] Procedures ASSISTANCE WITH RESPIRATORY VENTILATION, 24-96 HRS, CPAP (03/19/15) ASSISTANCE WITH RESPIRATORY VENTILATION, <24 HRS, CPAP (05/31/15) CONTINUOUS INVASIVE MECHANICAL VENTILATION <96 CONSEC HRS (07/13/13) HEMODIALYSIS (08/25/14) INJECT/INFUSE NEC (04/03/14) NON-INVASIVE MECHANICAL VENTILATION (08/25/14) PERFORMANCE OF URINARY FILTRATION, MULTIPLE (06/21/16) PERFORMANCE OF URINARY FILTRATION, SINGLE (07/25/16) VACCINATION NEC (01/01/14) VENOUS CATHETERIZATION NEC (07/13/13) Family History: States: Unknown Family Hx - Social History Hx Alcohol Use: No Hx Substance Use: No - Immunization History Hx Tetanus Toxoid Vaccination: No Hx Influenza Vaccination: Yes Hx Pneumococcal Vaccination: Yes Review Of Systems Constitutional: Negative for: Fever, Chills Cardiovascular: Positive for: Chest Pain. Negative for: Palpitations Respiratory: Positive for: Shortness of Breath. Negative for: Cough Gastrointestinal: Negative for: Nausea, Vomiting, Abdominal Pain Skin: Negative for: Rash Neurological: Negative for: Weakness, Numbness Physical Exam - Physical Exam Appears: Non-toxic, No Acute Distress Skin: Normal Color, Warm, Dry Head: Atraumatic, Normacephalic Eye(s): bilateral: Normal Inspection Oral Mucosa: Moist Neck: Normal, Supple Chest: Symmetrical, No Tenderness Cardiovascular: Rhythm Regular Respiratory: Rales (Bilateral), No Rhonchi, No Wheezing Gastrointestinal/Abdominal: Soft, No Tenderness Extremity: No Pedal Edema Neurological/Psych: Oriented x3, Normal Speech ED Course And Treatment - Laboratory Results Result Diagrams: 02/14/18 18:57 02/14/18 18:57 O2 Sat by Pulse Oximetry: 99 (Room air) Pulse Ox Interpretation: Normal - Radiology CXR: Interpreted by Me, Viewed By Me CXR Interpretation: Yes: Other (CHF) Progress Note: EKG, blood work, and CXR ordered. Disposition Discussed With Dr.: Harjit Bourgeois Doctor Will See Patient In The: Hospital Counseled Patient/Family Regarding: Diagnosis - Disposition Disposition: HOSPITALIZED Disposition Time: 21:12 Condition: STABLE Forms: [facility] ([place]an) - POA Present On Arrival: None - Clinical Impression Clinical Impression: ESRD (end stage renal disease) on dialysis, Dyspnea, CHF (congestive heart failure), Chest pain - Scribe Statement The provider has reviewed the documentation as recorded by the Scribe Justice Laureano All medical record entries made by the Scribe were at my direction and personally dictated by me. I have reviewed the chart and agree that the record accurately reflects my personal performance of the history, physical exam, medical decision making, and the department course for this patient. I have also personally directed, reviewed, and agree with the discharge instructions and disposition.
[2018-02-14 19:30] LABS: ALB/GLOB RATIO 1.2 (1.0-2.1); ALBUMIN 4.4 g/dL (3.5-5.0)
[2018-02-14 19:38] LABS: INR 1.1; PROTHROMBIN TIME 11.6 SECONDS (9.7-12.2)
[2018-02-14 20:09] LABS: TROPONIN I 0.017 ng/mL (0.00-0.120)
--- NOTE | 2018-02-15 03:50 | CP.PCM.HP ---
<Travis Sullivan - Last Filed: 02/15/18 06:32> History of Present Illness - History of Present Illness History of Present Illness: H&P note for Dr Bourgeois cc: Dizziness HPI: Patient is a 82 year old female with pmhx of ESRD on HD TTHS, HTN, hypercholesterolemia, hypothyroidism that came to the ED after feeling dizzy and feeling like passing out while she was at an adult day care in the afternoon. As per daughter at bedside, a nurse at daycare took patient pressure and it was agnieszka vated. Patient states she felt short of breath and chest pain. Patient did not lose consciousness and did not experience any trauma. Patient admits to feeling tired more often and having difficulty going up the stairs to the second floor where she lives since a week ago. Patient experiences CP with shortness of breath when walking. Patient admits to going to the bathroom to urinate about 7 times but having very little urine output. Patient sleeps with 2 pillows at night time. Patient admits to decrease appetite. Denies fever, chills, headaches, nausea, vomiting, diarrhea, constipation, extremity swelling, changes in vision, or urinary symptoms PMD: Dr Nesbitt All: denies Pmhx: as stated in HPI Shx: (30 years ago) Meds: from chart - Levothyroxine 35mg PO, Coreg 3.15 mg PO QD, Lipitor 10mg PO QD Fhx: SD (father) Soch hx : denies alcohol, tobacco or illicit drug use Present on Admission - Present on Admission Any Indicators Present on Admission: No Review of Systems - Review of Systems All systems: reviewed and no additional remarkable complaints except Review of Systems: As stated in HPI Past Patient History - Infectious Disease Hx of Infectious Diseases: None - Tetanus Immunizations Tetanus Immunization: Unknown - Past Medical History & Family History Past Medical History?: Yes - Past Social History Smoking Status: Never Smoked - CARDIAC Hx Congestive Heart Failure: Yes Hx Hypercholesterolemia: Yes Hx Hypertension: Yes - PULMONARY Hx Chronic Obstructive Pulmonary Disease (COPD): Yes Hx Pulmonary Embolism: No Hx Sleep Apnea: No - NEUROLOGICAL Hx Neurological Disorder: No - HEENT Hx HEENT Problems: No - RENAL Hx Chronic Kidney Disease: Yes (ESRF; HD T, TH, SA) Hx Kidney Stones: No - ENDOCRINE/METABOLIC Hx Hypothyroidism: Yes - HEMATOLOGICAL/ONCOLOGICAL Hx Anemia: Yes Hx Human Immunodeficiency Virus (HIV): No - INTEGUMENTARY Hx Dermatological Problems: No - MUSCULOSKELETAL/RHEUMATOLOGICAL Hx Falls: No - GASTROINTESTINAL Hx Gastrointestinal Disorders: No - GENITOURINARY/GYNECOLOGICAL Hx Genitourinary Disorders: No - PSYCHIATRIC Hx Substance Use: No - SURGICAL HISTORY Hx Surgeries: Yes Hx Arteriovenous Shunt: Yes Hx Vascular Access Device: Yes (Right arm Av fistula) - ANESTHESIA Hx Anesthesia: Yes Hx Anesthesia Reactions: No Meds Allergies/Adverse Reactions: Allergies Allergy/AdvReac Type Severity Reaction Status Date / Time No Known Allergies Allergy Verified 02/14/18 18:11 Physical Exam - Constitutional Appears: Non-toxic, No Acute Distress - Head Exam Head Exam: ATRAUMATIC, NORMAL INSPECTION, NORMOCEPHALIC - Eye Exam Eye Exam: EOMI, Normal appearance Pupil Exam: NORMAL ACCOMODATION, PERRL - ENT Exam ENT Exam: Mucous Membranes Moist, Normal Exam - Neck Exam Neck exam: Positive for: Full Rom, Normal Inspection. Negative for: Lymphadenopathy, Tenderness, Thyromegaly - Respiratory Exam Respiratory Exam: Clear to Auscultation Bilateral, NORMAL BREATHING PATTERN. absent: Rales, Rhonchi, Wheezes, Respiratory Distress Additional comments: mild crackles on left lower lobe - Cardiovascular Exam Cardiovascular Exam: REGULAR RHYTHM, +S1, +S2, Systolic Murmur. absent: Tachycardia - GI/Abdominal Exam GI & Abdominal Exam: Normal Bowel Sounds, Soft. absent: Distended - Extremities Exam Extremities exam: Positive for: full ROM, normal inspection. Negative for: calf tenderness, joint swelling, pedal edema, tenderness - Back Exam Back exam: FULL ROM, NORMAL INSPECTION. absent: rash noted, tenderness - Neurological Exam Neurological exam: Alert, CN II-XII Intact, Oriented x3, Reflexes Normal - Psychiatric Exam Psychiatric exam: Normal Affect, Normal Mood - Skin Skin Exam: Dry, Intact, Normal Color, Warm Results - Vital Signs Recent Vital Signs: Last Vital Signs Temp 97.3 F L 02/15/18 01:10 Pulse 63 02/15/18 01:34 Resp 19 02/15/18 01:34 BP 125/38 L 02/15/18 01:34 Pulse Ox 97 02/15/18 01:34 - Labs Result Diagrams: 02/14/18 18:57 02/14/18 18:57 Labs: Laboratory Results - last 24 hr 02/14/18 02/14/18 02/14/18 18:57 18:57 19:17 WBC 5.8 RBC 3.54 L Hgb 10.9 L Hct 33.9 L MCV 95.7 MCH 30.8 MCHC 32.2 L RDW 17.4 H Plt Count 165 MPV 8.7 Neut % (Auto) 68.6 Lymph % (Auto) 17.8 L [place] % (Auto) 9.0 Eos % (Auto) 4.1 H Baso % (Auto) 0.5 Neut # (Auto) 4.0 Lymph # (Auto) 1.0 [place] # (Auto) 0.5 Eos # (Auto) 0.2 Baso # (Auto) 0.0 PT 11.6 INR 1.1 APTT 30 Sodium 137 Potassium 4.9 Chloride 94 L Carbon Dioxide 28 Anion Gap 20 BUN 59 H Creatinine 6.9 H Est GFR ( Amer) 7 Est GFR (Non-Af Amer) 6 Random Glucose 152 H Calcium 10.0 Phosphorus 2.9 Magnesium 2.3 Total Bilirubin 0.8 AST 35 ALT 25 Alkaline Phosphatase 138 H Troponin I NT-Pro-B Natriuret Pep Total Protein 8.2 Albumin 4.4 Globulin 3.8 Albumin/Globulin Ratio 1.2 02/14/18 02/15/18 19:18 01:35 WBC RBC Hgb Hct MCV MCH MCHC RDW Plt Count MPV Neut % (Auto) Lymph % (Auto) [place] % (Auto) Eos % (Auto) Baso % (Auto) Neut # (Auto) Lymph # (Auto) [place] # (Auto) Eos # (Auto) Baso # (Auto) PT INR APTT Sodium Potassium Chloride Carbon Dioxide Anion Gap BUN Creatinine Est GFR ( Amer) Est GFR (Non-Af Amer) Random Glucose Calcium Phosphorus Magnesium Total Bilirubin AST ALT Alkaline Phosphatase Troponin I 0.0170 0.0240 NT-Pro-B Natriuret Pep 16307 H Total Protein Albumin Globulin Albumin/Globulin Ratio Assessment & Plan - Assessment and Plan (Free Text) Plan: dyspnea/chest pain/dizziness - possible due to fluid overload - r/o CHF vs SD - Chest Xray - CHF, f/u official report - Troponin x 1 ED : negative - EKG: negative - Pro-BNP : elevated (11957) - troponin x2 - EKG x 2 ESRD on HD - Possible fluid overloaded - HD x 1 in ED - will reassess pt after HD - Nephrology consult- Dr Rob Culp, help is appreciated - I/O and Daily weight - Am labs hx HTN - Continue home meds Coreg 3.125mg PO QD - confirm if patient is taking amlodipine hx Hypothryoridsm - Continue Levothryoxine 24mcg PO QD hx of cholesterol - Crestor 2.5 mg PO HS Prophylaxis - SCDS - Renal diet with fluid restriction @ 1500ml Plan discussed with Dr Christelle Sullivan PGY-1 <Harjit Bourgeois - Last Filed: 02/15/18 19:06> Results - Vital Signs Recent Vital Signs: Last Vital Signs Temp 97.2 F L 02/15/18 16:13 Pulse 75 02/15/18 16:13 Resp 20 02/15/18 16:13 BP 144/58 L 02/15/18 16:13 Pulse Ox 100 02/15/18 16:13 - Labs Result Diagrams: 02/15/18 06:57 02/15/18 06:57 Labs: Laboratory Results - last 24 hr 02/14/18 02/14/18 02/14/18 18:57 18:57 19:17 WBC 5.8 RBC 3.54 L Hgb 10.9 L Hct 33.9 L MCV 95.7 MCH 30.8 MCHC 32.2 L RDW 17.4 H Plt Count 165 MPV 8.7 Neut % (Auto) 68.6 Lymph % (Auto) 17.8 L [place] % (Auto) 9.0 Eos % (Auto) 4.1 H Baso % (Auto) 0.5 Neut # (Auto) 4.0 Lymph # (Auto) 1.0 [place] # (Auto) 0.5 Eos # (Auto) 0.2 Baso # (Auto) 0.0 PT 11.6 INR 1.1 APTT 30 Sodium 137 Potassium 4.9 Chloride 94 L Carbon Dioxide 28 Anion Gap 20 BUN 59 H Creatinine 6.9 H Est GFR ( Amer) 7 Est GFR (Non-Af Amer) 6 Random Glucose 152 H Calcium 10.0 Phosphorus 2.9 Magnesium 2.3 Total Bilirubin 0.8 AST 35 ALT 25 Alkaline Phosphatase 138 H Troponin I NT-Pro-B Natriuret Pep Total Protein 8.2 Albumin 4.4 Globulin 3.8 Albumin/Globulin Ratio 1.2 02/14/18 02/15/18 02/15/18 19:18 01:35 06:57 WBC 4.6 L RBC 3.71 L Hgb 11.4 Hct 35.0 MCV 94.5 MCH 30.8 MCHC 32.6 L RDW 17.1 H Plt Count 153 MPV 8.2 Neut % (Auto) 63.6 Lymph % (Auto) 23.2 [place] % (Auto) 8.5 Eos % (Auto) 3.9 Baso % (Auto) 0.8 Neut # (Auto) 2.9 Lymph # (Auto) 1.1 [place] # (Auto) 0.4 Eos # (Auto) 0.2 Baso # (Auto) 0.0 PT INR APTT Sodium Potassium Chloride Carbon Dioxide Anion Gap BUN Creatinine Est GFR ( Amer) Est GFR (Non-Af Amer) Random Glucose Calcium Phosphorus Magnesium Total Bilirubin AST ALT Alkaline Phosphatase Troponin I 0.0170 0.0240 NT-Pro-B Natriuret Pep 60224 H Total Protein Albumin Globulin Albumin/Globulin Ratio 02/15/18 06:57 WBC RBC Hgb Hct MCV MCH MCHC RDW Plt Count MPV Neut % (Auto) Lymph % (Auto) [place] % (Auto) Eos % (Auto) Baso % (Auto) Neut # (Auto) Lymph # (Auto) [place] # (Auto) Eos # (Auto) Baso # (Auto) PT INR APTT Sodium 137 Potassium 4.0 Chloride 97 L Carbon Dioxide 28 Anion Gap 16 BUN 31 H Creatinine 4.7 H Est GFR ( Amer) 11 Est GFR (Non-Af Amer) 9 Random Glucose 148 H Calcium 8.9 Phosphorus Magnesium Total Bilirubin 0.8 AST 23 ALT 25 Alkaline Phosphatase 123 Troponin I 0.0260 NT-Pro-B Natriuret Pep Total Protein 7.7 Albumin 4.1 Globulin 3.6 Albumin/Globulin Ratio 1.1 Assessment & Plan - Date & Time Date: 02/15/18 (I have seen and examined the patient. I agree with the findings and plan of care as documented by Dr. Sullivan. Patient with chest pain with associated dyspnea. CHF. History of ESRD. Consult to nephro. Dialysis at admission. ROMIx3 with EKG. 2D Echo. History of hypertension and hypothroidism. Continue home meds. Monitor for acute changes.) Time: 19:04 Attending/Attestation - Attestation I have personally seen and examined this patient.: Yes I have fully participated in the care of the patient.: Yes I have reviewed all pertinent clinical information: Yes
[2018-02-15 07:04] LABS: BASO % 0.8 % (0.0-2.0); EOS # 0.2 K/uL (0.0-0.7); EOS % 3.9 % (0.0-4.0); HEMOGLOBIN 11.4 g/dL (11.0-16.0); LYMPH # 1.1 K/uL (1.0-4.3); LYMPH % 23.2 % (20.0-40.0); MEAN CELL VOLUME 94.5 fL (81.0-99.0); MEAN CORPUSCULAR HEMOGLOBIN 30.8 pg (27.0-31.0); MEAN CORPUSCULAR HGB CONC 32.6 g/dL (33.0-37.0); MEAN PLATELET VOLUME 8.2 fL (7.2-11.7); MONO # 0.4 K/uL (0.0-0.8); MONO % 8.5 % (0.0-10.0); NEUT # 2.9 K/uL (1.8-7.0); NEUT % 63.6 % (50.0-75.0); NRBC % 0.2 % (0.0-2.0); RBC 3.71 Mil/uL (3.80-5.20); RED CELL DISTRIBUTION WIDTH 17.1 % (11.5-14.5); WHITE BLOOD COUNT 4.6 K/uL (4.8-10.8)
[2018-02-15 07:46] LABS: ALB/GLOB RATIO 1.1 (1.0-2.1); ALBUMIN 4.1 g/dL (3.5-5.0); CALCIUM 8.9 mg/dl (8.6-10.4)
[2018-02-15 08:18] LABS: TROPONIN I 0.026 ng/mL (0.00-0.120)
--- NOTE | 2018-02-15 08:45 | RAD ---
Date of service: 02/14/2018 HISTORY: sob COMPARISON: 07/24/2016 chest x-ray. FINDINGS: LUNGS: Lung volumes lower limits of normal.-the chin in its soft tissues are obscuring each apex. Previously noted was biapical pleural parenchymal pathology here. Assessing this for any interval changes at each lung base is now impeded because of the chin soft tissue obscuration. Right subclavian brachiocephalic vascular stent in place. There is a interval additional elongation of the stent to the original stent now noted. Lung volumes probably prior lung volumes appeared increased compatible with probable COPD background. Currently this and volumes are less now than before. Hypoventilatory effects is inferred. PLEURA: Trace bilateral pleural effusions and/or pleural thickening suggested. The blunting on the right now appears less than before., No pneumothorax CARDIOVASCULAR: There is presence of aortic atherosclerotic calcification on x-ray. Mild cardiomegaly .. mild pulmonary venous congestion-appears similar OSSEOUS STRUCTURES: No significant abnormalities. VISUALIZED UPPER ABDOMEN: Normal. OTHER FINDINGS: None. IMPRESSION: Limited exam regarding each lung apex assessment because of chin obscuration. Interval elongation surgical addition to the prior pre existing right subclavian vascular stent. Mild cardiomegaly and mild pulmonary venous congestion inferred. Trace bilateral pleural effusions and/or pleural thickening suggested. The blunting on the right now appears less than before., No pneumothorax
[2018-02-15] MEDS ORDERED: Levothyroxine 25 MCG TAB PO SCH (10:00)
--- NOTE | 2018-02-15 10:45 | CP.PCM.PN ---
Subjective - Date & Time of Evaluation Date of Evaluation: 02/15/18 Time of Evaluation: 10:43 - Subjective Subjective: PGY-1 Medicine Progress Note for Dr. Ch's service Patient seen and examined at bedside. Patient states she feels dizzy at times. Patient reports no chest pain or difficulty breathing. Patient denies fevers, chills, cough, n/v, constipation or diarrhea, and dysuria. Objective - Vital Signs/Intake and Output Vital Signs (last 24 hours): Temp Pulse Resp BP Pulse Ox 97.3 F L 69 13 160/58 H 99 02/15/18 01:10 02/15/18 07:50 02/15/18 07:50 02/15/18 07:50 02/15/18 07:50 - Medications Medications: Current Medications Carvedilol (Coreg) 3.125 mg PO DAILY [facility] Last Admin: 02/15/18 09:15 Dose: 3.125 mg Heparin Sodium (Porcine) (Heparin) 2,000 units IVP TTS [facility] Levothyroxine Sodium (Synthroid) 25 mcg PO DAILY [facility] Last Admin: 02/15/18 09:15 Dose: 25 mcg Rosuvastatin Calcium (Crestor) 2.5 mg PO HS [facility] Vitamin B Complex/Vit C/Folic Acid (Nephro-Dana) 1 tab PO 0800 [facility] - Labs Labs: 02/15/18 06:57 02/15/18 06:57 PT 11.6 SECONDS (9.7-12.2) 02/14/18 19:17 INR 1.1 02/14/18 19:17 APTT 30 SECONDS (21-34) 02/14/18 19:17 - Constitutional Appears: Non-toxic, No Acute Distress - Head Exam Head Exam: NORMAL INSPECTION, NORMOCEPHALIC - Eye Exam Eye Exam: EOMI, Normal appearance. absent: Nystagmus, Scleral icterus - ENT Exam ENT Exam: Mucous Membranes Dry - Respiratory Exam Respiratory Exam: Rales, NORMAL BREATHING PATTERN. absent: Accessory Muscle Use, Chest Wall Tenderness, Decreased Breath Sounds, Rhonchi, Wheezes - Cardiovascular Exam Cardiovascular Exam: REGULAR RHYTHM, +S1, +S2. absent: Tachycardia - GI/Abdominal Exam GI & Abdominal Exam: Soft, Normal Bowel Sounds. absent: Distended, Firm, Guarding, Rigid, Tenderness - Extremities Exam Extremities Exam: Normal Inspection. absent: Calf Tenderness, Pedal Edema - Neurological Exam Neurological Exam: Alert, Awake, Oriented x3 - Psychiatric Exam Psychiatric exam: Normal Affect, Normal Mood - Skin Skin Exam: Intact, Normal Color Assessment and Plan - Assessment and Plan (Free Text) Assessment: Patient is an 82 yo female w/ past medical history of ESRD o HD (TTHs), HTN, Hypercholesterolemia, and hypothyroidism admitted for feeling dizzy, sob, and chest pain. Chest xray and BNP were suggestive of fluid overload which prompted emergent dialysis overnight. Patient received dialysis in early AM today and nephrology: Dr. Culp (her office rental clerk) were consulted. Plan: Dizziness/Shortness of Breath likely 2/2 to fluid overload to do CKD stage 5 (unsure if patient had Wednesday scheduled dialysis session at [facility]) Nephrology Consulted: Dr. Culp- emergent dialysis session in AM; appreciate further recommendations EKG: negative for NSTEMI or STEMI Chest Xray- mild pulmonary venous congestion inferred; trace bilateral pleural effusions and/or pleural thickening Echo pro-BNP: 80879 on admission Troponin x 3 negative ESRD on HD TTHS schedule Patient had dialysis in early AM Vitamin B complex/Vit C 1 tab po HTN Coreg 3.125mg po daily Vasotec 2.5mg po daily Hypercholesterolemia Crestor 2.5 mg po HS magdy Hypothyroidism Synthroid 25mcg po daily magdy PPX DVT ppx: Heparin 5000 units sc q8 magdy GI ppx: not indicated at this time PGY-1 [facility] discussed with Dr. Braden
[2018-02-15] MEDS ORDERED: Pneumococcal 23-Valent Vaccine IM ONE (11:05)
--- NOTE | 2018-02-15 12:57 | CP.PCM.CON ---
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 Continue with Nephrovite 1 tab/day. PRBC as needed for anemia. not on NIRMAL with dialysis as last Hb 11.4 Continue with phos binders BP control with meds as ordered. Patient on RAAS sayra Glycemic control, Dialysis consistent diet Further work up/management as per primary team Dose meds/antibiotics (if needed) for ESRD status. Avoid fleets enema/magnesium based laxatives. pt educated to limite fluid gain. need Low Na diet. she admits to drinking too much coffee/liquids Thanks for allowing me to participate in care of your patient. Will follow patient with you. Please call if any Qs Dr Rome Murrell Office: [phone] Chief Complaint;SOB HPI: Pt is a 82 Fwith hx of ESRD on hemodialysis (TTS) via AVF , last dialysis yesterday, chronic anemia, hyperphosphatemia, secondary hyperparathyroidism, ypertension presented with complaints of SOB. Renal consult requested for ESRD management. she feels better now. got HD yesterday for fluif overload ROS: Cardiovascular: No chest pain. Pulmonary: No shortness of breath now Gastrointestinal: denies abdominal pain No nausea. No vomiting. Genitourinary: No pain while urinating. Denies blood in urine. All other negative but limited except as mentioned in HPI Physical Examination: General Appearance: Comfortable, in no acute respiratory distress, co-operative . Vitals reviewed and noted as below Head; Atraumatic, normocephalic ENT: no ulcers no thrush. Tongue is midline. Oropharynx: no rash or ulcers. EYES: Pupils are equal, round and reactive to light accommodation. Eye muscles and extraocular movement intact. Sclera is anicteric. Neck; supple no lymphadenopathy, no thyromegaly or bruit Lungs: Normal respiratory rate/effort. Breath sounds bilateral equal and clear Heart: Normal rate. s1s2 normal. No rub or gallop. Extremities: no edema. No varicose veins Neurological: Patient is alert, awake and oriented to person, place and time. No focal deficit. Strength bilateral appropriate and equal Skin: Warm and dry. Normal turgor. No rash. Palpitation: Normal elasticity for age Abdomen: Abdomen is soft. Bowel sounds +. There is no abdominal tenderness, no guarding/rigidity or organomegaly Psych: lackl insight and normal affect/mood MSK: no joint tenderness or swelling. Digits and nails normal, no deformity : kidney or bladder not palpable Access: AVF Labs/imaging reviewed. Past medical history, past surgical history, family history, social history, allergy reviewed and noted as below Family Hx: no hx of CKD. Non contributory Past Patient History - Infectious Disease Hx of Infectious Diseases: None - Tetanus Immunizations Tetanus Immunization: Unknown - Past Medical History & Family History Past Medical History?: Yes - Past Social History Smoking Status: Never Smoked - CARDIAC Hx Cardiac Disorders: Yes Hx Congestive Heart Failure: Yes Hx Hypercholesterolemia: Yes Hx Hypertension: Yes - PULMONARY Hx Respiratory Disorders: Yes Hx Chronic Obstructive Pulmonary Disease (COPD): Yes Hx Pulmonary Embolism: No Hx Sleep Apnea: No - NEUROLOGICAL Hx Neurological Disorder: No - HEENT Hx HEENT Problems: No - RENAL Hx Chronic Kidney Disease: Yes (ESRF; HD T, TH, SA) Hx Kidney Stones: No - ENDOCRINE/METABOLIC Hx Endocrine Disorders: Yes Hx Hypothyroidism: Yes - HEMATOLOGICAL/ONCOLOGICAL Hx Blood Disorders: Yes Hx Anemia: Yes Hx Human Immunodeficiency Virus (HIV): No - INTEGUMENTARY Hx Dermatological Problems: No - MUSCULOSKELETAL/RHEUMATOLOGICAL Hx Musculoskeletal Disorders: No Hx Falls: No - GASTROINTESTINAL Hx Gastrointestinal Disorders: No - GENITOURINARY/GYNECOLOGICAL Hx Genitourinary Disorders: No - PSYCHIATRIC Hx Psychophysiologic Disorder: No Hx Substance Use: No - SURGICAL HISTORY Hx Surgeries: Yes Hx Arteriovenous Shunt: Yes Hx Vascular Access Device: Yes (Right arm Av fistula) - ANESTHESIA Hx Anesthesia: Yes Hx Anesthesia Reactions: No Meds Allergies/Adverse Reactions: Allergies Allergy/AdvReac Type Severity Reaction Status Date / Time No Known Allergies Allergy Verified 02/14/18 18:11 - Medications Medications: Current Medications Carvedilol (Coreg) 3.125 mg PO DAILY [facility] Last Admin: 02/15/18 09:15 Dose: 3.125 mg Heparin Sodium (Porcine) (Heparin) 2,000 units IVP TTS [facility] Heparin Sodium (Porcine) (Heparin) 5,000 units SC Q8 [facility] Levothyroxine Sodium (Synthroid) 25 mcg PO DAILY [facility] Last Admin: 02/15/18 09:15 Dose: 25 mcg Rosuvastatin Calcium (Crestor) 2.5 mg PO HS [facility] Vitamin B Complex/Vit C/Folic Acid (Nephro-Dana) 1 tab PO 0800 [facility] Results - Vital Signs Recent Vital Signs: Last Vital Signs Temp 98 F 02/15/18 11:30 Pulse 70 02/15/18 11:30 Resp 20 02/15/18 11:30 BP 156/58 H 02/15/18 11:30 Pulse Ox 98 02/15/18 10:03 - Labs Result Diagrams: 02/15/18 06:57 02/15/18 06:57 Labs: Laboratory Results - last 24 hr 02/14/18 02/14/18 02/14/18 18:57 18:57 19:17 WBC 5.8 RBC 3.54 L Hgb 10.9 L Hct 33.9 L MCV 95.7 MCH 30.8 MCHC 32.2 L RDW 17.4 H Plt Count 165 MPV 8.7 Neut % (Auto) 68.6 Lymph % (Auto) 17.8 L [place] % (Auto) 9.0 Eos % (Auto) 4.1 H Baso % (Auto) 0.5 Neut # (Auto) 4.0 Lymph # (Auto) 1.0 [place] # (Auto) 0.5 Eos # (Auto) 0.2 Baso # (Auto) 0.0 PT 11.6 INR 1.1 APTT 30 Sodium 137 Potassium 4.9 Chloride 94 L Carbon Dioxide 28 Anion Gap 20 BUN 59 H Creatinine 6.9 H Est GFR ( Amer) 7 Est GFR (Non-Af Amer) 6 Random Glucose 152 H Calcium 10.0 Phosphorus 2.9 Magnesium 2.3 Total Bilirubin 0.8 AST 35 ALT 25 Alkaline Phosphatase 138 H Troponin I NT-Pro-B Natriuret Pep Total Protein 8.2 Albumin 4.4 Globulin 3.8 Albumin/Globulin Ratio 1.2 02/14/18 02/15/18 02/15/18 19:18 01:35 06:57 WBC 4.6 L RBC 3.71 L Hgb 11.4 Hct 35.0 MCV 94.5 MCH 30.8 MCHC 32.6 L RDW 17.1 H Plt Count 153 MPV 8.2 Neut % (Auto) 63.6 Lymph % (Auto) 23.2 [place] % (Auto) 8.5 Eos % (Auto) 3.9 Baso % (Auto) 0.8 Neut # (Auto) 2.9 Lymph # (Auto) 1.1 [place] # (Auto) 0.4 Eos # (Auto) 0.2 Baso # (Auto) 0.0 PT INR APTT Sodium Potassium Chloride Carbon Dioxide Anion Gap BUN Creatinine Est GFR ( Amer) Est GFR (Non-Af Amer) Random Glucose Calcium Phosphorus Magnesium Total Bilirubin AST ALT Alkaline Phosphatase Troponin I 0.0170 0.0240 NT-Pro-B Natriuret Pep 87496 H Total Protein Albumin Globulin Albumin/Globulin Ratio 02/15/18 06:57 WBC RBC Hgb Hct MCV MCH MCHC RDW Plt Count MPV Neut % (Auto) Lymph % (Auto) [place] % (Auto) Eos % (Auto) Baso % (Auto) Neut # (Auto) Lymph # (Auto) [place] # (Auto) Eos # (Auto) Baso # (Auto) PT INR APTT Sodium 137 Potassium 4.0 Chloride 97 L Carbon Dioxide 28 Anion Gap 16 BUN 31 H Creatinine 4.7 H Est GFR ( Amer) 11 Est GFR (Non-Af Amer) 9 Random Glucose 148 H Calcium 8.9 Phosphorus Magnesium Total Bilirubin 0.8 AST 23 ALT 25 Alkaline Phosphatase 123 Troponin I 0.0260 NT-Pro-B Natriuret Pep Total Protein 7.7 Albumin 4.1 Globulin 3.6 Albumin/Globulin Ratio 1.1
[2018-02-15] MEDS: Rosuvastatin Calcium 2.5 mg Tab PO SCH (21:15)
--- NOTE | 2018-02-16 02:55 | CON ---
DATE: 02/15/2018 CARDIOLOGY CONSULT REASON FOR CONSULTATION: Volume overload. HISTORY OF PRESENT ILLNESS: The patient is an 82-year-old female who has end-stage renal disease on hemodialysis, presented yesterday because of volume overload with an emergency dialysis yesterday, and today, underwent another session of dialysis as part of her routine schedule. I evaluated the patient after her second dialysis that was performed today, and the patient denies any shortness of breath or chest pain. SOCIAL HISTORY: Nonsmoker, nondrinker. REVIEW OF SYSTEMS: No productive cough. No fever. No nausea or vomiting. PAST MEDICAL HISTORY: COPD, hypertension, anemia, CHF, and hypothyroidism. PHYSICAL EXAMINATION: GENERAL: The patient is an elderly female who does not appear to be in acute distress. VITAL SIGNS: Blood pressure 144/58, heart rate 75, temperature 97.2, and respirations 20. HEENT: Normocephalic. CHEST: Minimal rhonchi. HEART: S1, S2 regular. ABDOMEN: Soft. EXTREMITIES: No edema. IMAGING: Chest x-ray revealed cardiomegaly with moderate CHF. However, interstitial lung disease cannot be completely ruled out. LABORATORY DATA: Today's hemoglobin and hematocrit 11.4 and 35, white count 4.6, platelet count 153,000. SMA-7: Sodium 137, potassium 4, chloride 97, CO2 of 28, glucose 148, BUN 31, creatinine 4.7. Three sets of troponins are negative. Pro-BNP is 17,100. PT, PTT, INR are within normal limits. No EKG is found in either the chart or the medical database so far. The most recent EKG on record was for 07/2016 which revealed sinus rhythm . Echocardiographic study from 06/2016 revealed ejection fraction in the range of 40-45%. Moderate aortic insufficiency and [id number] pulmonary hypertension. ASSESSMENT: 1. Status post volume overload. 2. Systolic heart failure. 3. Moderate mitral and moderate aortic insufficiencies. 4. [id number] pulmonary hypertension. 5. End-stage renal disease on hemodialysis. RECOMMENDATIONS: Continue Coreg 3.125 mg daily, Crestor 2.5 mg once a day, Synthroid 25 mcg once a day. We will obtain a followup echocardiographic study. Start aspirin 81 mg once a day and enalapril 2.5 mg daily. Wilbert Campos MD [facility] # [id number]
[2018-02-16] MEDS: Levothyroxine 25 MCG TAB PO SCH (05:40)
[2018-02-16 07:31] LABS: BASO % 0.7 % (0.0-2.0); EOS # 0.3 K/uL (0.0-0.7); EOS % 7.1 % (0.0-4.0); HEMOGLOBIN 10.5 g/dL (11.0-16.0); LYMPH # 1.6 K/uL (1.0-4.3); MEAN CORPUSCULAR HEMOGLOBIN 31.6 pg (27.0-31.0); MEAN CORPUSCULAR HGB CONC 32.7 g/dL (33.0-37.0); MEAN PLATELET VOLUME 8.5 fL (7.2-11.7); MONO # 0.5 K/uL (0.0-0.8); MONO % 10.7 % (0.0-10.0); NEUT # 2.2 K/uL (1.8-7.0); NEUT % 47.5 % (50.0-75.0); NRBC % 0.1 % (0.0-2.0); RBC 3.33 Mil/uL (3.80-5.20); RED CELL DISTRIBUTION WIDTH 17.3 % (11.5-14.5); WHITE BLOOD COUNT 4.6 K/uL (4.8-10.8)
[2018-02-16 07:35] LABS: MEAN CELL VOLUME 96.7 fL (81.0-99.0)
[2018-02-16 07:51] LABS: ALB/GLOB RATIO 1.2 (1.0-2.1); ALBUMIN 3.9 g/dL (3.5-5.0); CALCIUM 8.2 mg/dl (8.6-10.4)
[2018-02-16] MEDS: Multivitamin Vitamin B Complex (Nephro-Vite) Tab PO SCH ×2 (09:20→10:24)
--- NOTE | 2018-02-16 15:52 | CP.PCM.PN ---
Subjective - Date & Time of Evaluation Date of Evaluation: 02/16/18 Time of Evaluation: 15:52 - Subjective Subjective: Nephrology Consultation Note: Assessment: Stable fluid overload Hypertensive Chronic Kidney Disease (I12.0) End stage renal disease (N18.6) dependence on hemodialysis (Z99.2) (TTS) via AVF Anemia (D64.9), Hyperphosphatemia (E83.39), Secondary Hyperparathyroidism (E21.1), HTN (I12.0) Plan: Will plan for HD tomorrow as ordered. Continue with Nephrovite 1 tab/day. PRBC as needed for anemia. not on NIRMAL with dialysis as last Hb 11.4 Continue with phos binders BP control with meds as ordered. Patient on RAAS sayra resume norvasc 10 Glycemic control, Dialysis consistent diet Further work up/management as per primary team Dose meds/antibiotics (if needed) for ESRD status. Avoid fleets enema/magnesium based laxatives. pt educated to limite fluid gain. need Low Na diet. she admits to drinking too much coffee/liquids Thanks for allowing me to participate in care of your patient. Will follow patient with you. Please call if any Qs Dr Rome Murrell Office: [phone] Chief Complaint;SOB HPI: Pt is a 82 Fwith hx of ESRD on hemodialysis (TTS) via AVF , last dialysis yesterday, chronic anemia, hyperphosphatemia, secondary hyperparathyroidism, ypertension presented with complaints of SOB. Renal consult requested for ESRD management. she feels better now. got HD yesterday for fluif overload ROS: Cardiovascular: No chest pain. Pulmonary: No shortness of breath now Gastrointestinal: denies abdominal pain No nausea. No vomiting. Genitourinary: No pain while urinating. Denies blood in urine. All other negative but limited except as mentioned in HPI Physical Examination: General Appearance: Comfortable, in no acute respiratory distress, co-operative . Vitals reviewed and noted as below Head; Atraumatic, normocephalic ENT: no ulcers no thrush. Tongue is midline. Oropharynx: no rash or ulcers. EYES: Pupils are equal, round and reactive to light accommodation. Eye muscles and extraocular movement intact. Sclera is anicteric. Neck; supple no lymphadenopathy, no thyromegaly or bruit Lungs: Normal respiratory rate/effort. Breath sounds bilateral equal and clear Heart: Normal rate. s1s2 normal. No rub or gallop. Extremities: no edema. No varicose veins Neurological: Patient is alert, awake and oriented to person, place and time. No focal deficit. Strength bilateral appropriate and equal Skin: Warm and dry. Normal turgor. No rash. Palpitation: Normal elasticity for age Abdomen: Abdomen is soft. Bowel sounds +. There is no abdominal tenderness, no guarding/rigidity or organomegaly Psych: lackl insight and normal affect/mood MSK: no joint tenderness or swelling. Digits and nails normal, no deformity : kidney or bladder not palpable Access: AVF Labs/imaging reviewed. Past medical history, past surgical history, family history, social history, allergy reviewed and noted as below Family Hx: no hx of CKD. Non contributory Objective - Vital Signs/Intake and Output Vital Signs (last 24 hours): Temp Pulse Resp BP Pulse Ox 97.7 F 71 20 154/67 H 100 02/16/18 07:47 02/16/18 07:47 02/16/18 07:47 02/16/18 10:24 02/16/18 07:47 Intake and Output: 02/16/18 02/16/18 06:59 18:59 Output Total 200 Balance -200 - Medications Medications: Current Medications Amlodipine Besylate (Norvasc) 10 mg PO DAILY [facility] Last Admin: 02/16/18 10:24 Dose: 10 mg Aspirin (Aspirin Chewable) 81 mg PO DAILY [facility] Last Admin: 02/16/18 10:24 Dose: 81 mg Carvedilol (Coreg) 3.125 mg PO DAILY [facility] Last Admin: 02/16/18 10:24 Dose: 3.125 mg Enalapril Maleate (Vasotec) 2.5 mg PO DAILY [facility] Last Admin: 02/16/18 10:24 Dose: 2.5 mg Heparin Sodium (Porcine) (Heparin) 2,000 units IVP TTS [facility] Last Admin: 02/15/18 14:09 Dose: 2,000 units Heparin Sodium (Porcine) (Heparin) 5,000 units SC Q8 [facility] Last Admin: 02/16/18 14:20 Dose: 5,000 units Levothyroxine Sodium (Synthroid) 25 mcg PO DAILY@0630 [facility] Last Admin: 02/16/18 05:40 Dose: 25 mcg Rosuvastatin Calcium (Crestor) 2.5 mg PO HS [facility] Last Admin: 02/15/18 21:15 Dose: 2.5 mg Vitamin B Complex/Vit C/Folic Acid (Nephro-Dana) 1 tab PO 0800 [facility] Last Admin: 02/16/18 10:24 Dose: 1 tab - Labs Labs: 02/16/18 07:26 02/16/18 07:26 PT 11.6 SECONDS (9.7-12.2) 02/14/18 19:17 INR 1.1 02/14/18 19:17 APTT 30 SECONDS (21-34) 02/14/18 19:17
--- NOTE | 2018-02-16 16:53 | CP.PCM.PN ---
Subjective - Date & Time of Evaluation Date of Evaluation: 02/16/18 Time of Evaluation: 16:50 - Subjective Subjective: PGY-1 Medicine Progress Note for Dr. Ch's service Patient seen and examined at bedside. Patient offers no acute complaints. Patient denies fevers, chills, chest pain, sob, n/v, constipation or diarrhea, and dysuria. Objective - Vital Signs/Intake and Output Vital Signs (last 24 hours): Temp Pulse Resp BP Pulse Ox 97.7 F 71 20 154/67 H 100 02/16/18 07:47 02/16/18 07:47 02/16/18 07:47 02/16/18 10:24 02/16/18 07:47 Intake and Output: 02/16/18 02/16/18 06:59 18:59 Output Total 200 Balance -200 - Medications Medications: Current Medications Amlodipine Besylate (Norvasc) 10 mg PO DAILY [facility] Last Admin: 02/16/18 10:24 Dose: 10 mg Aspirin (Aspirin Chewable) 81 mg PO DAILY [facility] Last Admin: 02/16/18 10:24 Dose: 81 mg Carvedilol (Coreg) 3.125 mg PO DAILY [facility] Last Admin: 02/16/18 10:24 Dose: 3.125 mg Enalapril Maleate (Vasotec) 2.5 mg PO DAILY [facility] Last Admin: 02/16/18 10:24 Dose: 2.5 mg Heparin Sodium (Porcine) (Heparin) 2,000 units IVP TTS [facility] Last Admin: 02/15/18 14:09 Dose: 2,000 units Heparin Sodium (Porcine) (Heparin) 5,000 units SC Q8 [facility] Last Admin: 02/16/18 14:20 Dose: 5,000 units Levothyroxine Sodium (Synthroid) 25 mcg PO DAILY@0630 [facility] Last Admin: 02/16/18 05:40 Dose: 25 mcg Rosuvastatin Calcium (Crestor) 2.5 mg PO HS [facility] Last Admin: 02/15/18 21:15 Dose: 2.5 mg Vitamin B Complex/Vit C/Folic Acid (Nephro-Dana) 1 tab PO 0800 [facility] Last Admin: 02/16/18 10:24 Dose: 1 tab - Labs Labs: 02/16/18 07:26 02/16/18 07:26 PT 11.6 SECONDS (9.7-12.2) 02/14/18 19:17 INR 1.1 02/14/18 19:17 APTT 30 SECONDS (21-34) 02/14/18 19:17 - Additional Findings Additional findings: - Constitutional Appears: Non-toxic, No Acute Distress - Head Exam Head Exam: NORMAL INSPECTION, NORMOCEPHALIC - Eye Exam Eye Exam: EOMI, Normal appearance. absent: Nystagmus, Scleral icterus - ENT Exam ENT Exam: Mucous Membranes Dry - Respiratory Exam Respiratory Exam: Rales, NORMAL BREATHING PATTERN. absent: Accessory Muscle Use, Chest Wall Tenderness, Decreased Breath Sounds, Rhonchi, Wheezes - Cardiovascular Exam Cardiovascular Exam: REGULAR RHYTHM, +S1, +S2. absent: Tachycardia - GI/Abdominal Exam GI & Abdominal Exam: Soft, Normal Bowel Sounds. absent: Distended, Firm, Guarding, Rigid, Tenderness - Extremities Exam Extremities Exam: Normal Inspection. absent: Calf Tenderness, Pedal Edema - Neurological Exam Neurological Exam: Alert, Awake, Oriented x3 - Psychiatric Exam Psychiatric exam: Normal Affect, Normal Mood - Skin Skin Exam: Intact, Normal Color Assessment and Plan - Assessment and Plan (Free Text) Assessment: Patient is an 82 yo female w/ past medical history of ESRD o HD (TTHs), HTN, Hypercholesterolemia, and hypothyroidism admitted for feeling dizzy, sob, and chest pain. Chest xray and BNP were suggestive of fluid overload which prompted emergent dialysis overnight. Patient received dialysis in early AM today and nephrology: Dr. Culp (her rn or lpn) were consulted. Plan: Dizziness/Shortness of Breath likely 2/2 to fluid overload to do CKD stage 5 (unsure if patient had Wednesday scheduled dialysis session at [place]) Nephrology Consulted: Dr. Culp- emergent dialysis session in AM; appreciate further recommendations EKG: negative for NSTEMI or STEMI Chest Xray- mild pulmonary venous congestion inferred; trace bilateral pleural effusions and/or pleural thickening Echo pending pro-BNP: 68129 on admission Troponin x 3 negative ESRD on HD TTHS schedule Patient had dialysis in early AM Vitamin B complex/Vit C 1 tab po HTN Coreg 3.125mg po daily Vasotec 2.5mg po daily Norvasc 10mg po daily magdy Hypercholesterolemia Crestor 2.5 mg po HS magdy Hypothyroidism Synthroid 25mcg po daily magdy PPX DVT ppx: Heparin 5000 units sc q8 magdy GI ppx: not indicated at this time Disposition: Likely dc in am after dialysis and echo full read PGY-1 [facility] discussed with Dr. Ch
[2018-02-16] MEDS: Rosuvastatin Calcium 2.5 mg Tab PO SCH (21:07)
--- NOTE | 2018-02-17 01:39 | PN ---
DATE: 02/16/2018 SUBJECTIVE: The patient is comfortable. She denies any shortness of breath or chest pain. PHYSICAL EXAMINATION: VITAL SIGNS: Blood pressure 164/63, heart rate 71, temperature 97.7, respirations 20. HEENT: Normocephalic. CHEST: Diminished breath sounds at the bases. HEART: S1 and S2 regular. EXTREMITIES: No edema. LABORATORY DATA: Today's hemoglobin and hematocrit 10.5 and 32.2. Today's BUN and creatinine are 24 and 4.4 respectively. Three sets of troponins are not in elevated range. ASSESSMENT: 1. Status post volume overload. 2. End-stage renal disease, on hemodialysis. 3. Systolic heart failure. 4. Moderate to severe pulmonary hypertension. 5. Mild anemia. RECOMMENDATIONS: Continue current aspirin 81 mg once a day, Coreg 3.125 mg twice a day, Crestor 2.5 mg once a day, subcutaneous heparin 5000 units subcutaneous every 8 hours, Norvasc 10 mg once a day, enalapril 2.5 mg daily. We will follow the echocardiographic study performed today. Wilbert Campos MD
[2018-02-17] MEDS: Levothyroxine 25 MCG TAB PO SCH (05:38)
--- NOTE | 2018-02-17 06:49 | CARD ---
APPROVED REPORT Date of service: 02/16/2018 EXAM: Two-dimensional and M-mode echocardiogram with Doppler and color Doppler. Other Information Quality : GoodRhythm : Atrial Fibrillation INDICATION Dyspnea Cardiomyopathy RISK FACTORS Hypertension Hyperlipidemia 2D DIMENSIONS IVSd1.1 (0.7-1.1cm)LVDd4.5 (3.9-5.9cm) PWd0.8 (0.7-1.1cm)LA [id number] (18-58mL) LVDs3.5 (2.5-4.0cm)FS (%) 21.7 % LVEF (%)44.0 (>50%)LVEF (Bryant's)57.96 % IVC0.00 cm M-Mode DIMENSIONS RVDd1.46 (2.1-3.2cm)Left Atrium (MM)3.69 (2.5-4.0cm) IVSd0.85 (0.7-1.1cm)Aortic Root2.58 (2.2-3.7cm) LVDd4.72 (4.0-5.6cm)Aortic Cusp Exc.1.79 (1.5-2.0cm) PWd0.81 (0.7-1.1cm)FS (%) 28 % LVDs3.38 (2.0-3.8cm)TAPSE12.54 cm LVEF (%)55 (>50%) Aortic Valve AI P 1/2 [id number] Mitral Valve MV E Almdtudj266.7cm/sMV A Pcgqacdq00.2cm/sE/A ratio1.5 HHQS066.20 cm/s TDI Lateral E' Peak V6.03cm/sMedial E' Peak V4.74cm/sE/Lateral E'21.7 E/Medial E'27.6 Tricuspid Valve TR Peak [id number]/sTR Peak Gr.[id number] LEFT VENTRICLE The left ventricle is normal size. There is normal left ventricular wall thickness. Left ventricle systolic function is normal. The Ejection Fraction is 55-60%. There is normal LV segmental wall motion. The left ventricular diastolic function is normal. RIGHT VENTRICLE The right ventricle is normal size. There is normal right ventricular wall thickness. The right ventricular systolic function is normal. ATRIA The left atrium is mildly dilated. The right atrium size is normal. The discontinuity of the interatrial septum is suggestive of an atrial septal defect. Suggest THOMAS AORTIC VALVE The aortic valve is normal in structure. There is mild aortic regurgitation. There is no aortic valvular stenosis. There is no aortic valvular vegetation. MITRAL VALVE The mitral valve is normal in structure. There is no evidence of mitral valve prolapse. There is no mitral valve stenosis. Mitral regurgitation is mild. TRICUSPID VALVE The tricuspid valve is normal in structure. There is moderate to severe tricuspid regurgitation. Right ventricular systolic pressure is estimated at 40-50 mmHg. There is mild-moderate pulmonary hypertension. PULMONIC VALVE The pulmonic valve is not well visualized. There is mild pulmonic valvular regurgitation. GREAT VESSELS The aortic root is normal in size. PERICARDIAL EFFUSION There is a small-moderate loculated posterior pericardial effusion. There are no echocardiographic indications of cardiac tamponade. <Conclusion> Left ventricle systolic function is normal. The Ejection Fraction is 55-60%. The discontinuity of the interatrial septum is suggestive of an atrial septal defect. Suggest THOMAS There is mild aortic regurgitation. Mitral regurgitation is mild. There is moderate to severe tricuspid regurgitation. There is mild-moderate pulmonary hypertension. There is mild pulmonic valvular regurgitation. There is a small-moderate loculated posterior pericardial effusion. There are no echocardiographic indications of cardiac tamponade.
[2018-02-17 08:03] LABS: BASO # 0.1 K/uL (0.0-0.2); BASO % 1.3 % (0.0-2.0); EOS # 0.4 K/uL (0.0-0.7); EOS % 7.2 % (0.0-4.0); HEMOGLOBIN 11.7 g/dL (11.0-16.0); LYMPH # 1.7 K/uL (1.0-4.3); LYMPH % 33.8 % (20.0-40.0); MEAN CELL VOLUME 96.4 fL (81.0-99.0); MEAN CORPUSCULAR HEMOGLOBIN 31.6 pg (27.0-31.0); MEAN CORPUSCULAR HGB CONC 32.7 g/dL (33.0-37.0); MEAN PLATELET VOLUME 9.9 fL (7.2-11.7); MONO # 0.5 K/uL (0.0-0.8); MONO % 9.1 % (0.0-10.0); NEUT # 2.5 K/uL (1.8-7.0); NEUT % 48.6 % (50.0-75.0); NRBC % 0.2 % (0.0-2.0); RBC 3.7 Mil/uL (3.80-5.20); RED CELL DISTRIBUTION WIDTH 17.1 % (11.5-14.5); WHITE BLOOD COUNT 5.1 K/uL (4.8-10.8)
[2018-02-17 08:22] LABS: ALB/GLOB RATIO 1.2 (1.0-2.1); ALBUMIN 4.6 g/dL (3.5-5.0); CALCIUM 8.2 mg/dl (8.6-10.4)
[2018-02-17] MEDS: Multivitamin Vitamin B Complex (Nephro-Vite) Tab PO SCH (09:21)
--- NOTE | 2018-02-17 12:14 | CP.PCM.PN ---
Subjective - Date & Time of Evaluation Date of Evaluation: 02/17/18 Time of Evaluation: 12:13 - Subjective Subjective: Nephrology Consultation Note: Assessment: Stable fluid overload Hypertensive Chronic Kidney Disease (I12.0) End stage renal disease (N18.6) dependence on hemodialysis (Z99.2) (TTS) via AVF Anemia (D64.9), Hyperphosphatemia (E83.39), Secondary Hyperparathyroidism (E21.1), HTN (I12.0) pericardial effusion pulmonary HTN sCHF LVEf mildly reduced Plan: Will plan for HD today as ordered. Continue with Nephrovite 1 tab/day. PRBC as needed for anemia. not on NIRMAL with dialysis as last Hb 11.4 Continue with phos binders BP control with meds as ordered. Patient on RAAS sayra. stopped norvasc as BP low side now Glycemic control, Dialysis consistent diet Further work up/management as per primary team Dose meds/antibiotics (if needed) for ESRD status. Avoid fleets enema/magnesium based laxatives. pt educated to limite fluid gain. need Low Na diet. she admits to drinking too much coffee/liquids Thanks for allowing me to participate in care of your patient. Will follow patient with you. Please call if any Qs Dr Rome Murrell Office: [phone] Chief Complaint;SOB HPI: Pt is a 82 Fwith hx of ESRD on hemodialysis (TTS) via AVF , last dialysis yesterday, chronic anemia, hyperphosphatemia, secondary hyperparathyroidism, ypertension presented with complaints of SOB. Renal consult requested for ESRD management. she feels better now. got HD yesterday for fluif overload ROS: Cardiovascular: No chest pain. Pulmonary: No shortness of breath now Gastrointestinal: denies abdominal pain No nausea. No vomiting. Genitourinary: No pain while urinating. Denies blood in urine. All other negative but limited except as mentioned in HPI Physical Examination: seen on HD General Appearance: Comfortable, in no acute respiratory distress, co-operative . Vitals reviewed and noted as below Head; Atraumatic, normocephalic ENT: no ulcers no thrush. Tongue is midline. Oropharynx: no rash or ulcers. EYES: Pupils are equal, round and reactive to light accommodation. Eye muscles and extraocular movement intact. Sclera is anicteric. Neck; supple no lymphadenopathy, no thyromegaly or bruit Lungs: Normal respiratory rate/effort. Breath sounds bilateral equal and clear Heart: Normal rate. s1s2 normal. No rub or gallop. Extremities: no edema. No varicose veins Neurological: Patient is alert, awake and oriented to person, place and time. No focal deficit. Strength bilateral appropriate and equal Skin: Warm and dry. Normal turgor. No rash. Palpitation: Normal elasticity for age Abdomen: Abdomen is soft. Bowel sounds +. There is no abdominal tenderness, no guarding/rigidity or organomegaly Psych: lackl insight and normal affect/mood MSK: no joint tenderness or swelling. Digits and nails normal, no deformity : kidney or bladder not palpable Access: AVF Labs/imaging reviewed. Past medical history, past surgical history, family history, social history, allergy reviewed and noted as below Family Hx: no hx of CKD. Non contributory Objective - Vital Signs/Intake and Output Vital Signs (last 24 hours): Temp Pulse Resp BP Pulse Ox 98.1 F 68 18 118/56 L 99 02/17/18 09:15 02/17/18 11:38 02/17/18 09:15 02/17/18 11:45 02/17/18 09:15 - Medications Medications: Current Medications Aspirin (Aspirin Chewable) 81 mg PO DAILY [facility] Last Admin: 02/17/18 09:20 Dose: Not Given Carvedilol (Coreg) 3.125 mg PO DAILY [facility] Last Admin: 02/17/18 09:20 Dose: Not Given Enalapril Maleate (Vasotec) 2.5 mg PO DAILY [facility] Last Admin: 02/17/18 09:21 Dose: Not Given Heparin Sodium (Porcine) (Heparin) 2,000 units IVP TTS [facility] Last Admin: 02/17/18 10:20 Dose: 2,000 units Heparin Sodium (Porcine) (Heparin) 5,000 units SC Q8 [facility] Last Admin: 02/17/18 05:38 Dose: 5,000 units Levothyroxine Sodium (Synthroid) 25 mcg PO DAILY@0630 [facility] Last Admin: 02/17/18 05:38 Dose: 25 mcg Rosuvastatin Calcium (Crestor) 2.5 mg PO HS [facility] Last Admin: 02/16/18 21:07 Dose: 2.5 mg Vitamin B Complex/Vit C/Folic Acid (Nephro-Dana) 1 tab PO 0800 [facility] Last Admin: 02/17/18 09:21 Dose: Not Given - Labs Labs: 02/17/18 07:52 02/17/18 07:52 PT 11.6 SECONDS (9.7-12.2) 02/14/18 19:17 INR 1.1 02/14/18 19:17 APTT 30 SECONDS (21-34) 02/14/18 19:17
--- NOTE | 2018-02-17 14:15 | CP.PCM.DIS ---
Provider - Provider Date of Admission: 02/14/18 21:13 Attending physician: Harijt Bourgeois MD Consults: 02/15/18 00:33 Nephrology Consult Routine Comment: Consulting Provider: Manuel Culp Consulting Physician: Manuel Culp Reason for Consult: Dizziness, sob, Hemodialysis 02/15/18 12:16 Cardiology Consult Routine Comment: Consulting Provider: Wilbert Campos Consulting Physician: Wilbert Campos Reason for Consult: Possible CHF Exacerbation. Hx ESRD on HD. Last Echo EF 40% Time Spent in preparation of Discharge (in minutes): 45 Hospital Course - Lab Results Lab Results: Most Recent Lab Values WBC 5.1 K/uL (4.8-10.8) 02/17/18 07:52 RBC 3.70 Mil/uL (3.80-5.20) L 02/17/18 07:52 Hgb 11.7 g/dL (11.0-16.0) 02/17/18 07:52 Hct 35.6 % (34.0-47.0) 02/17/18 07:52 MCV 96.4 fL (81.0-99.0) 02/17/18 07:52 MCH 31.6 pg (27.0-31.0) H 02/17/18 07:52 MCHC 32.7 g/dL (33.0-37.0) L 02/17/18 07:52 RDW 17.1 % (11.5-14.5) H 02/17/18 07:52 Plt Count 157 K/uL (130-400) 02/17/18 07:52 MPV 9.9 fL (7.2-11.7) 02/17/18 07:52 Neut % (Auto) 48.6 % (50.0-75.0) L 02/17/18 07:52 Lymph % (Auto) 33.8 % (20.0-40.0) 02/17/18 07:52 Burnett % (Auto) 9.1 % (0.0-10.0) 02/17/18 07:52 Eos % (Auto) 7.2 % (0.0-4.0) H 02/17/18 07:52 Baso % (Auto) 1.3 % (0.0-2.0) 02/17/18 07:52 Neut # (Auto) 2.5 K/uL (1.8-7.0) 02/17/18 07:52 Lymph # (Auto) 1.7 K/uL (1.0-4.3) 02/17/18 07:52 Burnett # (Auto) 0.5 K/uL (0.0-0.8) 02/17/18 07:52 Eos # (Auto) 0.4 K/uL (0.0-0.7) 02/17/18 07:52 Baso # (Auto) 0.1 K/uL (0.0-0.2) 02/17/18 07:52 PT 11.6 SECONDS (9.7-12.2) 02/14/18 19:17 INR 1.1 02/14/18 19:17 APTT 30 SECONDS (21-34) 02/14/18 19:17 Sodium 137 mmol/L (132-148) 02/17/18 07:52 Potassium 4.2 mmol/L (3.6-5.2) 02/17/18 07:52 Chloride 95 mmol/L (98-107) L 02/17/18 07:52 Carbon Dioxide 25 mmol/L (22-30) 02/17/18 07:52 Anion Gap 21 (10-20) H 02/17/18 07:52 BUN 36 mg/dL (7-17) H 02/17/18 07:52 Creatinine 5.9 mg/dL (0.7-1.2) H 02/17/18 07:52 Est GFR ( Amer) 8 02/17/18 07:52 Est GFR (Non-Af Amer) 7 02/17/18 07:52 Random Glucose 117 mg/dL (65-105) H 02/17/18 07:52 Calcium 8.2 mg/dl (8.6-10.4) L 02/17/18 07:52 Phosphorus 2.9 mg/dL (2.5-4.5) 02/14/18 18:57 Magnesium 2.3 mg/dL (1.6-2.3) 02/14/18 18:57 Total Bilirubin 0.9 mg/dL (0.2-1.3) 02/17/18 07:52 AST 32 U/L (14-36) 02/17/18 07:52 ALT 27 U/L (9-52) 02/17/18 07:52 Alkaline Phosphatase 124 U/L (38-126) 02/17/18 07:52 Troponin I 0.0260 ng/mL (0.00-0.120) 02/15/18 06:57 NT-Pro-B Natriuret Pep 04001 pg/mL (0-900) H 02/14/18 19:18 Total Protein 8.4 g/dL (6.3-8.3) H 02/17/18 07:52 Albumin 4.6 g/dL (3.5-5.0) 02/17/18 07:52 Globulin 3.8 gm/dL (2.2-3.9) 02/17/18 07:52 Albumin/Globulin Ratio 1.2 (1.0-2.1) 02/17/18 07:52 - Hospital Course Hospital Course: Upon admission Patient is a 82 year old female with pmhx of ESRD on HD TTHS, HTN, hypercholesterolemia, hypothyroidism that came to the ED after feeling dizzy and feeling like passing out while she was at an adult day care in the afternoon. As per daughter at bedside, a nurse at daycare took patient pressure and it was elevated. Patient states she felt short of breath and chest pain. Patient did not lose consciousness and did not experience any trauma. Patient admits to feeling tired more often and having difficulty going up the stairs to the second floor where she lives since a week ago. Patient experiences CP with shortness of breath when walking. Patient admits to going to the bathroom to urinate about 7 times but having very little urine output. Patient sleeps with 2 pillows at night time. Patient admits to decrease appetite. Denies fever, chills, headaches, nausea, vomiting, diarrhea, constipation, extremity swelling, changes in vision, or urinary symptoms Hospital Course Patient is an 82 yo female w/ past medical history of ESRD o HD (TTHs), HTN, Hypercholesterolemia, and hypothyroidism admitted for feeling dizzy, sob, and chest pain. Chest xray and BNP were suggestive of fluid overload which prompted emergent dialysis overnight. 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 Patient has been stable and receive dialysis with no complications. Patient is discharged with instructions to continue her scheduled dialysis. Discharge plan 1. Patient is stable for discharge to home after dialysis as per Dr. Ch. 2. Patient will followup with her primary medical doctor within, Dr. Nesbitt, 7 d ays of discharge from hospital. 3. Patient will resume all home medications as no medication adjustments were made during this admission. Aspirin 81 mg PO 1 tablet daily (at 8 AM) # 30 Coreg 3.125 mg PO 1 tablet daily (at 8AM) #30 Levothyroxine 25 mg PO 1 tablet daily (on an empty stomach before breakfast) Rewela 1,6000 mg PO 3 tablets daily (8 AM, 2 PM, 8 PM) #90 Atovastatin 40 mg PO 1 tablet daily (8 PM) #30 Follow regular Hemodialysis schedule at [facility] Continue your Vit. D and calcium supplementation you have at home. Follow up with you PMD, Dr. Nesbitt with in 1 week. 4. Patient should return to hospital if symptoms worsen or recur. 5. Patient understands the plan above and agrees. Disclaimer: Written above is a synopsis of patient's current hospital admission. For full report refer to EMR. Discharge Exam - Head Exam Head Exam: ATRAUMATIC, NORMAL INSPECTION, NORMOCEPHALIC - Eye Exam Eye Exam: EOMI, Normal appearance Pupil Exam: NORMAL ACCOMODATION, PERRL - ENT Exam ENT Exam: Mucous Membranes Moist - Respiratory Exam Respiratory Exam: NORMAL BREATHING PATTERN. absent: Rales, Rhonchi, Wheezes - Cardiovascular Exam Cardiovascular Exam: REGULAR RHYTHM, +S1, +S2. absent: Tachycardia - GI/Abdominal Exam GI & Abdominal Exam: Normal Bowel Sounds, Soft. absent: Diminished Bowel Sounds, Distended, Firm, Guarding, Hernia, Tenderness - Extremities Exam Extremities exam: normal inspection - Neurological Exam Neurological exam: Alert, Oriented x3 - Psychiatric Exam Psychiatric exam: Normal Affect, Normal Mood - Skin Skin Exam: Intact, Normal Color Discharge Plan - Discharge Medications Prescriptions: Aspirin [Aspirin Chewable] 81 mg PO DAILY #30 chew Atorvastatin [Lipitor] 40 mg PO DAILY #30 tab Carvedilol [Coreg] 3.125 mg PO DAILY #30 tab Levothyroxine [Synthroid] 25 mcg PO DAILY #30 tab Sevelamer Carbonate [Renvela] 1,600 mg PO TIDCC #90 tab - Follow Up Plan Condition: STABLE Disposition: HOME/ ROUTINE Instructions: Heart Failure, Adult (DC), Shortness of Breath (Dyspnea) (DC), Chest Pain (DC), End Stage Kidney Disease (DC), Dialysis and Diet Additional Instructions: 1. Patient is stable for discharge to home after dialysis as per Dr. Ch. 2. Patient will followup with her primary medical doctor within, Dr. Nesbitt, 7 days of discharge from hospital. 3. Patient will resume all home medications as no medication adjustments were made during this admission. Aspirin 81 mg PO 1 tablet daily (at 8 AM) # 30 Coreg 3.125 mg PO 1 tablet daily (at 8AM) #30 Levothyroxine 25 mg PO 1 tablet daily (on an empty stomach before breakfast) Rewela 1,6000 mg PO 3 tablets daily (8 AM, 2 PM, 8 PM) #90 Atovastatin 40 mg PO 1 tablet daily (8 PM) #30 Follow regular Hemodialysis schedule at [facility] Continue your Vit. D and calcium supplementation you have at home. Follow up with you PMD, Dr. Nesbitt with in 1 week. 4. Patient should return to hospital if symptoms worsen or recur. 5. Patient understands the plan above and agrees.
[2018-02-17 15:58] VITALS: BP 147/63; RESP 20; TEMP 98.6; O2SAT 97
--- NOTE | 2018-02-17 18:08 | PN ---
DATE: 02/17/2018 SUBJECTIVE: The patient denies any chest pain or shortness of breath. PHYSICAL EXAMINATION: VITAL SIGNS: Blood pressure 118/66, heart rate 70, temperature 97.5, respirations 16. HEENT: Normocephalic. CHEST: Clear. HEART: S1 and S2 regular. EXTREMITIES: No edema. LABORATORY DATA: Hemoglobin, hematocrit, white count and platelet count are within normal limit. Today's BUN and creatinine are 36 and 5.9 respectively. Glucose 117. 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 There is no flow across the atrial septum. There was no color flow across the interatrial septum and THOMAS is not justified at this time in absence of any acute neurological symptoms. The study also showed [id number]-[id number] pulmonary hypertension, [id number] loculated posterior pericardial effusion, mild aortic and mild mitral insufficiency. ASSESSMENT: 1. Status post volume overload. 2. End-stage renal disease, on hemodialysis. 3. Hkwl-zx-hxmvfakl posterior effusion. 4. Hypothyroidism. 5. Noncompliance. RECOMMENDATIONS: Continue Crestor 2.5 mg once a day, Synthroid 25 mcg once a day, enalapril 2.5 mg once a day. No further cardiac workup is indicated at this time. Wilbert Campos MD
[2018-02-17 18:37] VITALS: PULSE 82
--- NOTE | 2018-02-18 05:14 | CARD ---
APPROVED REPORT Date of service: 02/15/2018 EKG Measurement Heart [id number] <Conclusion> Normal sinus rhythm Nonspecific ST and T wave abnormality Abnormal ECG
--- NOTE | 2018-02-18 05:25 | CARD ---
APPROVED REPORT Date of service: 02/15/2018 EKG Measurement Heart [id number] <Conclusion> Normal sinus rhythm Prolonged QT Abnormal ECG
--- NOTE | 2018-02-18 05:26 | CARD ---
APPROVED REPORT Date of service: 02/15/2018 EKG Measurement Heart [id number] <Conclusion> Normal sinus rhythm Nonspecific T wave abnormality Abnormal ECG
--- NOTE | 2018-02-18 05:29 | CARD ---
APPROVED REPORT Date of service: 02/14/2018 EKG Measurement Heart [id number] <Conclusion> Normal sinus rhythm Rightward axis Nonspecific ST abnormality Abnormal ECG
== END 2018-02-17 18:41 | disposition home or self-care (01) | DRG 544 ==
LOC: C.ER 17:58 → C.9E 21:13 → C.6T 02-15 02:32 → C.9E 02-15 02:32 → C.6T 02-15 15:37
PROVIDERS: ADMIT Family Medicine; ATTEND Family Medicine
PROC: 5A1D70Z Performance of Urinary Filtration, Intermittent, Less than 6 Hours Per Day (ICD-10-PCS; principal; 2018-02-14)
PROC: 5A1D70Z Performance of Urinary Filtration, Intermittent, Less than 6 Hours Per Day (ICD-10-PCS; 2018-02-15)
PROC: 5A1D70Z Performance of Urinary Filtration, Intermittent, Less than 6 Hours Per Day (ICD-10-PCS; 2018-02-17)
DX: I13.2 Hypertensive heart and chronic kidney disease with heart failure and with stage 5 chronic kidney disease, or end stage renal disease (principal); I50.20 Unspecified systolic (congestive) heart failure; J44.9 Chronic obstructive pulmonary disease, unspecified; N18.6 End stage renal disease; I31.3 Pericardial effusion (noninflammatory); I27.20 Pulmonary hypertension, unspecified; N25.81 Secondary hyperparathyroidism of renal origin; Z91.19 Patient's noncompliance with other medical treatment and regimen; Z99.2 Dependence on renal dialysis; E03.9 Hypothyroidism, unspecified; D64.9 Anemia, unspecified